=== PATIENT | female | born 1965 | race Caucasian/White ===

== ENCOUNTER → 2016-08-15 | Outpatient (CLI) | payer OTHER | END | disposition home or self-care (01) | LOC: RADMRIMAIN 17:46 | PROVIDERS: ATTEND Nurse Practitioner Acute Care | DX: Z53.9 Procedure and treatment not carried out, unspecified reason (principal) ==

== ENCOUNTER 2016-09-15 21:21 | Emergency (ER) | payer OTHER ==
[2016-09-15 21:45] VITALS: BP 145/79; PULSE 90; RESP 20; TEMP 98.2
--- NOTE | 2016-09-15 21:58 | ED ---
Lower Extremity Injury HPI - General Chief Complaint: Extremity Injury, Lower Stated Complaint: Knee Pain Time Seen by Provider: 09/15/16 21:48 Source: patient, RN notes reviewed Mode of arrival: wheelchair Limitations: no limitations - History of Present Illness Initial Comments: 51-year-old female presents emergency department with a chief complaint of bilateral lower external. Sensation is intact over by the dog. Patient states she's not having right chest pain radiating pain as well as minimal left. Patient states the discomfort. Patient states she did not hit her head with no other injury. Patient states she was concerned due to the symptoms that she thought that she should be evaluated. Patient denies any recent fever, chills, shortness of breath, chest pain, back pain, abdominal pain, nausea vomiting, numbness or tingling, dysuria or hematuria, constipation or diarrhea, headaches or visual changes, or any other current symptoms. - Related Data Home Medications Medication Instructions Recorded Confirmed Albuterol Inhaler [Ventolin 1 - 2 puff INHALATION RT-Q6H PRN 04/08/15 09/15/16 Inhaler] Aspirin 81 mg PO DAILY 04/08/15 09/15/16 Montelukast [Singulair] 10 mg PO HS 04/08/15 09/15/16 Ranitidine HCl [Zantac] 150 mg PO BID 04/08/15 09/15/16 Simvastatin [Zocor] 20 mg PO HS 04/08/15 09/15/16 metFORMIN HCL [Glucophage] 500 mg PO BID 04/08/15 09/15/16 Beclomethasone Dipropionate [Qvar 1 puff INHALATION RT-BID PRN 09/15/16 09/15/16 80 mcg] Glimepiride [Amaryl] 2 mg PO AC-BRKFST 09/15/16 09/15/16 Melatonin 3 mg PO HS PRN 09/15/16 09/15/16 Naproxen 500 mg PO DAILY PRN 09/15/16 09/15/16 Previous Rx's Medication Instructions Recorded Lisinopril [Zestril] 5 mg PO DAILY #7 tablet 01/25/16 Ibuprofen [Motrin] 600 mg PO Q6HR PRN #20 tab 09/15/16 Allergies Allergy/AdvReac Type Severity Reaction Status Date / Time oxycodone Allergy Hallucinati Verified 09/15/16 22:08 ons Review of Systems ROS Statement: Those systems with pertinent positive or pertinent negative responses have been documented in the HPI. ROS Other: All systems not noted in ROS Statement are negative. Past Medical History Past Medical History: COPD History of Any Multi-Drug Resistant Organisms: None Reported Past Surgical History: Appendectomy, Tubal Ligation Additional Past Surgical History / Comment(s): vascular bypass Past Psychological History: Depression Smoking Status: Current every day smoker Past Alcohol Use History: None Reported Past Drug Use History: None Reported General Exam - General Exam Comments Initial Comments: General: The patient is awake and alert, in no distress, and does not appear acutely ill. Neck: The neck is supple, there is no tenderness. Cardiovascular: There is a regular rate and rhythm. No murmur, rub or gallop is appreciated. Respiratory: Lungs are clear to auscultation, respirations are non-labored, breath sounds are equal. No wheezes, stridor, rales, or rhonchi. Musculoskeletal: Patient has 2+ pulses throughout the right lower extremity. Patient has full range of motion of the right knee. There does appear to be a contusion with tenderness to anterior palpation of the proximal becerra. Full range of motion of the right ankle with some pedal malleolus tenderness and minimal swelling noted. Patient has 2+ pulses throughout the left lower extremity. Sensation is intact throughout. Patient does have full range of motion. No abnormality noted. Neurological: CN II-XII intact, There are no obvious motor or sensory deficits. Coordination appears grossly intact. Speech is normal. Skin: Skin is warm and dry and no rashes or lesions are noted. Psychiatric: Normal mood and affect. Limitations: no limitations Course Vital Signs 09/15/16 21:43 Temperature 98.2 F Pulse Rate 90 Respiratory 20 Rate Blood Pressure 145/79 O2 Sat by Pulse 98 Oximetry Medical Decision Making - Medical Decision Making 51-year-old female presents to the emergency Department chief complaint of fall. This time x-rays reviewed with essentially acute fracture. Symphysis patient has a left becerra contusion. Motrin Tylenol for pain control. We discussed rest ice and elevation. We discussed return parameters and questions. Discharged home. - Radiology Data Radiology results: report reviewed, image reviewed Disposition Clinical Impression: Contusion of skin, Fall, Right ankle sprain Disposition: HOME SELF-CARE Condition: Stable Instructions: Contusion in Adults (ED), Ankle Sprain (ED) Additional Instructions: Please use medication as discussed. Please follow up with family doctor if symptoms have not improved over the next two days. Please return to the emergency room if your symptoms increase or worsen or for any other concerns. Prescriptions: Ibuprofen [Motrin] 600 mg PO Q6HR PRN #20 tab PRN Reason: Pain Referrals: Aryan Noble MD [Primary Care Provider] - 1-2 days Time of Disposition: 22:47
[2016-09-15] MEDS ORDERED: KETOROLAC 60 MG/2 ML VIAL IM STA (22:27)
--- NOTE | 2016-09-15 22:45 | XR ---
History: Reason: Pain Exam: XR RIGHT TIB/FIB 4 images Comparison: None available FINDINGS: No fracture. Soft tissue swelling medial ankle and anterior to the proximal tibia. IMPRESSION: No fracture. Soft tissue swelling medial ankle and anterior to the proximal tibia.
== END 2016-09-15 23:07 | disposition home or self-care (01) ==
LOC: EC 21:21
DX: S93.401A Sprain of unspecified ligament of right ankle, initial encounter (principal); F17.200 Nicotine dependence, unspecified, uncomplicated; Z88.5 Allergy status to narcotic agent; Z79.84 Long term (current) use of oral hypoglycemic drugs; Z79.82 Long term (current) use of aspirin; Z79.899 Other long term (current) drug therapy; W54.8XXA Other contact with dog, initial encounter
CPT/HCPCS: 99283; 96372; 73590; J1885

== ENCOUNTER → 2016-09-22 | Outpatient (CLI) | payer OTHER ==
--- NOTE | 2016-09-22 12:01 | MR ---
EXAMINATION TYPE: MR lumbar spine wo con DATE OF EXAM: 09/22/2016 10:35 AM COMPARISON: NONE HISTORY: Back pain TECHNIQUE: T1 and T2 axial and sagittal images of the lumbar spine are submitted. FINDINGS: There is no abnormal signal seen within the visualized spinal cord or paraspinal soft tissu es. Simple appearing renal cyst noted. There is mild multilevel degenerative disc disease. At L1-2 there is no disc herniation or canal stenosis. No foraminal encroachment. At L2-3 there is left paracentral and lateral disc protrusion with mild to moderate left foraminal en croachment. Hypertrophic change of the facets. At L3-4 there is degenerative disc disease with diffuse disc bulging greater paracentrally and latera lly to the left with moderate left-sided foraminal encroachment At L4-5 there is facet arthropathy. There is no focal herniation although, there is diffuse disc bulg ing and mild bilateral foraminal encroachment. No Canal stenosis. At L5-S1 there is facet arthropathy but no disc herniation or canal stenosis. No neural foraminal enc roachment. IMPRESSION: 1. Mild multilevel degenerative disc disease with disc bulging paracentrally and laterally to left L2 -3 and L3-4 with left-sided foraminal encroachment. Paracentral and lateral disc protrusion at L2-3. 2. Circumferential disc bulging L4-5 with mild bilateral foraminal encroachment.
--- NOTE | 2016-09-22 12:08 | MR ---
EXAMINATION TYPE: MR C-spine wo DATE OF EXAM: 09/22/2016 10:22 AM COMPARISON: NONE HISTORY: Headaches and neck pain TECHNIQUE: T1 sagittal and coronal, T2 sagittal, and gradient echo axial views of the cervical spine are submitted. FINDINGS: The cranial cervical junction is preserved. Exam limited by motion artifact. Patient was c laustrophobic. Assessment spinal cord is nondiagnostic. Severe motion artifact resulting in nearly nondiagnostic study. There is suspicion for a disc protrus ion centrally at C6-C7 which abuts the anterior margin the spinal cord. However given the amount of a rtifact consider CT scan or repeat MRI for further assessment. Multilevel mild degenerative disc disease suspected. IMPRESSION: 1. Severe motion artifact due to claustrophobia markedly limits the exam. Assessment spinal cord is nondiagnostic due to motion. There is a suggestion of a central area of abnormal signal which could b e artifact. Central prominent canal or syrinx in the differential. Could not exclude myelitis. 2. Extreme motion artifact resulting in nearly nondiagnostic study for disc pathology. Suspect a cent ral disc protrusion or small herniation C6-C7 which abuts the anterior margin of the spinal cord. EXAMINATION TYPE: MR brain wo DATE OF EXAM: 09/22/2016 10:22 AM COMPARISON: NONE HISTORY: Headaches and neck pain T1-weighted sagittal, T2, FLAIR, and diffusion axial, and T2 coronal coronal views of the brain are s ubmitted. There is no evidence of acute ischemia. The ventricles, basal cisterns, and sulci overlying the conv exities are consistent with the patient's age. There is no mass effect. Craniocervical junction maintained. Sella turcica has a normal appearance. No cerebellopontine angle mass. Changes of chronic sinusitis noted. No midline shift. White matter: There are approximately 20 areas of abnormal signal seen throughout the white matter in a nonspecific pattern. All measure less than 5 mm. No callosal lesions. No lesions perpendicular to the ventricular system. IMPRESSION: 1. No acute intracranial process 2. Mild nonspecific white matter changes. BE seen with hypertension, migraine headaches, remote micro vascular ischemia, demyelinating process not excluded. Correlate clinically.
== END | disposition home or self-care (01) ==
LOC: RADMRIMAIN 09:10
PROVIDERS: ATTEND Psychiatry & Neurology Neurology
DX: M51.26 Other intervertebral disc displacement, lumbar region (principal); M51.36 Other intervertebral disc degeneration, lumbar region; R90.82 White matter disease, unspecified; M54.2 Cervicalgia; R51 Headache
CPT/HCPCS: 70551; 72141; 72148

== ENCOUNTER 2017-07-05 18:22 | Inpatient (IN) | payer OTHER ==
[2017-07-05] MEDS ORDERED: MORPHINE SULFATE 4 MG/ML SYRINGE IV STA (18:44)
[2017-07-05] MEDS ORDERED: ASPIRIN 81 MG PO STA (18:44)
[2017-07-05] MEDS ORDERED: NITROGLYCERIN OINT 1 INCH/GM PACKET TOPICAL STA (18:44)
[2017-07-05] MEDS ORDERED: ONDANSETRON 4 MG/2 ML VIAL IVP STA (18:44)
[2017-07-05] MEDS ORDERED: HEPARIN SODIUM,PORCINE 5,000 UNIT/ML 1 ML VIAL IV PRN (18:54)
[2017-07-05] MEDS ORDERED: HEPARIN SODIUM,PORCINE 5,000 UNIT/ML 1 ML VIAL IV ONE (18:54)
--- NOTE | 2017-07-05 18:54 | ED ---
Chest Pain HPI - General Chief Complaint: Chest Pain Stated Complaint: Chest pain Time Seen by Provider: 07/05/17 18:39 Source: patient Mode of arrival: wheelchair Limitations: no limitations - History of Present Illness Initial Comments: 19 years O female has a chest pain ongoing since yesterday morning, its in the center and radiates to the left side also complaining about the pain in the left arm she is short-winded it hurts to take a deep breath she has a smoker and she does have a history of family history of coronary artery disease and had a headache [place] at young age review of system is otherwise unremarkable area denies any headaches no neck stiffness no abdominal pain no frequency urgency dysuria no symptoms of TIA or CVA - Related Data Home Medications Medication Instructions Recorded Confirmed Albuterol Inhaler [Ventolin 1 - 2 puff INHALATION RT-Q6H PRN 04/08/15 09/15/16 Inhaler] Aspirin 81 mg PO DAILY 04/08/15 09/15/16 Montelukast [Singulair] 10 mg PO HS 04/08/15 09/15/16 Ranitidine HCl [Zantac] 150 mg PO BID 04/08/15 09/15/16 Simvastatin [Zocor] 20 mg PO HS 04/08/15 09/15/16 metFORMIN HCL [Glucophage] 500 mg PO BID 04/08/15 09/15/16 Beclomethasone Dipropionate [Qvar 1 puff INHALATION RT-BID PRN 09/15/16 09/15/16 80 mcg] Glimepiride [Amaryl] 2 mg PO AC-BRKFST 09/15/16 09/15/16 Melatonin 3 mg PO HS PRN 09/15/16 09/15/16 Naproxen 500 mg PO DAILY PRN 09/15/16 09/15/16 Previous Rx's Medication Instructions Recorded Lisinopril [Zestril] 5 mg PO DAILY #7 tablet 01/25/16 Ibuprofen [Motrin] 600 mg PO Q6HR PRN #20 tab 09/15/16 Allergies Allergy/AdvReac Type Severity Reaction Status Date / Time oxycodone Allergy Hallucinati Verified 07/05/17 18:28 ons Review of Systems ROS Statement: Those systems with pertinent positive or pertinent negative responses have been documented in the HPI. ROS Other: All systems not noted in ROS Statement are negative. EKG Findings - EKG Comments: EKG Findings:: EKG is a normal sinus rhythm ventricular rate is 94 UT interval is 142 QRS duration is 82 QT/QTc is 350/4:30 7D of this EKG revealed ST depression in lead [address] elevation is ST elevation in lead 3 and aVF noticed significant ST depression in lead V2 V3 V4 V5 and V6 Past Medical History Past Medical History: COPD, Fibromyalgia, Osteoarthritis (OA) History of Any Multi-Drug Resistant Organisms: None Reported Past Surgical History: Appendectomy, Tubal Ligation Additional Past Surgical History / Comment(s): vascular bypass Past Psychological History: Depression Smoking Status: Current every day smoker Past Alcohol Use History: None Reported Past Drug Use History: None Reported General Exam - General Exam Comments Initial Comments: General: The patient is awake and alert, in severe distress pain is 8/ 10 she is swetting she is crying Skin: Skin is warm and dry and no rashes or lesions are noted. Eye: Pupils are equal, round and reactive to light, extra-ocular movements are intact; there is normal conjunctiva bilaterally. Ears, nose, mouth and throat: There are moist mucous membranes and no oral lesions. Neck: The neck is supple, there is no tenderness or JVD. Cardiovascular: There is a regular rate and rhythm. No murmur, rub or gallop is appreciated. Respiratory: To auscultation bilateral, some compatible with a moderate COPD Gastrointestinal: Soft, non-distended, non-tender abdomen without masses or organomegaly noted. There is no rebound or guarding present. Bowel sounds are unremarkable. Back: There is no tenderness to palpation in the midline. There is no obvious deformity. Musculoskeletal: Normal ROM, no tenderness, There is no pedal edema. There is no calf tenderness or swelling. No cords were appreciated. Neurological: CN II-XII intact, Cranial nerves III through XII are intact. There are no obvious motor or sensory deficits. Coordination appears grossly intact. Speech is normal. Psychiatric: Cooperative, appropriate mood & affect, normal judgment. Limitations: no limitations Course Vital Signs 07/05/17 18:25 Temperature 97.9 F Pulse Rate 98 Respiratory 20 Rate Blood Pressure 130/86 O2 Sat by Pulse 95 Oximetry Critical Care Time Total Critical Care Time: 30 Critical Care Time: She came in with a severe chest pain, she is 52 years old she has a history of diabetes hyperlipidemia hypertension and she also has a family history of coronary artery disease she had a severe pain in the midsternal area since yesterday pain and told by her radiating to the left arm is very very typical presentation of myocardial ischemic phenomenon EKG was reviewed noticed some ST segment elevation and now lead 3 and aVF, this was compared with the old EKG back done in August 2011, there significant ischemic changes in V2 V3 V4 V5 and V6 she has a STEMI she had aspirin she had at night now she had a heparin no current to IV's lying STEMI alert was activated her cardiology on-call has been has been called and no free she be heading to the [facility] soon she be admitted to Dr. Michaels's service and she will pass gas will go to ICU, spoke with the Dr. Edgar and we have activated the [facility]rome[facility] Disposition Clinical Impression: Chest pain, STEMI (ST elevation myocardial infarction) Disposition: ADMITTED IP TO THIS HOSP
[2017-07-05] MEDS: SODIUM CHLORIDE 0.9% 1,000 ML IV STA ×2 (18:55→21:45)
[2017-07-05 19:00] LABS: Basophils # (A) 0.1 k/uL (0-0.2); Basophils % (A) 1 %; Eosinophils # (A) 0.2 k/uL (0-0.7); Eosinophils % (A) 2 %; HCT 49.1 % (34.0-46.0); HGB 15.7 gm/dL (11.4-16.0); Lymphocytes # (A) 3.3 k/uL (1.0-4.8); Lymphocytes % (A) 32 %; MCHC 31.9 g/dL (31.0-37.0); MCV 97.3 fL (80.0-100.0); Mean Platelet Volume 7.8; Monocytes # (A) 0.6 k/uL (0-1.0); Monocytes % (A) 6 %; Neutrophils # (A) 6.2 k/uL (1.3-7.7); Neutrophils % (A) 59 %; Platelet Count 284 k/uL (150-450); RBC 5.04 m/uL (3.80-5.40); RDW 13.1 % (11.5-15.5); WBC 10.6 k/uL (3.8-10.6)
[2017-07-05] MEDS ORDERED: HEPARIN SOD,PORK IN 0.45% NACL 25,000 UNIT in 0.45% NACL 1 500ML.BAG IV SCH (19:00)
[2017-07-05] MEDS ORDERED: MORPHINE SULFATE 4 MG/ML SYRINGE IVP STA (19:07)
[2017-07-05 19:13] LABS: ALT 47 U/L (9-52); AST 43 U/L (14-36); Albumin 4.3 g/dL (3.5-5.0); Alkaline Phosphatase 89 U/L (38-126); Anion Gap 10 mmol/L; Blood Urea Nitrogen 11 mg/dL (7-17); Carbon Dioxide 29 mmol/L (22-30); Chloride 103 mmol/L (98-107); Glucose 120 mg/dL (74-99); Potassium 4.2 mmol/L (3.5-5.1); Sodium 142 mmol/L (137-145); Total Bilirubin 0.6 mg/dL (0.2-1.3); Total Protein 7.3 g/dL (6.3-8.2)
[2017-07-05 19:18] LABS: D-Dimer 0.49 mg/L FEU (<0.60)
[2017-07-05 19:22] LABS: Prothrombin Time 9.5 sec (9.0-12.0)
--- NOTE | 2017-07-05 19:22 | XR ---
EXAMINATION TYPE: XR chest 2V DATE OF EXAM: 07/05/2017 COMPARISON: 09/24/2015. HISTORY: Chest pain TECHNIQUE: Frontal and lateral views of the chest are obtained. FINDINGS: Diffuse interstitial prominence is favored to relate to mild pulmonary vascular congestion. Heart is mildly enlarged. There is no focal air space opacity, pleural effusion, or pneumothorax se en. The osseous structures are intact. IMPRESSION: Mild interstitial prominence is favored to relate to mild interstitial edema in the sett ing of cardiomegaly and may relate to cardiogenic fluid overload.
[2017-07-05 19:36] LABS: Creatine Kinase MB 5.6 ng/mL (0.0-2.4); Troponin I 1.13 ng/mL (0.000-0.034)
[2017-07-05] MEDS ORDERED: NALOXONE 0.4 MG/ML 1 ML VIAL IV PRN (19:37)
[2017-07-05] MEDS ORDERED: IPRATROPIUM-ALBUTEROL 3 ML NEB INHALATION PRN (19:37)
[2017-07-05] MEDS ORDERED: MORPHINE SULFATE 4 MG/ML SYRINGE IV PRN ×2 (19:37→20:54)
[2017-07-05] MEDS ORDERED: VERAPAMIL 2.5 MG/ML 2 ML AMP ONE (19:39)
[2017-07-05] MEDS ORDERED: diphenhydrAMINE 50 MG/ML 1 ML VIAL ONE (19:42)
[2017-07-05] MEDS ORDERED: MIDAZOLAM 2 MG/2 ML VIAL ONE (19:42)
[2017-07-05] MEDS ORDERED: LIDOCAINE 2% INJ 20 MG/ML SQ ONE (19:46)
[2017-07-05] MEDS ORDERED: SODIUM CHLORIDE 0.9% 1,000 ML IV ONE (19:48)
[2017-07-05] MEDS ORDERED: diphenhydrAMINE 50 MG/ML 1 ML VIAL IVP ONE (19:48)
[2017-07-05] MEDS: MIDAZOLAM 2 MG/2 ML VIAL IV ONE ×2 (19:48→19:50)
[2017-07-05] MEDS: VERAPAMIL SYRINGE (5 MG/10 ML) INTRAARTER ONE ×2 (19:55→20:42)
[2017-07-05] MEDS ORDERED: BIVALIRUDIN BOLUS 250 MG/50 ML IV ONE (20:08)
[2017-07-05] MEDS ORDERED: BIVALIRUDIN 250 MG in SODIUM CHLORIDE 0.9% 50 ML IV ONE (20:09)
[2017-07-05] MEDS ORDERED: METOPROLOL TARTRATE 5 MG/5 ML VIAL IVP ONE (20:21)
[2017-07-05] MEDS: METOPROLOL TARTRATE 5 MG/5 ML VIAL IVP ONE ×2 (20:23→20:26)
[2017-07-05] MEDS ORDERED: NITROGLYCERIN 1000MCG/10ML SYRINGE INTRACORON ONE (20:23)
[2017-07-05] MEDS ORDERED: PRASUGREL 10 MG TAB ONE (20:33)
[2017-07-05] MEDS ORDERED: HYDROmorphone 2 MG/ML 1 ML SYRINGE ONE (20:37)
[2017-07-05] MEDS ORDERED: HYDROmorphone 2 MG/ML 1 ML SYRINGE IV ONE (20:40)
[2017-07-05] MEDS ORDERED: IOHEXOL 350 MG/ML (PER ML) 100ML BTL INJ ONE (20:42)
[2017-07-05] MEDS ORDERED: PRASUGREL 10 MG TAB PO ONE (20:42)
[2017-07-05] MEDS ORDERED: ZOLPIDEM 5 MG TAB PO PRN (20:55)
[2017-07-05] MEDS ORDERED: ATROPINE SULFATE 0.1 MG/ML 10ML SYRINGE IV PRN (20:55)
[2017-07-05] MEDS ORDERED: MAG HYDROX/AL HYDROX/SIMETH 30 ML CUP PO PRN (20:55)
[2017-07-05] MEDS ORDERED: NITROGLYCERIN SL TABS 0.4 MG TAB SUBLINGUAL PRN (20:55)
[2017-07-05] MEDS ORDERED: RX INFO: IV CONTRAST WAS GIVEN 1 EACH MISC MISCELLANE PRN (20:55)
[2017-07-05] MEDS ORDERED: ATORVASTATIN 10 MG TAB PO SCH (21:00)
[2017-07-05] MEDS ORDERED: metFORMIN 500 MG TAB PO SCH (21:00)
[2017-07-05] MEDS ORDERED: SODIUM CHLORIDE 0.9% 1,000 ML IV SCH (21:00)
[2017-07-05 21:19] LABS: Glucose,Whole Blood 118 mg/dL (75-99)
--- NOTE | 2017-07-05 21:36 | CONS ---
CONSULTATION Mrs. Plunkett is a 52-year-old lady who smokes at least 1 to 1-1/2 packs daily. She has hypertension, type 2 diabetes, hyperlipidemia, peripheral arterial disease and underwent in 2016 vascular surgery with aortobifem. The details of the surgery are unavailable. She had an operation here in [facility] and she went to [facility] for a redo operation for infection. In spite of this, she continues to smoke regularly. For the last 36 hours, she has been experiencing chest pressure which she describes as a heaviness and tightness that comes on with activity, goes away after about 5-7 minutes or so. This happened on and off for the last 36 hours, but today at about 3:30 her chest pressure became very constant and she had a heavy feeling radiating to both upper extremities and she came to the emergency room. She was seen by the emergency room physician, Dr. Laboy and EKG suggested a precordial ST-T pressure without any clear-cut ST elevation on the EKG. Given her presentation of the chest discomfort and precordial ST depression, she was advised to have a coronary angiography and intervention and the cardiac hot plate plywood press laborer team was called in. I saw the patient in the hot plate plywood press laborer. She was still having mild discomfort, but most of the pain had relieved and EKG showed almost near complete resolution of the ST-segment depression, which was seen in the emergency room. She was, however, hemodynamically stable and did not have much chest discomfort in the hot plate plywood press laborer as compared to the ER. EKG also revealed resolution of the precordial ST depression. PAST MEDICAL HISTORY: 1. Obesity. 2. Smoking and COPD. 3. Hyperlipidemia. 4. Type 2 diabetes mellitus on oral agents. 5. History of peripheral artery disease status post vascular surgery for lower extremities, details of which are not available. She has scars on both sites and has grafts. MEDICATIONS: At home include metformin 500 mg b.i.d., Januvia 100 mg daily, glimepiride 2 mg daily, trazodone 300 mg daily, vitamin D 2000 international units daily, simvastatin 20 mg daily, Singulair 10 mg daily. She is on a tapering dose of prednisone for bronchitis. ALLERGIES: ALLERGIES ARE OXYCODONE. EXAMINATION: Blood pressure was 120/80, pulse rate is about 90 per minute, regular. HEENT: Unremarkable. Fundus was not examined by me. NECK: Supple. There is no JVD. I do not hear a carotid bruit. Heart exam reveals S1, S2 heard normally but distantly. Lungs reveal bilateral decent air entry. Abdomen is soft, nontender. Lower extremities reveal diminished pulses. There are scars in both the groins. Radial pulses are palpable. Central nervous system grossly no focal deficits. EKG revealed a sinus mechanism, sinus tachycardia with precordial ST depression. LABORATORY DATA: Revealed that her initial troponin was 1.13. Other labs were within normal limits. IMPRESSION: 1. Acute ischemic syndrome, probably non-ST elevation myocardial infarction. 2. Type 2 diabetes mellitus. 3. History of vascular surgery, bilateral lower extremities has scars. 4. Obesity. 5. Smoking and chronic obstructive pulmonary disease. 6. Hyperlipidemia. RECOMMENDATIONS: I recommend cardiac catheterization and intervention and proceeded to perform the procedure expeditiously. The risks, benefits, options were carefully explained to the patient. She understood all details and wished to proceed. MMODL / IJN: [id number] /
[2017-07-05] MEDS ORDERED: SODIUM CHLORIDE 0.9% 250 ML IV ONE (21:46)
--- NOTE | 2017-07-05 21:57 | CC ---
CARDIAC CATHETERIZATION REPORT DATE OF SERVICE: 07/05/2017. PROCEDURE: 1. Left heart catheterization, coronary angiography. 2. Percutaneous transluminal coronary angiography (PTCA) and stenting of proximal circumflex coronary artery with a drug-eluting stent. PERFORMED BY: Dr. Aletha Edgar. ANESTHESIA: Moderate conscious sedation, time 54 minutes. Patient was monitored closely with oxygen saturation and vital signs. CLINICAL INFORMATION: Julianna Orozco is a 52-year-old lady with peripheral artery disease, hypertension, hyperlipidemia, type 2 diabetes, and previous bilateral lower extremity vascular surgery, details of which are not available. I explained to the patient that I will perform procedure from the right radial approach. She was pain-free at the time of the procedure. The previously noted precordial ST-segment depression had resolved. She was relatively stable hemodynamically. PROCEDURE NOTE: Under local anesthesia and strict aseptic precautions, a 6-Niuean introducer was placed in the right radial artery. I used a micropuncture needle technique. I used a standard right Bijal catheter for selective coronary angiography of the right coronary artery. The aortic root was somewhat narrow. I had some difficulty to gain access with a standard left Bijal catheter. I switched over to Ikari 3.5, 6-Niuean guide catheter. With this I cannulated the left coronary artery and obtained pictures. I noted that the circumflex had a tight proximal lesion. LAD had noncritical irregularities. RCA had a 35% proximal lesion. She had a codominant system. LV pressures were obtained with a pigtail catheter after intervention procedure. Following the procedure, a TR band was applied as per protocol. Good hemostasis was secured. Saturation in the fingers of the right hand was 97%. CARDIAC CATHETERIZATION FINDINGS: The left ventricle end-diastolic pressure was 20 mmHg. There was no gradient across aortic valve. CORONARY ANGIOGRAPHIC FINDINGS: Right coronary artery: Technically a codominant vessel, has about a 35% proximal lesion distally, has minor irregularities. No significant disease. It gives off what seems to be mostly a PDA branch which has minor irregularities, no significant disease. It appears to be a codominant vessel. Left main coronary artery: The catheter during the injections kept abutting against the superior wall. There is, however, no significant left main stenosis. This is a short patent disease-free vessel that bifurcates into LAD and circumflex. Left main itself does not have any significant disease. The ostium has mild narrowing, but the catheter was against the superior aspect. Left anterior descending coronary artery: This is a good caliber vessel, extends along the anterior wall, has minor irregularities throughout and over the apex the vessel curves around and supplies the inferoapical portion of the left ventricle. There are areas about 30% to 35% narrowing in the LAD, but no critical stenosis. Thee are fair- sized diagonal and septal branches which are free of significant disease. Left posterior circumflex coronary artery: Codominant vessel, gives off a very tiny obtuse marginal proximally and then there is a hazy 95% stenosis with thrombus, after which it gives off a second obtuse marginal and distally gives off a posterolateral branch and a groove branch. The circumflex is a good caliber vessel has a 95% proximal stenosis. FINAL IMPRESSION: This patient has a 95% proximal circumflex stenosis, a codominant vessel. RCA has a 35% mid LAD has a 30% to 35% narrowing. Filling pressures are mildly elevated. LV gram was not performed. RECOMMENDATIONS: I recommend intervention of the circumflex that was performed expeditiously. MMODL / IJN: [id number] /
--- NOTE | 2017-07-05 22:06 | LTR ---
July 05, 2017 Dr. Aryan Noble RE: José Manuel Orozco Dear Dr. Noble: Thank you for opportunity to participate in the care of Mrs. Julianna Orozco. Please find enclosed my detailed cardiac cath report for your records. I am pleased to report to you that this lady had an excellent angiographic result. She presented with chest pain and ST-segment depression suggestive of non-ST elevation MT, underwent prompt cardiac cath and PCI with excellent result. Please find enclosed my report for your records. Thank you for the referral. Kindest Regards and Sincerely, KAYLYNN / LIZZETTEN: [id number] /
--- NOTE | 2017-07-05 22:06 | PTCA ---
PERCUTANEOUSTRANS CORORONARY ANGIOGRAPHY DATE OF SERVICE: 07/05/2017. PROCEDURE DETAILS: I used an Ikari 6-Maltese 3.5 curved catheter to cannulate the left coronary artery. The guide support was not optimal. However, with a Whisper wire, I crossed the lesion. Wire was kept distally. A 3.25 caliber 12 mm Trek balloon was used to pre-dilate the lesion. I then deployed a 15 mm long 3.25 caliber Xience stent at 12 atmospheres. Patient had chest pain and precordial ST depression. Excellent angiographic result without complication was achieved. Patient received Angiomax bolus and infusion and also 60 mg of Effient. Excellent angiographic result without complication was achieved. The sheath was taken out and a TR band applied as per protocol with good saturation in the fingers of the right hand. Results were then discussed with the patient and family members. She was sent to the room in stable condition. She was counseled regarding the need to quit smoking. MMODL / IJN: [id number] /
[2017-07-05] MEDS: ATORVASTATIN 80 MG TAB PO SCH (22:37)
[2017-07-05] MEDS: MONTELUKAST 10 MG TAB PO SCH (22:38)
[2017-07-05] MEDS: traZODone HCL 100 MG TAB PO SCH (22:38)
[2017-07-05] MEDS: SODIUM CHLORIDE 0.9% 1,000 ML IV SCH (22:46)
[2017-07-05] MEDS ORDERED: SODIUM CHLORIDE 0.9% 500 ML IV ONE (23:00)
[2017-07-05] MEDS: NOREPINEPHRIN 4 MG-0.9% NS PMX 4 MG/250 ML ML IV SCH (23:16)
[2017-07-06] MEDS ORDERED: SODIUM CHLORIDE 0.9% 1,000 ML IV SCH ×2 (04:00→09:45)
[2017-07-06] MEDS: NOREPINEPHRIN 4 MG-0.9% NS PMX 4 MG/250 ML ML IV SCH (04:09)
[2017-07-06 06:34] LABS: Anion Gap 7 mmol/L; Blood Urea Nitrogen 10 mg/dL (7-17); Calcium 8.6 mg/dL (8.4-10.2); Carbon Dioxide 25 mmol/L (22-30); Chloride 108 mmol/L (98-107); Glucose 145 mg/dL (74-99); Potassium 4.1 mmol/L (3.5-5.1); Sodium 140 mmol/L (137-145)
[2017-07-06 06:41] LABS: Basophils # (A) 0.1 k/uL (0-0.2); Basophils % (A) 0 %; Eosinophils # (A) 0.2 k/uL (0-0.7); Eosinophils % (A) 1 %; HGB 13.8 gm/dL (11.4-16.0); Lymphocytes # (A) 3.5 k/uL (1.0-4.8); Lymphocytes % (A) 28 %; MCH 31.3 pg (25.0-35.0); MCHC 32.7 g/dL (31.0-37.0); MCV 95.7 fL (80.0-100.0); Mean Platelet Volume 7.7; Monocytes # (A) 0.6 k/uL (0-1.0); Monocytes % (A) 5 %; Neutrophils # (A) 7.9 k/uL (1.3-7.7); Neutrophils % (A) 64 %; Platelet Count 244 k/uL (150-450); RBC 4.39 m/uL (3.80-5.40); RDW 13.3 % (11.5-15.5); WBC 12.4 k/uL (3.8-10.6)
[2017-07-06 08:55] LABS: Glucose,Whole Blood 131 mg/dL (75-99)
[2017-07-06] MEDS ORDERED: predniSONE 10 MG TAB PO SCH (09:00)
[2017-07-06] MEDS ORDERED: LISINOPRIL 10 MG TAB PO SCH ×2 (09:00→21:00)
[2017-07-06] MEDS: SODIUM CHLORIDE 0.9% 1,000 ML IV SCH ×2 (09:18→15:19)
[2017-07-06] MEDS: PRASUGREL 10 MG TAB PO SCH (09:19)
[2017-07-06] MEDS: CHOLECALCIFEROL 1,000 UNIT TAB PO SCH (09:19)
[2017-07-06] MEDS: B COMPLEX-VIT C-VIT E-ZINC 1 EACH TAB PO SCH (09:19)
[2017-07-06] MEDS: LINAGLIPTIN 5 MG TABLET PO SCH (09:19)
[2017-07-06] MEDS: GLIMEPIRIDE 2 MG TAB PO SCH (09:19)
[2017-07-06] MEDS: FAMOTIDINE 20 MG TAB PO SCH (09:19)
[2017-07-06] MEDS: ASPIRIN 81 MG PO SCH (09:19)
--- NOTE | 2017-07-06 09:22 | P.CNPUL ---
History of Present Illness Consult date: 07/06/17 Reason for consult: chest pain Chief complaint: Chest pain History of present illness: Consult dated 07/06/2017 This is a 52-year-old female presents to the emergency department with complaints of chest pain. He apparently started 1 day prior to admission to the emergency room. Apparently was in the center of his chest and radiated to the left side. It also radiated into the left arm. She was short of breath as well. She apparently does have a family history of coronary artery disease She apparently has a history of osteoarthritis fibromyalgia COPD hypertension diabetes hyperlipidemia the patient was admitted to the ICU. The patient ended up having a ST segment elevation myocardial infarction. One of the cardiologists placed a stent to the proximal circumflex coronary artery. The patient's on O2 at 2 L per nasal cannula. She's getting a saline IV at 75 mL now and norepinephrine at 10 mcg/m. Her blood pressure is excellent and I believe the vasopressor can be weaned down. Labs x-rays and medications are all reviewed. Review of Systems A 12 point review of system is positive for chest pain and shortness of breath. Her pain was pretty typical of cardiac disease. She's not having pain currently. Past Medical History Past Medical History: COPD, Fibromyalgia, Hypertension, Osteoarthritis (OA) History of Any Multi-Drug Resistant Organisms: None Reported Past Surgical History: Appendectomy, Tubal Ligation Additional Past Surgical History / Comment(s): vascular bypass bilateral, Past Anesthesia/Blood Transfusion Reactions: No Reported Reaction Past Psychological History: Depression Smoking Status: Current every day smoker Past Alcohol Use History: None Reported Past Drug Use History: None Reported - Past Family History Father Family Medical History: Cancer, Hypertension, Myocardial Infarction ([place]) Additional Family Medical History / Comment(s): Bone CA Medications and Allergies Home Medications Medication Instructions Recorded Confirmed Type Aspirin 81 mg PO DAILY 04/08/15 07/05/17 History Montelukast [Singulair] 10 mg PO HS 04/08/15 07/05/17 History Ranitidine HCl [Zantac] 150 mg PO DAILY 04/08/15 07/05/17 History Simvastatin [Zocor] 20 mg PO HS 04/08/15 07/05/17 History Glimepiride [Amaryl] 2 mg PO -BRKFST 09/15/16 07/05/17 History Cholecalciferol (Vitamin D3) 2,000 unit PO DAILY 07/05/17 07/05/17 History [Vitamin D3] HYDROcodone/APAP 7.5-325MG [[place] 1 tab PO BID PRN 07/05/17 07/05/17 History 7.5-325] Vitamin B Complex 1 cap PO DAILY 07/05/17 07/05/17 History metFORMIN HCL ER [Glucophage Xr] 500 mg PO BID 07/05/17 07/05/17 History predniSONE 10 mg PO DAILY 07/05/17 07/05/17 History sitaGLIPtin [Januvia] 100 mg PO DAILY 07/05/17 07/05/17 History traZODone HCL 300 mg PO HS 07/05/17 07/05/17 History Allergies Allergy/AdvReac Type Severity Reaction Status Date / Time oxycodone Allergy Hallucinati Verified 07/05/17 18:28 ons Physical Exam Osteopathic Statement: *. No significant issues noted on an osteopathic structural exam other than those noted in the History and Physical/Consult. Vitals: Vital Signs Temp Pulse Resp BP Pulse Ox 07/06/17 07:00 74 15 104/72 96 07/06/17 06:45 69 16 93/64 95 07/06/17 06:30 71 14 95/66 94 L 07/06/17 06:15 73 13 88/63 94 L 07/06/17 06:00 70 13 100/73 95 07/06/17 05:45 72 11 L 99/71 95 07/06/17 05:30 71 12 99/73 96 07/06/17 05:20 64 12 99/73 96 07/06/17 05:10 64 12 101/70 96 07/06/17 05:00 66 12 92/67 96 07/06/17 04:50 68 11 L 96 07/06/17 04:40 64 12 92/67 95 07/06/17 04:30 60 11 L 87/68 95 07/06/17 04:20 62 12 87/68 95 07/06/17 04:10 69 9 L 95/69 96 07/06/17 04:00 97.7 F 62 13 94/71 95 07/06/17 03:50 64 12 94/71 95 07/06/17 03:40 66 11 L 101/77 95 07/06/17 03:30 70 17 96/69 95 18 03:20 63 12 96/69 95 18 03:10 61 11 L 93/72 96 07/06/17 03:00 67 14 90/73 96 18 02:50 64 12 90/73 96 18 02:40 64 11 L 93/67 96 18 02:30 64 12 92/66 95 07/06/17 02:20 63 11 L 92/66 95 07/06/17 02:10 63 11 L 91/67 95 07/06/17 02:00 65 14 83/72 94 L 07/06/17 01:50 67 13 91 L 07/06/17 01:40 84 49 H 98/68 95 07/06/17 01:30 72 34 H 90/68 94 L 07/06/17 01:20 76 32 H 104/77 94 L 07/06/17 01:10 68 23 96/74 94 L 07/06/17 01:00 68 12 95/75 96 07/06/17 00:50 70 14 90/67 93 L 07/06/17 00:40 64 12 90/69 96 18 00:30 64 11 L 89/69 96 07/06/17 00:20 64 12 92/65 95 07/06/17 00:10 64 11 L 81/70 95 18 00:00 66 14 89/66 96 07/05/17 23:50 97.4 F L 67 14 96 18 23:40 69 14 91/72 95 18 23:30 74 26 H 97 18 23:20 66 12 64/49 97 0218 23:10 70 12 73/48 97 0218 23:04 72 11 L 73/48 97 18 23:00 73 12 77/48 96 0218 22:50 77 12 71/53 96 0218 22:40 82 18 73/55 95 07/05/18 22:30 81 18 70/51 97 0218 22:20 82 13 75/59 96 18 22:10 78 18 73/51 96 18 22:00 77 12 75/58 95 07/05/17 21:50 82 15 77/57 94 L 07/05/17 21:40 118 H 27 H 64/53 94 L 07/05/17 21:30 84 23 68/53 93 L 07/05/17 21:25 97.8 F 07/05/17 21:20 83 18 61/48 07/05/17 21:15 81 07/05/17 19:13 101 H 18 122/85 96 07/05/17 19:04 104 H 20 131/99 97 07/05/17 18:25 97.9 F 98 20 130/86 95 Intake and Output 07/05/17 07/06/17 07/06/17 22:59 06:59 14:59 Intake Total 782.5 1505.375 75 Output Total 450 Balance 782.5 1055.375 75 Intake: IV 682.5 1200 75 Sodium Chloride 0.9% 1, 700 000 ml @ 100 mls/hr IV . Q10H [facility] Rx#:[id number] Sodium Chloride 0.9% 1, 75 000 ml @ 75 mls/hr IV . [id number] [facility] Rx#:[id number] Sodium Chloride 0.9% 250 250 ml @ 999 mls/hr IV .Q16M [facility] Rx#:[id number] Sodium Chloride 0.9% 500 500 ml @ 500 mls/hr IV .Q1H [facility] Rx#:[id number] Amount of Fluid Infused ( 100 ml) Intake, IV Titration 305.375 Amount Norepinephrin 4 mg-0.9% 305.375 Ns Pmx 4 mg In 250 ml @ Titrate IV .Q0M [facility] Rx#: [id number] Output: Urine 450 Other: Voiding Method Bedside Commode # Voids 0 0 0 Weight 99.7 kg 101.5 kg No acute distress, oriented 3. Nasal O2 in place HEENT examination is grossly unremarkable. Mucous membranes are moist. No oral lesions. Neck supple. Full range of motion. No adenopathy thyromegaly or neck vein distention. Cardiovascular examination reveals regular rhythm rate. S1-S2 normal. No S3 or S4. No discernible murmur noted. Lungs reveal clear breath sounds. Her sounds are equal bilaterally. No adventitious lung sounds including wheezes rhonchi or crackles. Abdomen soft bowel sounds are heard. No masses or tenderness. Extremities are intact. No cyanosis clubbing or edema. Skin is without rash or lesion. Neurologic examination is brief but nonfocal. Results - Laboratory Findings CBC and BMP: 07/06/17 06:02 07/06/17 06:02 PT/INR, D-dimer PT 9.5 sec (9.0-12.0) 07/05/17 18:47 INR 1.0 (<1.2) 07/05/17 18:47 D-Dimer 0.49 mg/L FEU (<0.60) 07/05/17 18:47 Abnormal lab findings: Abnormal Labs 07/05/17 07/05/17 07/05/17 18:47 18:47 18:47 WBC Hct 49.1 H Neutrophils # APTT Chloride Glucose 120 H POC Glucose (mg/dL) AST 43 H CK-MB (CK-2) 5.6 H* Troponin I 1.130 H* 07/05/17 07/05/17 07/05/17 21:17 22:15 22:15 WBC Hct Neutrophils # APTT 50.0 H Chloride Glucose POC Glucose (mg/dL) 118 H AST CK-MB (CK-2) Troponin I 2.780 H* 07/06/17 07/06/17 07/06/17 06:02 06:02 06:02 WBC 12.4 H Hct Neutrophils # 7.9 H APTT Chloride 108 H Glucose 145 H POC Glucose (mg/dL) AST CK-MB (CK-2) Troponin I 6.820 H* 07/06/17 08:54 WBC Hct Neutrophils # APTT Chloride Glucose POC Glucose (mg/dL) 131 H AST CK-MB (CK-2) Troponin I - Diagnostic Findings Chest x-ray: image reviewed (Labs x-rays a medications are reviewed.) Assessment and Plan Assessment: Assessment ST segment elevation myocardial infarction Status post stent placement in the proximal circumflex coronary artery History of hypertension History of hyperlipidemia History of diabetes History of asthma/COPD History of fibromyalgia and degenerative joint disease Plan: Plan dated 07/06/2017 The patient looks pretty good. I believe the norepinephrine could be weaned down or off. Additional recommendations and suggestions are forthcoming. Labs x-rays a medications are all reviewed. Additional recommendations are made. We 'll continue to follow. Prognosis is guarded. Time with Patient: Greater than 30
--- NOTE | 2017-07-06 10:57 | ECHOF ---
Referral Reason:Eval LV, Post prox circ stent MEASUREMENTS -------- HEIGHT: 162.6 cm WEIGHT: 101.2 kg BP: 102/68 RVIDd: 2.8 cm (< 3.3) IVSd: 1.2 cm (0.6 - 1.1) LVIDd: 4.4 cm (3.9 - 5.3) LVPWd: 1.4 cm (0.6 - 1.1) IVSs: 1.6 cm LVIDs: 3.1 cm LVPWs: 1.3 cm LA Diam: 2.7 cm (2.7 - 3.8) Ao Diam: 3.2 cm (2.0 - 3.7) AV Cusp: 1.6 cm (1.5 - 2.6) LA Diam: 3.6 cm (2.7 - 3.8) MV EXCURSION: 12.495 mm (> 18.000) MV EF SLOPE: 81 mm/s (70 - 150) EPSS: 0.3 cm MV E Kelvin: 0.47 m/s MV DecT: 217 ms MV A Kelvin: 0.74 m/s MV E/A Ratio: 0.64 RAP: 5.00 mmHg RVSP: 32.66 mmHg FINDINGS -------- Sinus rhythm. This ws technically difficult [facility] with suboptimal views, Lumason utilized for enhancement of imge. The left ventricular size is normal. There is mild concentric left ventricular hypertrophy. Overa ll left ventricular systolic function is mildly impaired with, an EF between 45 - 50 %. Basal later al LV wall motion is hypokinetic. Basal posterior LV wall motion is hypokinetic. Mid lateral LV wall motion is hypokinetic. Mid posterior LV wall motion is hypokinetic. The right ventricle is normal in size. The left atrial size is normal. The right atrial size is normal. The aortic valve is trileaflet, and appears structurally normal. No aortic stenosis or regurgitation. The mitral valve is normal. Mild mitral regurgitation is present. Mild tricuspid regurgitation present. There is no evidence of pulmonary hypertension. The right v entricular systolic pressure, as measured by Doppler, is 32.66mmHg. Trace/mild (physiologic) pulmonic regurgitation. The aortic root size is normal. There is no pericardial effusion. CONCLUSIONS -------- 1. Sinus rhythm. 2. This ws technically difficult stuy with suboptimal views, Lumason utilized for enhancement of imge . 3. The left ventricular size is normal. 4. There is mild concentric left ventricular hypertrophy. 5. Overall left ventricular systolic function is mildly impaired with, an EF between 45 - 50 %. 6. Basal lateral LV wall motion is hypokinetic. 7. Basal posterior LV wall motion is hypokinetic. 8. Mid lateral LV wall motion is hypokinetic. 9. Mid posterior LV wall motion is hypokinetic. 10. The left atrial size is normal. 11. The aortic valve is trileaflet, and appears structurally normal. No aortic stenosis or regurgitat ion. 12. Mild mitral regurgitation is present. 13. Mild tricuspid regurgitation present. 14. There is no evidence of pulmonary hypertension. 15. Trace/mild (physiologic) pulmonic regurgitation. 16. The aortic root size is normal. 17. There is no pericardial effusion. [employer]: Vanesa Diallo RDCS
[2017-07-06 11:53] LABS: Glucose,Whole Blood 111 mg/dL (75-99)
[2017-07-06] MEDS ORDERED: MORPHINE ORAL SOLN 10 MG/5 ML CUP PO PRN (13:30)
--- NOTE | 2017-07-06 17:04 | P.HPIM ---
History of Present Illness H&P Date: 07/06/17 Chief Complaint: chest pain 52 years old female with past medical history of COPD, fibromyalgia, hypertension, osteoarthritis, and yesterday with complaints of chest pain. Chest pain was substernal, radiating to the left side associated with shortness of breath. Patient was evaluated post intervention. She had a cardiac catheterization last night with stenting of her proximal circumflex coronary artery with a drug-eluting stent. Patient denies any chest pain, shortness of breath, abdominal pain, nausea or vomiting. She is resting comfortably in bed on room air. Labs done in the ER is positive for leukocytosis of 12.4, glucose 145, initial troponin of 2.7 which increased to 6.8 and decreased to 4.85. Echo suggestive of ejection fraction 45-50% with basal lateral, basal posterior , mid lateral and mid posterior left ventricle wall motion hypokinetic. No significant pulmonary hypertension or regurgitation seen. EKG done in the ER is positive for significant ST depressions from V2 to V6, leads 1 and lead 2. Repeat EKG pending this morning. Review of Systems Constitutional: Denies chills, Denies fever, Denies lethargy, Denies malaise, Denies poor appetite, Denies weakness, Denies weight loss Eyes: denies decreased vision, denies diplopia, denies discharge, denies pain Ears: deny: decreased hearing Ears, nose, mouth and throat: Denies dental pain, Denies headache, Denies nasal discharge, Denies nose pain Cardiovascular: Denies chest pain, Denies decreased exercise tolerance, Denies edema, Denies high blood pressure, Denies irregular heart beat, Denies palpitations, Denies paroxysmal nocturnal dyspnea, Denies rapid heart beat, Denies shortness of breath Respiratory: Denies congestion, Denies cough, Denies cough with sputum, Denies dyspnea, Denies home oxygen, Denies wheezing Gastrointestinal: Denies abdominal pain, Denies change in bowel habits, Denies coffee ground emesis, Denies early satiety, Denies excessive gas, Denies heartburn, Denies hematemesis, Denies hematochezia, Denies loss of appetite, Denies nausea, Denies vomiting Genitourinary: Denies dysuria, Denies flank pain, Denies kidney stones, Denies menorrhagia, Denies urgency, Denies urinary frequency Musculoskeletal: Denies gait dysfunction, Denies limitation of motion, Denies morning stiffness, Denies muscle cramps Integumentary: Denies rash, Denies wounds, Denies brittle nails, Denies change in hair/nails, Denies darkening of skin Neurological: Denies balance difficulties, Denies change in speech, Denies double vision, Denies gait dysfunction, Denies loss of vision, Denies motor disturbance, Denies numbness, Denies paralysis, Denies paresthesias, Denies seizures Psychiatric: Denies anxiety, Denies depression Endocrine: Denies excessive sweating, Denies excessive thirst, Denies high blood sugars, Denies palpitations Hematologic/Lymphatic: Denies easy bruising, Denies lymphadenopathy Past Medical History Past Medical History: COPD, Fibromyalgia, Hypertension, Osteoarthritis ([place]) History of Any Multi-Drug Resistant Organisms: None Reported Past Surgical History: Appendectomy, Tubal Ligation Additional Past Surgical History / Comment(s): vascular bypass bilateral, Past Anesthesia/Blood Transfusion Reactions: No Reported Reaction Past Psychological History: Depression Smoking Status: Current every day smoker Past Alcohol Use History: None Reported Past Drug Use History: None Reported - Past Family History Father Family Medical History: Cancer, Hypertension, Myocardial Infarction ([place]) Additional Family Medical History / Comment(s): Bone CA Medications and Allergies Home Medications Medication Instructions Recorded Confirmed Type Aspirin 81 mg PO DAILY 04/08/15 07/05/17 History Montelukast [Singulair] 10 mg PO HS 04/08/15 07/05/17 History Ranitidine HCl [Zantac] 150 mg PO DAILY 04/08/15 07/05/17 History Simvastatin [Zocor] 20 mg PO HS 04/08/15 07/05/17 History Glimepiride [Amaryl] 2 mg PO AC-BRKFST 09/15/16 07/05/17 History Cholecalciferol (Vitamin D3) 2,000 unit PO DAILY 07/05/17 07/05/17 History [Vitamin D3] HYDROcodone/APAP 7.5-325MG [[place] 1 tab PO BID PRN 07/05/17 07/05/17 History 7.5-325] Vitamin B Complex 1 cap PO DAILY 07/05/17 07/05/17 History metFORMIN HCL ER [Glucophage Xr] 500 mg PO BID 07/05/17 07/05/17 History predniSONE 10 mg PO DAILY 07/05/17 07/05/17 History sitaGLIPtin [Januvia] 100 mg PO DAILY 07/05/17 07/05/17 History traZODone HCL 300 mg PO HS 07/05/17 07/05/17 History Allergies Allergy/AdvReac Type Severity Reaction Status Date / Time oxycodone Allergy Hallucinati Verified 07/05/17 18:28 ons Physical Exam Vitals: Vital Signs Temp Pulse Resp BP Pulse Ox 07/06/17 16:00 97.9 F 80 16 84/58 94 L 07/06/17 15:00 77 20 91/59 94 L 07/06/17 14:00 74 16 91/65 93 L 07/06/17 13:00 87 19 93/58 94 L 07/06/17 12:30 94 11 L 97/57 95 07/06/17 12:00 98.2 F 105 H 20 103/71 94 L 07/06/17 11:30 91 19 101/58 92 L 07/06/17 11:00 95 18 102/63 90 L 07/06/17 10:30 78 17 109/68 92 L 07/06/17 10:00 71 17 119/73 93 L 07/06/17 09:30 81 18 107/72 95 07/06/17 09:00 70 20 105/77 95 07/06/17 08:30 69 16 103/74 95 07/06/17 08:00 98.0 F 77 20 105/82 95 07/06/17 07:00 74 15 104/72 96 07/06/17 06:45 69 16 93/64 95 07/06/17 06:30 71 14 95/66 94 L 07/06/17 06:15 73 13 88/63 94 L 07/06/17 06:00 70 13 100/73 95 07/06/17 05:45 72 11 L 99/71 95 07/06/17 05:30 71 12 99/73 96 07/06/17 05:20 64 12 99/73 96 07/06/17 05:10 64 12 101/70 96 07/06/17 05:00 66 12 92/67 96 07/06/17 04:50 68 11 L 96 07/06/17 04:40 64 12 92/67 95 07/06/17 04:30 60 11 L 87/68 95 18 04:20 62 12 87/68 95 18 04:10 69 9 L 95/69 96 07/06/17 04:00 97.7 F 62 13 94/71 95 18 03:50 64 12 94/71 95 18 03:40 66 11 L 101/77 95 18 03:30 70 17 96/69 95 07/06/17 03:20 63 12 96/69 95 18 03:10 61 11 L 93/72 96 07/06/17 03:00 67 14 90/73 96 07/06/17 02:50 64 12 90/73 96 07/06/17 02:40 64 11 L 93/67 96 07/06/17 02:30 64 12 92/66 95 07/06/17 02:20 63 11 L 92/66 95 07/06/17 02:10 63 11 L 91/67 95 07/06/17 02:00 65 14 83/72 94 L 07/06/17 01:50 67 13 91 L 07/06/17 01:40 84 49 H 98/68 95 07/06/17 01:30 72 34 H 90/68 94 L 07/06/17 01:20 76 32 H 104/77 94 L 07/06/17 01:10 68 23 96/74 94 L 07/06/17 01:00 68 12 95/75 96 07/06/17 00:50 70 14 90/67 93 L 07/06/17 00:40 64 12 90/69 96 07/06/17 00:30 64 11 L 89/69 96 18 00:20 64 12 92/65 95 18 00:10 64 11 L 81/70 95 18 00:00 66 14 89/66 96 0218 23:50 97.4 F L 67 14 96 18 23:40 69 14 91/72 95 0218 23:30 74 26 H 97 18 23:20 66 12 64/49 97 [id number] 23:10 70 12 73/48 97 [id number] 23:04 72 11 L 73/48 97 0218 23:00 73 12 77/48 96 02/25/18 22:50 77 12 71/53 96 07/05/17 22:40 82 18 73/55 95 07/05/17 22:30 81 18 70/51 97 07/05/17 22:20 82 13 75/59 96 07/05/17 22:10 78 18 73/51 96 07/05/17 22:00 77 12 75/58 95 07/05/17 21:50 82 15 77/57 94 L 07/05/17 21:40 118 H 27 H 64/53 94 L 07/05/17 21:30 84 23 68/53 93 L 07/05/17 21:25 97.8 F 07/05/17 21:20 83 18 61/48 07/05/17 21:15 81 07/05/17 19:13 101 H 18 122/85 96 07/05/17 19:04 104 H 20 131/99 97 07/05/17 18:25 97.9 F 98 20 130/86 95 Intake and Output 07/06/17 07/06/17 07/06/17 06:59 14:59 22:59 Intake Total 3702.268 7366.500 200 Output Total 450 Balance 5073.522 0631.500 200 Intake: IV 1200 900 200 Sodium Chloride 0.9% 1, 700 000 ml @ 100 mls/hr IV . Q10H [facility] Rx#:[id number] Sodium Chloride 0.9% 1, 900 200 000 ml @ 75 mls/hr IV . [id number] [facility] Rx#:[id number] Sodium Chloride 0.9% 500 500 ml @ 500 mls/hr IV .Q1H [facility] Rx#:[id number] Intake, IV Titration 305.375 170.500 Amount Norepinephrin 4 mg-0.9% 305.375 170.500 Ns Pmx 4 mg In 250 ml @ Titrate IV .Q0M [facility] Rx#: [id number] Oral 480 Output: Urine 450 Other: Voiding Method Bedside Commode Bedside Commode Bedside Commode # Voids 0 450 500 Weight 101.5 kg 101.5 kg Patient Weight 07/07/17 06:59 Weight 101.5 kg - Constitutional General appearance: cooperative, no acute distress, obese - EENT Eyes: anicteric sclerae, PERRLA, normal appearance ENT: hearing grossly normal - Neck Neck: no lymphadenopathy, normal ROM, no other, no rigidity, no stridor, no thyromegaly - Respiratory Respiratory: bilateral: CTA, negative: diminished, dullness, rales, rhonchi - Cardiovascular Rhythm: regular Heart sounds: normal: S1, S2 Abnormal Heart Sounds: no systolic murmur, no diastolic murmur, no rub, no S3 Gallop, no S4 Gallop, no click, no other site of cardiac cath appears normal with no signs of hematoma - Gastrointestinal General gastrointestinal: normal bowel sounds, soft - Integumentary Integumentary: no rash - Neurologic Neurologic: CNII-XII intact - Musculoskeletal Musculoskeletal: gait normal, strength equal bilaterally - Psychiatric Psychiatric: A&O x's 3, appropriate affect Results CBC & Chem 7: 07/06/17 06:02 07/06/17 06:02 Labs: Abnormal Lab Results - Last 24 Hours (Table) 07/05/17 07/05/17 07/05/17 Range/Units 18:47 18:47 18:47 WBC (3.8-10.6) k/uL Hct 49.1 H (34.0-46.0) % Neutrophils # (1.3-7.7) k/uL APTT (22.0-30.0) sec Chloride (98-107) mmol/L Glucose 120 H (74-99) mg/dL POC Glucose (mg/dL) (75-99) mg/dL AST 43 H (14-36) U/L CK-MB (CK-2) 5.6 H* (0.0-2.4) ng/mL Troponin I 1.130 H* (0.000-0.034) ng/mL 07/05/17 07/05/17 07/05/17 Range/Units 21:17 22:15 22:15 WBC (3.8-10.6) k/uL Hct (34.0-46.0) % Neutrophils # (1.3-7.7) k/uL APTT 50.0 H (22.0-30.0) sec Chloride (98-107) mmol/L Glucose (74-99) mg/dL POC Glucose (mg/dL) 118 H (75-99) mg/dL AST (14-36) U/L CK-MB (CK-2) (0.0-2.4) ng/mL Troponin I 2.780 H* (0.000-0.034) ng/mL 07/06/17 07/06/17 07/06/17 Range/Units 06:02 06:02 06:02 WBC 12.4 H (3.8-10.6) k/uL Hct (34.0-46.0) % Neutrophils # 7.9 H (1.3-7.7) k/uL APTT (22.0-30.0) sec Chloride 108 H (98-107) mmol/L Glucose 145 H (74-99) mg/dL POC Glucose (mg/dL) (75-99) mg/dL AST (14-36) U/L CK-MB (CK-2) (0.0-2.4) ng/mL Troponin I 6.820 H* (0.000-0.034) ng/mL 07/06/17 07/06/17 07/06/17 Range/Units 08:54 11:51 13:29 WBC (3.8-10.6) k/uL Hct (34.0-46.0) % Neutrophils # (1.3-7.7) k/uL APTT (22.0-30.0) sec Chloride (98-107) mmol/L Glucose (74-99) mg/dL POC Glucose (mg/dL) 131 H 111 H (75-99) mg/dL AST (14-36) U/L CK-MB (CK-2) (0.0-2.4) ng/mL Troponin I 4.850 H* (0.000-0.034) ng/mL Thrombosis Risk Factor Assmnt - DVT/VTE Prophylaxis DVT/VTE Prophylaxis: Pharmacologic Prophylaxis ordered - Choose All That Apply Each Factor Represents 1 point: Acute [place], Age 41-60 years Thrombosis Risk Factor Assessment Total Risk Factor Score: 2 Thrombosis Risk Factor Assessment Level: Low Risk Assessment and Plan Plan: #1 non-ST segment elevated myocardial infarction status post cardiac stenting of left proximal circumflex coronary artery with drug eluting stent. Continue patient on aspirin, Lipitor 80 mg daily, lisinopril 5 mg daily, metoprolol 12.5 mg daily, before meals and 10 mg daily #2 diabetes continue glimepiride 2 mg daily, Tradjenta 5 mg daily #3 insomnia continue trazodone and Ambien prn #4 hypertension continue lisinopril and metoprolol #5 COPD continue DuoNeb and needed for shortness of breath #6 DVT prophylaxis with heparin 5000 every 12 CODE STATUS full code Disposition patient may need 1-2 inpatient nights for monitoring post cardiac catheterization
[2017-07-06 18:36] LABS: Glucose,Whole Blood 80 mg/dL (75-99)
[2017-07-06 18:47] LABS: Hemoglobin A1C 6.5 % (4.0-6.0)
[2017-07-06 20:24] LABS: Glucose,Whole Blood 83 mg/dL (75-99)
--- NOTE | 2017-07-06 20:28 | PN ---
PROGRESS NOTE This lady presented with an acute ischemic syndrome with [id number] TX, underwent stenting of circumflex. She is doing well today. The right radial cath site is quite tender, but the pulse is palpable. Vitals are stable. She was placed on a Levophed drip through the night, but the drip is being weaned aggressively. Pressure is 120/80. Pulse rate is 80 per minute. S1, S2 heard normally but distantly. Lungs are clear. Abdomen and lower extremity exam unchanged. Patient has history of aortobifemoral surgery in the past. I am recommending that we increase activity, wean off Levophed, move her to telemetry later this evening. I reviewed the medications and troponin levels. Echocardiogram is going to be performed today. I have counseled her again regarding the need to quit smoking altogether. We will transfer her to telemetry on the current medical regimen and see how she does. Peak troponin was modestly elevated. I am recommending that we continue current medical regimen. MMODL / IJN: [id number] /
[2017-07-06] MEDS: LISINOPRIL 5 MG TAB PO SCH (21:19)
[2017-07-06] MEDS: traZODone HCL 100 MG TAB PO SCH (21:19)
[2017-07-06] MEDS: MONTELUKAST 10 MG TAB PO SCH (21:19)
[2017-07-06] MEDS: ATORVASTATIN 80 MG TAB PO SCH (21:19)
[2017-07-06] MEDS: HEPARIN SODIUM,PORCINE 5,000 UNIT/ML 1 ML VIAL SQ SCH (21:47)
[2017-07-07 04:46] LABS: Basophils # (A) 0.1 k/uL (0-0.2); Basophils % (A) 1 %; Eosinophils # (A) 0.1 k/uL (0-0.7); Eosinophils % (A) 2 %; HCT 39.2 % (34.0-46.0); HGB 12.9 gm/dL (11.4-16.0); Lymphocytes # (A) 2.1 k/uL (1.0-4.8); Lymphocytes % (A) 27 %; MCH 31.5 pg (25.0-35.0); MCV 95.4 fL (80.0-100.0); Mean Platelet Volume 8.3; Monocytes # (A) 0.4 k/uL (0-1.0); Monocytes % (A) 5 %; Neutrophils # (A) 4.9 k/uL (1.3-7.7); Neutrophils % (A) 64 %; Platelet Count 133 k/uL (150-450); RDW 13.1 % (11.5-15.5); WBC 7.7 k/uL (3.8-10.6)
[2017-07-07] MEDS: SODIUM CHLORIDE 0.9% 1,000 ML IV SCH (05:05)
[2017-07-07] MEDS: HYDROcodone/APAP 7.5-325MG 1 EACH TAB PO PRN ×2 (05:48→15:05)
[2017-07-07 06:00] LABS: Anion Gap 7 mmol/L; Blood Urea Nitrogen 8 mg/dL (7-17); Calcium 8.6 mg/dL (8.4-10.2); Carbon Dioxide 24 mmol/L (22-30); Chloride 109 mmol/L (98-107); Glucose 89 mg/dL (74-99); Potassium 3.8 mmol/L (3.5-5.1); Sodium 140 mmol/L (137-145)
[2017-07-07 06:55] LABS: Glucose,Whole Blood 99 mg/dL (75-99)
[2017-07-07] MEDS: GLIMEPIRIDE 2 MG TAB PO SCH (07:56)
[2017-07-07] MEDS: PRASUGREL 10 MG TAB PO SCH (08:00)
[2017-07-07] MEDS: HEPARIN SODIUM,PORCINE 5,000 UNIT/ML 1 ML VIAL SQ SCH ×3 (08:00→21:58)
[2017-07-07] MEDS: CHOLECALCIFEROL 1,000 UNIT TAB PO SCH (08:01)
[2017-07-07] MEDS: ASPIRIN 81 MG PO SCH (08:01)
[2017-07-07] MEDS: B COMPLEX-VIT C-VIT E-ZINC 1 EACH TAB PO SCH (08:01)
[2017-07-07] MEDS: FAMOTIDINE 20 MG TAB PO SCH (08:01)
[2017-07-07] MEDS: LINAGLIPTIN 5 MG TABLET PO SCH (08:02)
[2017-07-07] MEDS: METOPROLOL TARTRATE 12.5 MG TAB PO SCH (08:02)
--- NOTE | 2017-07-07 09:03 | P.PN ---
Subjective Progress Note Date: 07/07/17 Principal diagnosis: Chest pain Progress note dated 07/07/2017 This is a 52-year-old female status post ST segment elevation myocardial infarction. Yesterday, she was on relatively higher doses of norepinephrine for blood pressure support. Currently gets been weaned off. She is on a saline IV at 75 mL an hour. She is on nasal O2 at 2 L. She seemed be doing reasonably well. She does have a history of osteoarthritis fibromyalgia COPD hypertension diabetes hyperlipidemia. The patient did go to the catheterization laboratory and had a stent placed to the proximal circumflex coronary artery. Labs x-rays a medications are reviewed. She is feeling a bit better today. Certainly not at baseline. Objective - Vital Signs Vital signs: Vital Signs Temp 97.9 F 07/07/17 07:58 Pulse 96 07/07/17 07:58 Resp 22 07/07/17 07:58 BP 106/65 07/07/17 07:58 Pulse Ox 94 L 07/07/17 07:58 Intake & Output 07/06/17 07/07/17 07/07/17 18:59 06:59 18:59 Intake Total 1750.500 750 Output Total 1400 Balance 1750.500 -650 Weight 101.5 kg 98.7 kg Intake: IV 1100 750 Sodium Chloride 0.9% 1, 1100 000 ml @ 75 mls/hr IV . [id number] [facility] Rx#:[id number] Sodium Chloride 0.9% 1, 750 000 ml @ 75 mls/hr IV . [id number] [facility] Rx#:[id number] Intake, IV Titration 170.500 Amount Norepinephrin 4 mg-0.9% 170.500 Ns Pmx 4 mg In 250 ml @ Titrate IV .Q0M [facility] Rx#: [id number] Oral 480 Output: Urine 1400 Other: Voiding Method Bedside Commode Bedside Commode # Voids 500 - Exam No acute distress, oriented 3. Nasal O2 in place. HEENT examination is grossly unremarkable. Mucous membranes are moist. No oral lesions. Neck supple. Full range of motion. No adenopathy thyromegaly or neck vein distention. Cardiovascular examination reveals regular rhythm rate. S1-S2 normal. No S3 or S4. No discernible murmur noted. Lungs reveal clear breath sounds. Her sounds are equal bilaterally. No adventitious lung sounds including wheezes rhonchi or crackles. Abdomen soft bowel sounds are heard. No masses or tenderness. Extremities are intact. No cyanosis clubbing or edema. Skin is without rash or lesion. Neurologic examination is brief but nonfocal. - Labs CBC & Chem 7: 07/07/17 03:57 07/07/17 05:27 Labs: Abnormal Lab Results - Last 24 Hours (Table) 07/06/17 07/06/17 07/06/17 Range/Units 06:02 11:51 13:29 Plt Count (150-450) k/uL Chloride (98-107) mmol/L POC Glucose (mg/dL) 111 H (75-99) mg/dL Hemoglobin A1c 6.5 H (4.0-6.0) % Troponin I 4.850 H* (0.000-0.034) ng/mL 07/07/17 07/07/17 Range/Units 03:57 05:27 Plt Count 133 L (150-450) k/uL Chloride 109 H (98-107) mmol/L POC Glucose (mg/dL) (75-99) mg/dL Hemoglobin A1c (4.0-6.0) % Troponin I (0.000-0.034) ng/mL Assessment and Plan Assessment: Assessment ST segment elevation myocardial infarction Hypotension, resolved, previously on norepinephrine. Status post stent placement in the proximal circumflex coronary artery History of hypertension History of hyperlipidemia History of diabetes History of asthma/COPD History of fibromyalgia and degenerative joint disease Plan: Plan dated 07/06/2017 The patient looks pretty good. I believe the norepinephrine could be weaned down or off. Additional recommendations and suggestions are forthcoming. Labs x-rays a medications are all reviewed. Additional recommendations are made. We 'll continue to follow. Prognosis is guarded. Plan dated 07/07/2017 Currently, the patient's norepinephrine was weaned off. Her blood pressures much more stable. From the respiratory standpoint she seemed be doing reasonably well. She remains on O2 at 2 L by nasal cannula. She denies any cough wheezing shortness of breath phlegm production or hemoptysis. She denies any chest pain or chest discomfort or palpitations for that matter. No nausea vomiting or diarrhea. She seemed be doing a lot better. She could possibly leave the unit today. We'll leave that up to cardiology. From my perspective, respiratory status is stable. Labs x-rays a medications are all reviewed. Critical care time 31 minutes Time with Patient: Greater than 30
--- NOTE | 2017-07-07 12:29 | PN ---
PROGRESS NOTE This lady suffered from a posterior MO with tight lesion in the circumflex, which was stented. Postprocedure, she is doing well. Her right radial site is clean and dry with some tenderness. Pulse is palpable. S1, S2 heard normally. Lungs are clear. Abdomen and lower extremity exam is unchanged. Plan is to increase activity, move her to telemetry with possible discharge tomorrow. She will continue current medical regimen, which has been reviewed. Echo revealed fair systolic function with ejection fraction in the 45% range with apical lateral hypokinesia. Discussed my thoughts in detail with the patient. MMODL / IJN: [id number] /
[2017-07-07] MEDS: DOCUSATE 100 MG CAP PO SCH (17:44)
[2017-07-07] MEDS: MONTELUKAST 10 MG TAB PO SCH (19:37)
[2017-07-07] MEDS: traZODone HCL 100 MG TAB PO SCH (19:37)
[2017-07-07] MEDS: LISINOPRIL 5 MG TAB PO SCH (19:38)
[2017-07-07] MEDS: ATORVASTATIN 80 MG TAB PO SCH (19:38)
[2017-07-08 04:42] LABS: Basophils % (A) 0 %; Eosinophils # (A) 0.2 k/uL (0-0.7); Eosinophils % (A) 2 %; HCT 37.8 % (34.0-46.0); HGB 12.4 gm/dL (11.4-16.0); Lymphocytes # (A) 2.5 k/uL (1.0-4.8); Lymphocytes % (A) 33 %; MCH 31.6 pg (25.0-35.0); MCHC 32.8 g/dL (31.0-37.0); MCV 96.3 fL (80.0-100.0); Mean Platelet Volume 8.3; Monocytes # (A) 0.4 k/uL (0-1.0); Monocytes % (A) 5 %; Neutrophils # (A) 4.5 k/uL (1.3-7.7); Neutrophils % (A) 58 %; Platelet Count 179 k/uL (150-450); RBC 3.93 m/uL (3.80-5.40); RDW 13.1 % (11.5-15.5); WBC 7.7 k/uL (3.8-10.6)
[2017-07-08 05:04] LABS: Anion Gap 6 mmol/L; Blood Urea Nitrogen 10 mg/dL (7-17); Calcium 8.6 mg/dL (8.4-10.2); Carbon Dioxide 28 mmol/L (22-30); Chloride 109 mmol/L (98-107); Glucose 99 mg/dL (74-99); Sodium 143 mmol/L (137-145)
[2017-07-08] MEDS: HYDROcodone/APAP 7.5-325MG 1 EACH TAB PO PRN (06:41)
[2017-07-08 06:55] LABS: Glucose,Whole Blood 96 mg/dL (75-99)
[2017-07-08] MEDS: CHOLECALCIFEROL 1,000 UNIT TAB PO SCH (08:25)
[2017-07-08] MEDS: FAMOTIDINE 20 MG TAB PO SCH (08:25)
[2017-07-08] MEDS: B COMPLEX-VIT C-VIT E-ZINC 1 EACH TAB PO SCH (08:25)
[2017-07-08] MEDS: ASPIRIN 81 MG PO SCH (08:25)
[2017-07-08] MEDS: DOCUSATE 100 MG CAP PO SCH (08:25)
[2017-07-08] MEDS: METOPROLOL TARTRATE 12.5 MG TAB PO SCH (08:26)
[2017-07-08] MEDS: PRASUGREL 10 MG TAB PO SCH (08:26)
[2017-07-08] MEDS: GLIMEPIRIDE 2 MG TAB PO SCH (08:26)
[2017-07-08] MEDS: HEPARIN SODIUM,PORCINE 5,000 UNIT/ML 1 ML VIAL SQ SCH (08:26)
[2017-07-08] MEDS: LINAGLIPTIN 5 MG TABLET PO SCH (08:26)
[2017-07-08 08:28] VITALS: RESP 20
--- NOTE | 2017-07-08 08:36 | P.PN ---
Subjective Progress Note Date: 07/08/17 Principal diagnosis: Chest pain Progress note dated 07/07/2017 This is a 52-year-old female status post ST segment elevation myocardial infarction. Yesterday, she was on relatively higher doses of norepinephrine for blood pressure support. Currently gets been weaned off. She is on a saline IV at 75 mL an hour. She is on nasal O2 at 2 L. She seemed be doing reasonably well. She does have a history of osteoarthritis fibromyalgia COPD hypertension diabetes hyperlipidemia. The patient did go to the catheterization laboratory and had a stent placed to the proximal circumflex coronary artery. Labs x-rays a medications are reviewed. She is feeling a bit better today. Certainly not at baseline. Progress note dated 07/08/2017 This is a 52-year-old female status post ST segment elevation myocardial infarction. The patient was on norepinephrine but that has been weaned off. She seems be relatively stable now. His been weaned down to room air. The patient's current basic IV of saline at 75 mL an hour. She has a history of DJD , fibromyalgia, mild COPD, hypertension, diabetes and hyperlipidemia. When she went to the catheterization laboratory, she had a stent placed in her proximal circumflex coronary artery. Labs medications and x-rays are all reviewed. She is feeling well. Not having any chest pain chest discomfort or palpitations. Objective - Vital Signs Vital signs: Vital Signs Temp 98.1 F 07/08/17 08:00 Pulse 63 07/08/17 08:28 Resp 20 07/08/17 08:00 BP 91/65 07/08/17 08:00 Pulse Ox 94 L 07/08/17 08:00 Intake & Output 07/07/17 07/08/17 07/08/17 18:59 06:59 18:59 Intake Total 0 Balance 0 Weight 98.7 kg 99 kg Intake: IV 0 Sodium Chloride 0.9% 1, 0 000 ml @ 75 mls/hr IV . [id number] [facility] Rx#:[id number] Other: Voiding Method Bedside Commode Toilet Bedside Commode # Voids 1 0 - Exam No acute distress, oriented 3. Nasal O2 in place. HEENT examination is grossly unremarkable. Mucous membranes are moist. No oral lesions. Neck supple. Full range of motion. No adenopathy thyromegaly or neck vein distention. Cardiovascular examination reveals regular rhythm rate. S1-S2 normal. No S3 or S4. No discernible murmur noted. Lungs reveal clear breath sounds. Her sounds are equal bilaterally. No adventitious lung sounds including wheezes rhonchi or crackles. Abdomen soft bowel sounds are heard. No masses or tenderness. Extremities are intact. No cyanosis clubbing or edema. Skin is without rash or lesion. Neurologic examination is brief but nonfocal. - Labs CBC & Chem 7: 07/08/17 04:14 07/08/17 04:14 Labs: Abnormal Lab Results - Last 24 Hours (Table) 07/08/17 Range/Units 04:14 Chloride 109 H (98-107) mmol/L Assessment and Plan Assessment: Assessment ST segment elevation myocardial infarction Hypotension, resolved, previously on norepinephrine. Status post stent placement in the proximal circumflex coronary artery History of hypertension History of hyperlipidemia History of diabetes History of asthma/COPD History of fibromyalgia and degenerative joint disease Plan: Plan dated 07/06/2017 The patient looks pretty good. I believe the norepinephrine could be weaned down or off. Additional recommendations and suggestions are forthcoming. Labs x-rays a medications are all reviewed. Additional recommendations are made. We 'll continue to follow. Prognosis is guarded. Plan dated 07/07/2017 Currently, the patient's norepinephrine was weaned off. Her blood pressures much more stable. From the respiratory standpoint she seemed be doing reasonably well. She remains on O2 at 2 L by nasal cannula. She denies any cough wheezing shortness of breath phlegm production or hemoptysis. She denies any chest pain or chest discomfort or palpitations for that matter. No nausea vomiting or diarrhea. She seemed be doing a lot better. She could possibly leave the unit today. We'll leave that up to cardiology. From my perspective, respiratory status is stable. Labs x-rays a medications are all reviewed. Critical care time 31 minutes Plan dated 07/08/2017 The patient has made nice progress. The patient has been weaned off of oxygen. She seems be relatively stable. Denies any coughing wheezing shortness of breath phlegm production or hemoptysis. No chest pain or chest discomfort. No nausea vomiting diarrhea. No palpitations. Can be transferred out of the ICU. I believe she is a selective overflow. Has made nice progress here in the ICU. Time with Patient: Less than 30
[2017-07-08 09:01] VITALS: PULSE 58
[2017-07-08] MEDS ORDERED: NICOTINE 14MG/24HR PATCH TRANSDERM SCH (09:30)
--- NOTE | 2017-07-08 09:57 | PN ---
PROGRESS NOTE This is a 52-year-old lady who underwent stenting of circumflex with a non-ST elevation MD. She is doing well today. Denies chest pain or shortness of breath. Vitals are stable. Blood pressure is somewhat low. I am discontinuing lisinopril. Will decrease the metoprolol tartrate 12.5 mg in the morning only. Vitals are stable. S1, S2 heard normally. Lungs are clear. Abdomen and lower extremity exam unchanged. Patient will be discharged today and will follow up with Dr. Henderson in one week. MMODL / IJN: [id number] /
--- NOTE | 2017-07-08 11:36 | P.PN ---
Subjective Progress Note Date: 07/07/17 52 years old female with past medical history of COPD, fibromyalgia, hypertension, osteoarthritis, and yesterday with complaints of chest pain. Chest pain was substernal, radiating to the left side associated with shortness of breath. Patient was evaluated post intervention. She had a cardiac catheterization last night with stenting of her proximal circumflex coronary artery with a drug-eluting stent. Patient denies any chest pain, shortness of breath, abdominal pain, nausea or vomiting. She is resting comfortably in bed on room air. Labs done in the ER is positive for leukocytosis of 12.4, glucose 145, initial troponin of 2.7 which increased to 6.8 and decreased to 4.85. Echo suggestive of ejection fraction 45-50% with basal lateral, basal posterior , mid lateral and mid posterior left ventricle wall motion hypokinetic. No significant pulmonary hypertension or regurgitation seen. EKG done in the ER is positive for significant ST depressions from V2 to V6, leads 1 and lead 2. Repeat EKG pending this morning. 07/07: Patient has been weaned off Levophed. Echocardiogram reveals EF 45-50%, mild concentric left ventricular hypertrophy, LV wall hypokinectic, mild MR, mild TR, no pulmonary hypertension. Patient to be transferred out of ICU. Patient denies having any chest pain or numbness to her left arm. She has not had a bowel movement. Pulse ox is 97% on room air. Objective - Vital Signs Vital signs: Vital Signs Temp 97.9 F 07/07/17 07:58 Pulse 96 07/07/17 07:58 Resp 22 07/07/17 08:00 BP 106/65 07/07/17 07:58 Pulse Ox 94 L 07/07/17 07:58 Intake & Output 07/06/17 07/07/17 07/07/17 18:59 06:59 18:59 Intake Total 1750.500 750 Output Total 1400 Balance 1750.500 -650 Weight 101.5 kg 98.7 kg 98.7 kg Intake: IV 1100 750 Sodium Chloride 0.9% 1, 1100 000 ml @ 75 mls/hr IV . [id number] [facility] Rx#:[id number] Sodium Chloride 0.9% 1, 750 000 ml @ 75 mls/hr IV . [id number] [facility] Rx#:[id number] Intake, IV Titration 170.500 Amount Norepinephrin 4 mg-0.9% 170.500 Ns Pmx 4 mg In 250 ml @ Titrate IV .Q0M [facility] Rx#: [id number] Oral 480 Output: Urine 1400 Other: Voiding Method Bedside Commode Bedside Commode Bedside Commode # Voids 500 - Exam General appearance: cooperative, no acute distress, obese - EENT Eyes: anicteric sclerae, PERRLA, normal appearance ENT: hearing grossly normal - Neck Neck: no lymphadenopathy, normal ROM, no other, no rigidity, no stridor, no thyromegaly - Respiratory Respiratory: bilateral: CTA, negative: diminished, dullness, rales, rhonchi - Cardiovascular Rhythm: regular Heart sounds: normal: S1, S2 Abnormal Heart Sounds: no systolic murmur, no diastolic murmur, no rub, no S3 Gallop, no S4 Gallop, no click, no other site of cardiac cath appears normal with no signs of hematoma - Gastrointestinal General gastrointestinal: normal bowel sounds, soft - Integumentary Integumentary: no rash - Neurologic Neurologic: CNII-XII intact - Musculoskeletal Musculoskeletal: gait normal, strength equal bilaterally - Psychiatric Psychiatric: A&O x's 3, appropriate affect - Labs CBC & Chem 7: 07/08/17 04:14 07/08/17 04:14 Labs: Abnormal Lab Results - Last 24 Hours (Table) 07/06/17 07/06/17 07/06/17 Range/Units 06:02 11:51 13:29 Plt Count (150-450) k/uL Chloride (98-107) mmol/L POC Glucose (mg/dL) 111 H (75-99) mg/dL Hemoglobin A1c 6.5 H (4.0-6.0) % Troponin I 4.850 H* (0.000-0.034) ng/mL 07/07/17 07/07/17 Range/Units 03:57 05:27 Plt Count 133 L (150-450) k/uL Chloride 109 H (98-107) mmol/L POC Glucose (mg/dL) (75-99) mg/dL Hemoglobin A1c (4.0-6.0) % Troponin I (0.000-0.034) ng/mL Assessment and Plan Plan: 1 non-ST segment elevated myocardial infarction status post cardiac stenting of left proximal circumflex coronary artery with drug eluting stent. Continue patient on aspirin, Lipitor 80 mg daily, lisinopril 5 mg daily, metoprolol 12.5 mg daily, before meals and 10 mg daily #2 diabetes continue glimepiride 2 mg daily, Tradjenta 5 mg daily #3 insomnia continue trazodone and Ambien prn #4 hypertension continue lisinopril and metoprolol #5 COPD continue DuoNeb and needed for shortness of breath #6 DVT prophylaxis with heparin 5000 every 12 CODE STATUS full code Discharge plan: most likely return home Impression and plan of care have been directed as dictated by the signing physician. Alayna Acosta nurse practitioner acting as scribe for signing physician.
[2017-07-08 11:57] VITALS: BMI 37.4
[2017-07-08 12:34] LABS: Glucose,Whole Blood 87 mg/dL (75-99)
[2017-07-08 14:20] VITALS: BP 110/72; TEMP 98.2
--- NOTE | 2017-07-08 14:23 | P.DS ---
Providers Date of admission: 07/05/17 19:01 Expected date of discharge: 07/08/17 Attending physician: Marry Claudio Consults: 07/05/17 19:37 Consult Physician Stat Consulting Provider: Clary Ledesma Consult Reason/Comments: post cath Do you want consulting provider notified?: Yes Consult Physician Stat Consulting Provider: Garrett Edgar Consult Reason/Comments: stemi Do you want consulting provider notified?: Yes 07/05/17 20:55 Consult Physician Routine Consulting Provider: [facility] Consult Reason/Comments: Post Interventional patient Do you want consulting provider notified?: Already Contacted Primary care physician: Aryan Grimm [facility] Course: 52 years old female with past medical history of COPD, fibromyalgia, hypertension, osteoarthritis, and yesterday with complaints of chest pain. Chest pain was substernal, radiating to the left side associated with shortness of breath. Patient was evaluated post intervention. She had a cardiac catheterization last night with stenting of her proximal circumflex coronary artery with a drug-eluting stent. Patient denies any chest pain, shortness of breath, abdominal pain, nausea or vomiting. She is resting comfortably in bed on room air. Labs done in the ER is positive for leukocytosis of 12.4, glucose 145, initial troponin of 2.7 which increased to 6.8 and decreased to 4.85. Echo suggestive of ejection fraction 45-50% with basal lateral, basal posterior , mid lateral and mid posterior left ventricle wall motion hypokinetic. No significant pulmonary hypertension or regurgitation seen. EKG done in the ER is positive for significant ST depressions from V2 to V6, leads 1 and lead 2. Repeat EKG pending this morning. 07/07: Patient has been weaned off Levophed. Echocardiogram reveals EF 45-50%, mild concentric left ventricular hypertrophy, LV wall hypokinectic, mild MR, mild TR, no pulmonary hypertension. Patient to be transferred out of ICU. Patient denies having any chest pain or numbness to her left arm. She has not had a bowel movement. Pulse ox is 97% on room air. 07/08: Patient remains in intensive care unit awaiting a bed on selective care. Subsequently, patient has been cleared for discharge by cardiology with planned follow-up with Dr. Henderson in one week. Patient will be resumed on home meds and cardiology has sent through new meds. She will be discharged home today in stable condition. Discharge diagnoses: 1 non-ST segment elevated myocardial infarction status post cardiac stenting of left proximal circumflex coronary artery with drug eluting stent. 2 diabetes mellitus type II 3 insomnia 4 hypertension 5 COPD without exacerbation Discharge plan: home Impression and plan of care have been directed as dictated by the signing physician. Alayna Acosta nurse practitioner acting as scribe for signing physician Patient Condition at Discharge: Good Plan - Discharge Summary Discharge Rx Participant: Yes New Discharge Prescriptions: New Atorvastatin [Lipitor] 80 mg PO HS #30 tab Metoprolol Tartrate [Lopressor] 12.5 mg PO DAILY #30 tab Nicotine 14Mg/24Hr Patch [Habitrol] 1 patch TRANSDERM DAILY #30 patch Nitroglycerin Sl Tabs [Nitrostat] 0.4 mg SUBLINGUAL Q5M PRN #25 tab PRN Reason: Chest Pain Prasugrel [Effient] 10 mg PO DAILY #30 tab Continue Ranitidine HCl [Zantac] 150 mg PO DAILY Montelukast [Singulair] 10 mg PO HS Aspirin 81 mg PO DAILY Glimepiride [Amaryl] 2 mg PO AC-BRKFST Cholecalciferol (Vitamin D3) [Vitamin D3] 2,000 unit PO DAILY HYDROcodone/APAP 7.5-325MG [[place] 7.5-325] 1 tab PO BID PRN PRN Reason: Pain traZODone HCL 300 mg PO HS sitaGLIPtin [Januvia] 100 mg PO DAILY metFORMIN HCL ER [Glucophage Xr] 500 mg PO BID Vitamin B Complex 1 cap PO DAILY Discontinued Simvastatin [Zocor] 20 mg PO HS predniSONE 10 mg PO DAILY Discharge Medication List Aspirin 81 mg PO DAILY 04/08/15 [History] Montelukast [Singulair] 10 mg PO HS 04/08/15 [History] Ranitidine HCl [Zantac] 150 mg PO DAILY 04/08/15 [History] Glimepiride [Amaryl] 2 mg PO AC-BRKFST 09/15/16 [History] Cholecalciferol (Vitamin D3) [Vitamin D3] 2,000 unit PO DAILY 07/05/17 [History] HYDROcodone/APAP 7.5-325MG [[place] 7.5-325] 1 tab PO BID PRN 07/05/17 [History] Vitamin B Complex 1 cap PO DAILY 07/05/17 [History] metFORMIN HCL ER [Glucophage Xr] 500 mg PO BID 07/05/17 [History] sitaGLIPtin [Januvia] 100 mg PO DAILY 07/05/17 [History] traZODone HCL 300 mg PO HS 07/05/17 [History] Atorvastatin [Lipitor] 80 mg PO HS #30 tab 07/08/17 [Rx] Metoprolol Tartrate [Lopressor] 12.5 mg PO DAILY #30 tab 07/08/17 [Rx] Nicotine 14Mg/24Hr Patch [Habitrol] 1 patch TRANSDERM DAILY #30 patch 07/08/17 [ Rx] Nitroglycerin Sl Tabs [Nitrostat] 0.4 mg SUBLINGUAL Q5M PRN #25 tab 07/08/17 [Rx ] Prasugrel [Effient] 10 mg PO DAILY #30 tab 07/08/17 [Rx] Follow up Appointment(s)/Referral(s): Aryan Noble MD [Primary Care Provider] - 1 Week Marcelo Henderson MD [STAFF PHYSICIAN] - 1 Week [facility] Visiting Nurse, [NON-STAFF] - Discharge Disposition: HOME WITH HOME HEALTH SERVICES
== END 2017-07-08 17:04 | disposition home health service (06) | DRG 247 ==
LOC: EC 18:22 → 6ICU 19:01
PROVIDERS: ADMIT Family Medicine; ATTEND Family Medicine
PROC: B2111ZZ Fluoroscopy of Multiple Coronary Arteries using Low Osmolar Contrast (ICD-10-PCS; 2017-07-05)
PROC: 3E03317 Introduction of Other Thrombolytic into Peripheral Vein, Percutaneous Approach (ICD-10-PCS; 2017-07-05)
PROC: 027034Z Dilation of Coronary Artery, One Artery with Drug-eluting Intraluminal Device, Percutaneous Approach (ICD-10-PCS; principal; 2017-07-05 19:22)
PROC: 4A023N7 Measurement of Cardiac Sampling and Pressure, Left Heart, Percutaneous Approach (ICD-10-PCS; 2017-07-05 19:22)
DX: I21.4 Non-ST elevation (NSTEMI) myocardial infarction (principal); E11.51 Type 2 diabetes mellitus with diabetic peripheral angiopathy without gangrene; I11.9 Hypertensive heart disease without heart failure; I95.9 Hypotension, unspecified; D72.829 Elevated white blood cell count, unspecified; I25.10 Atherosclerotic heart disease of native coronary artery without angina pectoris; E66.9 Obesity, unspecified; E78.5 Hyperlipidemia, unspecified; F17.210 Nicotine dependence, cigarettes, uncomplicated; G47.00 Insomnia, unspecified; J44.9 Chronic obstructive pulmonary disease, unspecified; M79.7 Fibromyalgia; M19.91 Primary osteoarthritis, unspecified site; F32.9 Major depressive disorder, single episode, unspecified; Z68.37 Body mass index [BMI] 37.0-37.9, adult; Z79.82 Long term (current) use of aspirin; Z79.84 Long term (current) use of oral hypoglycemic drugs; Z79.899 Other long term (current) drug therapy; Z88.5 Allergy status to narcotic agent; Z82.49 Family history of ischemic heart disease and other diseases of the circulatory system
CPT/HCPCS: 36415; 71046; 80048; 80053; 82550; 82553; 83036; 83735; 84484; 85025; 85379; 85610; 85730; 93005; 93306; 93458; 96365; 96375; 96376; 99291

== ENCOUNTER → 2018-08-16 | Outpatient (CLI) | payer OTHER ==
--- NOTE | 2018-08-16 16:00 | BD ---
EXAMINATION TYPE: Axial Bone Density DATE OF EXAM: 08/16/2018 COMPARISON: NONE CLINICAL HISTORY: Menopausal, N95.1 Height: 5'3 Weight: 206 FRAX RISK QUESTIONS: History of Fracture in Adulthood: y Secondary Osteoporosis: 3. Menopause before 45: y Rheumatoid Arthritis: y Current Tobacco Use: y RISK FACTORS HISTORY OF: Postmenopausal woman: y MEDICATIONS: Additional Medications: blood pressure, heart, type 2 diabetes, cholesterol, pain nd sleep Additional History: EXAM MEASUREMENTS: Bone mineral densitometry was performed using the N42 System. Bone mineral density as measured about the Lumbar spine is: ----- L1-L4(G/cm2): 1.163 T Score Values are as follows: ----- L2: -1.3 ----- L3: 0.0 ----- L4: 0.5 ----- L1-L4:-0.1 Bone mineral density about the R hip (g/cm2): 1.177 Bone mineral density about the L hip (g/cm2): 1.125 T Score values are as follows: -----R Neck: 1.0 -----L Neck:0.6 -----R Total: 1.8 -----L Total: 1.4 IMPRESSION: Osteopenia (T Score between -2.5 and -1). There is slightly increased risk of fracture and the patient may be considered for treatment. Re-Screen 2-5 years. NOTE: T-SCORE=SD OF THE YOUNG ADULT MEAN.
--- NOTE | 2018-08-17 09:23 | MM ---
Reason for exam: screening (asymptomatic). Last mammogram was performed 2 years and 10 months ago. History: Family history of breast cancer in paternal aunt at age 55. Excisional biopsy of the right breast, October 18, 2015. Took hormonal contraceptives for 20 years. Physical Findings: A clinical breast exam by your physician is recommended on an annual basis and results should be correlated with mammographic findings. MG Screening Mammo w CAD Bilateral CC and MLO view(s) were taken. Prior study comparison: October 05, 2015, mammogram. October 01, 2015, mammogram. July 10, 2014, mammogram. The breast tissue is heterogeneously dense. This may lower the sensitivity of mammography. Finding: There are typically benign calcifications in both breasts. Calcified traumatic oil cyst right breast. No significant changes in finding since October 05, 2015, October 01, 2015, and July 10, 2014. ASSESSMENT: Benign, BI-RAD 2 RECOMMENDATION: Routine screening mammogram of both breasts in 1 year.
== END | disposition home or self-care (01) ==
LOC: RADMAMWWP 14:23
PROVIDERS: ATTEND Family Medicine
DX: Z12.31 Encounter for screening mammogram for malignant neoplasm of breast (principal); M85.88 Other specified disorders of bone density and structure, other site
CPT/HCPCS: 77067; 77080

== ENCOUNTER 2018-09-14 16:40 | Emergency (ER) | payer OTHER ==
[2018-09-14] MEDS ORDERED: DEXAMETHASONE 4 MG TAB PO STA (17:44)
[2018-09-14] MEDS ORDERED: Acetaminophen-Codeine 300-30mg TAB PO STA (17:44)
[2018-09-14] MEDS ORDERED: KETOROLAC 60 MG/2 ML VIAL IM STA (17:44)
[2018-09-14] MEDS ORDERED: ACET/COD 300 MG/30 MG STARTER PACK 6 TAB BTL PO STA (19:16)
--- NOTE | 2018-09-14 19:17 | CT ---
EXAMINATION TYPE: CT abdomen pelvis wo con DATE OF EXAM: 09/14/2018 COMPARISON: None HISTORY: Back, left leg and hip pain x [address] DLP: 775.3 mGycm Automated exposure control for dose reduction was used. TECHNIQUE: Helical acquisition of images was performed from the lung bases through the pelvis. FINDINGS: Within the limitations of noncontrast CT the following observations are made: LUNG BASES: No acute findings. Coronary calcifications noted. LIVER/GB: No significant abnormality is appreciated. PANCREAS: No significant abnormality is seen. SPLEEN: No significant abnormality is seen. ADRENALS: No significant abnormality is seen. KIDNEYS: No hydronephrosis or hydroureter. Bilateral nonobstructing renal calcifications are noted. B ilateral rounded low-attenuation smoothly marginated findings are also noted, measuring up to 1.5 cm diameter, likely renal cysts which can be proved with follow-up renal ultrasound. FREE AIR: No free air is visualized RETROPERITONEAL ADENOPATHY: None visualized REPRODUCTIVE ORGANS: No significant abnormality is seen URINARY BLADDER: No significant abnormality is seen. PELVIC ADENOPATHY: None visualized. OSSEOUS STRUCTURES: No significant abnormality is seen. BOWEL: No significant abnormality is seen. OTHER: Nonaneurysmal atherosclerotic intimal calcifications are seen throughout the visualized arteri al anatomy, including the coronary arteries. IMPRESSION: NO ACUTE PROCESS; NO CT CORRELATE FOR THE PATIENT'S SYMPTOMS.
--- NOTE | 2018-09-14 19:19 | ED ---
Back Pain HPI - General Chief Complaint: Extremity Problem,Nontraumatic Stated Complaint: Back and hip pain Time Seen by Provider: 09/14/18 16:57 Source: patient, RN notes reviewed, old records reviewed Limitations: no limitations - History of Present Illness Initial Comments: This is a 53-year-old female the ER for evaluation. Patient resents today for evaluation of back pain. No injury noted, back pain is mainly located in her lower back left hip area left hip in the left leg. No neurological complaint, able to ambulate without difficulty no loss of bowel or bladder denies trauma or fever. No prior history of similar complaints or pain. MD Complaint: back pain -: days(s) Similar Symptoms Previously: No Place: home Radiation: buttocks, left leg Severity: moderate Severity scale (1-10): 4 Quality: dull, aching Consistency: intermittent Improves With: immobilization Worsens With: movement Context: unknown Associated Symptoms: denies other symptoms - Related Data Home Medications Medication Instructions Recorded Confirmed Aspirin 81 mg PO DAILY 04/08/15 09/14/18 Montelukast [Singulair] 10 mg PO HS 04/08/15 09/14/18 Ranitidine HCl [Zantac] 150 mg PO DAILY 04/08/15 09/14/18 Glimepiride [Amaryl] 2 mg PO AC-BRKFST 09/15/16 09/14/18 Cholecalciferol (Vitamin D3) 2,000 unit PO DAILY 07/05/17 09/14/18 [Vitamin D3] HYDROcodone/APAP 7.5-325MG [[place] 1 tab PO BID PRN 07/05/17 09/14/18 7.5-325] Vitamin B Complex 1 cap PO DAILY 07/05/17 09/14/18 metFORMIN HCL ER [Glucophage Xr] 500 mg PO BID 07/05/17 09/14/18 Clopidogrel Bisulfate [Plavix] 75 mg PO DAILY 09/14/18 09/14/18 sitaGLIPtin [Januvia] 50 mg PO DAILY 09/14/18 09/14/18 Previous Rx's Medication Instructions Recorded Atorvastatin [Lipitor] 80 mg PO HS #30 tab 07/08/17 Metoprolol Tartrate [Lopressor] 12.5 mg PO DAILY #30 tab 07/08/17 Nitroglycerin Sl Tabs [Nitrostat] 0.4 mg SUBLINGUAL Q5M PRN #25 tab 07/08/17 Naproxen [Naprosyn] 500 mg PO Q12HR PRN #30 tab 09/14/18 Allergies Allergy/AdvReac Type Severity Reaction Status Date / Time oxycodone Allergy Hallucinati Verified 09/14/18 16:48 ons tomato Allergy Rash/Hives Verified 09/14/18 17:01 Review of Systems ROS Statement: Those systems with pertinent positive or pertinent negative responses have been documented in the HPI. ROS Other: All systems not noted in ROS Statement are negative. Past Medical History Past Medical History: COPD, Fibromyalgia, Hypertension, Osteoarthritis (OA) History of Any Multi-Drug Resistant Organisms: None Reported Past Surgical History: Appendectomy, Tubal Ligation Additional Past Surgical History / Comment(s): vascular bypass bilateral, Past Anesthesia/Blood Transfusion Reactions: No Reported Reaction Past Psychological History: Depression Smoking Status: Current every day smoker Past Alcohol Use History: None Reported Past Drug Use History: None Reported - Past Family History Father Family Medical History: Cancer, Hypertension, Myocardial Infarction ([place]) Additional Family Medical History / Comment(s): Bone CA General Exam Limitations: no limitations Course Vital Signs 09/14/18 16:46 Temperature 97.7 F Pulse Rate 75 Respiratory 20 Rate Blood Pressure 144/84 O2 Sat by Pulse 97 Oximetry - Reevaluation(s) Reevaluation #1: 09/14/18 19:18 Medical record reviewed Reevaluation #2: 09/14/18 19:18 This is able to ambulate without significant difficulty, no neurological findings on repeat exam Medical Decision Making - Medical Decision Making 53 female the ER with nonspecific lumbosacral back pain left buttocks pain and pain in the left thigh. CT lumbosacral spine negative for acute disease, patient will be discharged home at this time with pain control to follow-up with primary care if symptoms persist - Radiology Data Radiology results: report reviewed (CT abdomen pelvis is negative for acute disease), image reviewed Disposition Clinical Impression: Lumbar back pain, Sciatic nerve palsy, left Disposition: HOME SELF-CARE Condition: Good Instructions (If sedation given, give patient instructions): Sciatica (ED), Lumbar Radiculopathy (ED) Prescriptions: Naproxen [Naprosyn] 500 mg PO Q12HR PRN #30 tab PRN Reason: Pain Is patient prescribed a controlled substance at d/c from ED?: No Referrals: Aryan Noble MD [Primary Care Provider] - 1-2 days
[2018-09-14 19:23] VITALS: BP 123/68; PULSE 77; RESP 17; TEMP 97.6
== END 2018-09-14 19:30 | disposition home or self-care (01) ==
LOC: EC 16:40
DX: G58.9 Mononeuropathy, unspecified (principal); M54.42 Lumbago with sciatica, left side; J44.9 Chronic obstructive pulmonary disease, unspecified; I10 Essential (primary) hypertension; M19.90 Unspecified osteoarthritis, unspecified site; F17.200 Nicotine dependence, unspecified, uncomplicated; Z88.5 Allergy status to narcotic agent; Z91.018 Allergy to other foods; Z79.02 Long term (current) use of antithrombotics/antiplatelets; Z79.82 Long term (current) use of aspirin; Z79.84 Long term (current) use of oral hypoglycemic drugs; Z79.899 Other long term (current) drug therapy; Z80.8 Family history of malignant neoplasm of other organs or systems
CPT/HCPCS: 99284; 96372; 74176; J8540; J1885

== ENCOUNTER 2018-10-15 15:08 | Emergency (ER) | payer OTHER ==
[2018-10-15 15:43] VITALS: RESP 18
--- NOTE | 2018-10-15 16:44 | XR ---
EXAMINATION TYPE: XR ankle complete RT DATE OF EXAM: 10/15/2018 COMPARISON: NONE HISTORY: Pain TECHNIQUE: 3 views FINDINGS: There is soft tissue swelling around the ankle joint. I see no fracture nor dislocation. Ana Luisa int spaces are fairly normal. There is calcaneal spurring. IMPRESSION: Soft tissue swelling. No fracture.
--- NOTE | 2018-10-15 16:55 | XR ---
EXAMINATION TYPE: XR tibia fibula RT DATE OF EXAM: 10/15/2018 COMPARISON: 09/15/2016 HISTORY: Pain TECHNIQUE: 3 views FINDINGS: There is mild subcutaneous edema around the lower leg. Tibia and fibula appear intact. I se e no fracture. IMPRESSION: Soft tissue swelling increased compared to old exam. No fracture seen.
--- NOTE | 2018-10-15 16:57 | XR ---
EXAMINATION TYPE: XR knee complete RT DATE OF EXAM: 10/15/2018 COMPARISON: NONE HISTORY: Pain TECHNIQUE: 3 views FINDINGS: There is soft tissue swelling anterior to the patella. I see no fracture nor dislocation. J oint spaces are normal. There is no sign of joint effusion. IMPRESSION: Significant anterior soft tissue swelling. No fracture.
[2018-10-15] MEDS ORDERED: HYDROcodone/APAP 10-325MG 1 EACH TAB PO ONE (17:00)
--- NOTE | 2018-10-15 17:41 | ED ---
Fall HPI - General Chief Complaint: Fall Stated Complaint: Fall Time Seen by Provider: 10/15/18 16:41 Source: patient Mode of arrival: wheelchair - History of Present Illness Initial Comments: Is a 53-year-old female who presents emergency department for right knee and ankle pain. The patient states that she was walking and she tripped and she fell and hit her right knee and ankle. She states that she was unable to get up after the fall however was able to scoot her self along the ground come to the emergency department. She denies any loss of consciousness. No head injury. She states that she did land on her right hand however has no pain there. She does have a history of chronic back pain which is unchanged. She denies any other acute complaints. - Related Data Home Medications Medication Instructions Recorded Confirmed Aspirin 81 mg PO DAILY 04/08/15 10/15/18 Montelukast [Singulair] 10 mg PO HS 04/08/15 10/15/18 Ranitidine HCl [Zantac] 150 mg PO DAILY 04/08/15 10/15/18 Cholecalciferol (Vitamin D3) 2,000 unit PO DAILY 07/05/17 10/15/18 [Vitamin D3] HYDROcodone/APAP 7.5-325MG [[place] 1 tab PO BID PRN 07/05/17 10/15/18 7.5-325] Vitamin B Complex 1 cap PO DAILY 07/05/17 10/15/18 metFORMIN HCL ER [Glucophage Xr] 500 mg PO BID 07/05/17 10/15/18 Clopidogrel Bisulfate [Plavix] 75 mg PO DAILY 09/14/18 10/15/18 Previous Rx's Medication Instructions Recorded Atorvastatin [Lipitor] 80 mg PO HS #30 tab 07/08/17 Metoprolol Tartrate [Lopressor] 12.5 mg PO DAILY #30 tab 07/08/17 Nitroglycerin Sl Tabs [Nitrostat] 0.4 mg SUBLINGUAL Q5M PRN #25 tab 07/08/17 HYDROcodone/APAP 5-325MG [[place] 1 tab PO Q6HR PRN 3 Days #10 tab 10/15/18 5-325] Allergies Allergy/AdvReac Type Severity Reaction Status Date / Time oxycodone Allergy Hallucinati Verified 10/15/18 17:05 ons tomato Allergy Rash/Hives Verified 10/15/18 17:05 Review of Systems ROS Statement: Those systems with pertinent positive or pertinent negative responses have been documented in the HPI. ROS Other: All systems not noted in ROS Statement are negative. Past Medical History Past Medical History: COPD, Fibromyalgia, Hypertension, Osteoarthritis (OA) History of Any Multi-Drug Resistant Organisms: None Reported Past Surgical History: Appendectomy, Tubal Ligation Additional Past Surgical History / Comment(s): vascular bypass bilateral, Past Anesthesia/Blood Transfusion Reactions: No Reported Reaction Past Psychological History: Depression Smoking Status: Current every day smoker Past Alcohol Use History: None Reported Past Drug Use History: Marijuana - Past Family History Father Family Medical History: Cancer, Hypertension, Myocardial Infarction ([place]) Additional Family Medical History / Comment(s): Bone CA General Exam - General Exam Comments Initial Comments: Constitutional: Awake alert Appears comfortable Head: Normocephalic atraumatic Eyes: no conjunctival injection No scleral icterus EOMI Neck: No JVD Supple Heart: Regular rate rhythm normal S1-S2 no murmurs Lungs: Clear to auscultation bilaterally No wheezing No rales Abdomen: Soft nondistended nontender Extremities: Non edematous DP pulses intact Radial pulses intact, there is extensive swelling and ecchymosis to the right knee and also to the right lateral lower leg. She is tender to palpation over these areas. She has decreased range of motion due to pain in the knee and ankle. The patient is able to wiggle her toes and has good DP and PT pulses bilaterally. Right hand is without any abrasions or contusions. No tenderness to palpation. Neuro: A&Ox3 No focal neurologic deficits Psych: Appropriate mood and affect Limitations: no limitations Course Vital Signs 10/15/18 15:39 Temperature 98.7 F Pulse Rate 84 Respiratory 18 Rate Blood Pressure 124/92 O2 Sat by Pulse 95 Oximetry Medical Decision Making - Medical Decision Making Is a 53-year-old female who presents emergency department for right knee pain and swelling. The patient had x-rays performed that did not show evidence for fracture. However due to significant amount of pain the patient had a computed tomography scan performed that also did not show any fracture however did show a large hematoma. The patient was given [place] with improvement in her pain. She will be sent home. She requested crutches because of difficulty with ambulation. She is to follow-up closely with her primary doctor to ice and elevate the area. She'll return to the emergency Department if she has any worsening or changing symptoms. All questions were answered. Disposition Clinical Impression: Contusion of knee Disposition: HOME SELF-CARE Condition: Stable Instructions (If sedation given, give patient instructions): Knee Pain (ED) Prescriptions: HYDROcodone/APAP 5-325MG [[place] 5-325] 1 tab PO Q6HR PRN 3 Days #10 tab PRN Reason: Pain Is patient prescribed a controlled substance at d/c from ED?: Yes When asked, does pt state using other controlled substances?: No If prescribed controlled substance>3 days was MAPS reviewed?: Prescribed <3 Days If opioid is for acute pain is fill amount 7 days or less?: Yes If Rx opioid, was Start Talking consent form obtained?: Yes Referrals: Aryan Noble MD [Primary Care Provider] - 1-2 days
--- NOTE | 2018-10-15 18:17 | CT ---
EXAMINATION TYPE: CT lower leg RT wo con DATE OF EXAM: 10/15/2018 COMPARISON: None HISTORY: Fall today. Bruising to right knee, calf and outside of ankle. CT DLP: 231.4 mGycm Automated exposure control for dose reduction was used. FINDINGS: Multiple axial sections were obtained from the distal femur to the bottom of the foot with no contras t. There is subcutaneous edema around the ankle joint on the lateral aspect more than the medial aspect. There is subcutaneous edema around the lateral aspect of the calf. There is extensive density in the subcutaneous tissues anterior to the patella consistent with subcutaneous hematoma. This measures 6 x 6 x 3.5 cm. There is surrounding subcutaneous fat stranding consistent with bruising. The patella appears intact. The distal femur is intact. The tibia and fibula show no sign of a fractu re. The ankle mortise is anatomic. Knee and ankle joint spaces are fairly normal. I see no focal bone destruction. Subtalar joint appears normal. IMPRESSION: SUBCUTANEOUS HEMATOMA ANTERIOR TO THE PATELLA. SUBCUTANEOUS EDEMA AND BRUISING AROUND THE ENTIRE LOWE R LEG EXTENDING FROM THE KNEE JOINT TO THE ANKLE JOINT.
[2018-10-15 19:02] VITALS: BP 122/76; PULSE 80; TEMP 97.6
== END 2018-10-15 19:02 | disposition home or self-care (01) ==
LOC: EC 15:08
DX: S80.01XA Contusion of right knee, initial encounter (principal); M25.571 Pain in right ankle and joints of right foot; J44.9 Chronic obstructive pulmonary disease, unspecified; F17.200 Nicotine dependence, unspecified, uncomplicated; Z87.39 Personal history of other diseases of the musculoskeletal system and connective tissue; Z79.82 Long term (current) use of aspirin; Z79.84 Long term (current) use of oral hypoglycemic drugs; Z79.02 Long term (current) use of antithrombotics/antiplatelets; Z79.899 Other long term (current) drug therapy; Z88.5 Allergy status to narcotic agent; Z91.018 Allergy to other foods; W01.0XXA Fall on same level from slipping, tripping and stumbling without subsequent striking against object, initial encounter; Y93.01 Activity, walking, marching and hiking; Y92.009 Unspecified place in unspecified non-institutional (private) residence as the place of occurrence of the external cause
CPT/HCPCS: 73590; 73562; 73610; 73700; 99284; L1830

== ENCOUNTER → 2019-04-26 | Outpatient (CLI) | payer OTHER ==
[2019-04-26 19:05] LABS: African American GFR (CKD) 96.2 (60.0-200.0); Albumin 4.3 g/dL (3.80-4.90); Albumin/Globulin Ratio 2.69 (1.60-3.17); Anion Gap 6.4 mmol/L (4.00-12.00); Calcium 9.8 mg/dL (8.7-10.3); Carbon Dioxide 30.6 mmol/L (21.6-31.8); Globulin 1.6 g/dL (1.6-3.3); Potassium 3.9 mmol/L (3.5-5.5); Total Bilirubin 0.6 mg/dL (0.3-1.2); Total Protein 5.9 g/dL (6.2-8.2)
[2019-04-26 22:26] LABS: Hemoglobin A1C 6.5 % (4.0-6.0)
== END | disposition home or self-care (01) ==
LOC: LABWHC1 12:01
PROVIDERS: ATTEND Nurse Practitioner Family
DX: I70.238 Atherosclerosis of native arteries of right leg with ulceration of other part of lower leg (principal); E11.622 Type 2 diabetes mellitus with other skin ulcer; L97.912 Non-pressure chronic ulcer of unspecified part of right lower leg with fat layer exposed
CPT/HCPCS: 36415; 80053; 83036; 84134

== ENCOUNTER → 2019-04-27 | Outpatient (CLI) | payer OTHER ==
--- NOTE | 2019-04-27 10:28 | US ---
LOWER EXTREMITY VENOUS INSUFFICIENCY CLINICAL HISTORY: L97.462 NON PRESSURE CHR ULCER RT LOWER LEG. Right lower leg nonhealing wound. SIDE PERFORMED: Bilateral Comparison: Left lower extremity venous ultrasound August 21, 2011. 1) Color flow is present and patency is documented in the following vessels. No DVT or SVT is noted . EIV Common Femoral Vein Deep Femoral Vein Femoral Vein Popliteal Vein Proximal Calf Veins Greater Saph Vein Upper Small Saph Vein 2) There is venous reflux noted at the following venous levels: None 3) Incompetent perforators are noted at these levels: None IMPRESSION: No ultrasound evidence for acute DVT in either lower extremity. No significant venous ref lux identified bilaterally during real-time scanning per technologist.
== END | disposition home or self-care (01) ==
LOC: RADUSWWP 08:50
PROVIDERS: ATTEND Thoracic Surgery (Cardiothoracic Vascular Surgery)
DX: L97.912 Non-pressure chronic ulcer of unspecified part of right lower leg with fat layer exposed (principal); E11.622 Type 2 diabetes mellitus with other skin ulcer; I70.238 Atherosclerosis of native arteries of right leg with ulceration of other part of lower leg
CPT/HCPCS: 93923; 93970

== ENCOUNTER → 2019-07-20 | Outpatient (CLI) | payer OTHER | END | disposition home or self-care (01) | LOC: LABWHC1 14:16 | PROVIDERS: ATTEND Nurse Practitioner Acute Care | DX: I49.9 Cardiac arrhythmia, unspecified (principal) | CPT/HCPCS: 36415; 93005 ==

== ENCOUNTER → 2019-09-22 | Outpatient (CLI) | payer OTHER ==
[2019-09-22 11:52] LABS: Basophils % (A) 0 %; Eosinophils # (A) 0.3 k/uL (0-0.7); Eosinophils % (A) 3 %; HCT 44.8 % (34.0-46.0); HGB 14.3 gm/dL (11.4-16.0); Lymphocytes # (A) 1.9 k/uL (1.0-4.8); Lymphocytes % (A) 21 %; MCH 31.7 pg (25.0-35.0); MCHC 31.9 g/dL (31.0-37.0); MCV 99.2 fL (80.0-100.0); Mean Platelet Volume 8.7; Monocytes # (A) 0.4 k/uL (0-1.0); Monocytes % (A) 5 %; Neutrophils # (A) 6.3 k/uL (1.3-7.7); Neutrophils % (A) 70 %; Platelet Count 226 k/uL (150-450); RBC 4.52 m/uL (3.80-5.40); RDW 13.2 % (11.5-15.5); WBC 9.1 k/uL (3.8-10.6)
[2019-09-22 20:00] LABS: African American GFR (CKD) 96.2 (60.0-200.0); Albumin/Globulin Ratio 2.22 (1.60-3.17); Anion Gap 9.7 mmol/L (4.00-12.00); BUN/Creat Ratio 8.75 Ratio (12.00-20.00); Calcium 9.1 mg/dL (8.7-10.3); Carbon Dioxide 25.3 mmol/L (21.6-31.8); Globulin 1.8 g/dL (1.6-3.3); Potassium 3.7 mmol/L (3.5-5.5); Total Bilirubin 0.5 mg/dL (0.2-1.2); Total Protein 5.8 g/dL (6.2-8.2)
[2019-09-22 22:33] LABS: Hemoglobin A1C 7.2 % (4.0-6.0)
== END | disposition home or self-care (01) ==
LOC: LABWHC1 11:17
PROVIDERS: ATTEND Family Medicine
DX: E11.9 Type 2 diabetes mellitus without complications (principal); R60.9 Edema, unspecified
CPT/HCPCS: 36415; 80053; 83036; 84443; 85025

== ENCOUNTER 2020-04-25 15:17 | Emergency (ER) | payer OTHER ==
[2020-04-25 15:36] VITALS: BP 132/86; PULSE 77; RESP 18; TEMP 98
[2020-04-25] MEDS ORDERED: LIDOCAINE 1%-EPI 1:100,000 20 ML VIAL SQ STA (16:16)
--- NOTE | 2020-04-25 16:35 | ED ---
Skin/Abscess/FB HPI - General Chief complaint: Skin/Abscess/Foreign Body Stated complaint: abscess under rt arm Time Seen by Provider: 04/25/20 16:16 Source: patient, family Mode of arrival: ambulatory - History of Present Illness Initial comments: 55-year-old female presenting to the emergency department with chief complaint of an abscess. Patient reports history of abscesses but never in the axilla. Patient states no history of MRSA. No IV drug use. States his been there for the past few days and has gradually increased since. He appears to be reports some yellow discharge while she was taking a shower earlier today. Denies any night sweats fevers or chills. Does report some erythema and tenderness to the touch. - Related Data Home Medications Medication Instructions Recorded Confirmed Aspirin 81 mg PO DAILY 04/08/15 10/15/18 Montelukast [Singulair] 10 mg PO HS 04/08/15 10/15/18 Ranitidine HCl [Zantac] 150 mg PO DAILY 04/08/15 10/15/18 Cholecalciferol (Vitamin D3) 2,000 unit PO DAILY 07/05/17 10/15/18 [Vitamin D3] HYDROcodone/APAP 7.5-325MG [[place] 1 tab PO BID PRN 07/05/17 10/15/18 7.5-325] Vitamin B Complex 1 cap PO DAILY 07/05/17 10/15/18 metFORMIN HCL ER [Glucophage Xr] 500 mg PO BID 07/05/17 10/15/18 Clopidogrel Bisulfate [Plavix] 75 mg PO DAILY 09/14/18 10/15/18 Previous Rx's Medication Instructions Recorded Atorvastatin [Lipitor] 80 mg PO HS #30 tab 07/08/17 Metoprolol Tartrate [Lopressor] 12.5 mg PO DAILY #30 tab 07/08/17 Nitroglycerin Sl Tabs [Nitrostat] 0.4 mg SUBLINGUAL Q5M PRN #25 tab 07/08/17 HYDROcodone/APAP 5-325MG [[place] 1 tab PO Q6HR PRN 3 Days #10 tab 10/15/18 5-325] Allergies Allergy/AdvReac Type Severity Reaction Status Date / Time oxycodone Allergy Hallucinati Verified 04/25/20 15:38 ons tomato Allergy Rash/Hives Verified 04/25/20 15:38 Review of Systems ROS Statement: Those systems with pertinent positive or pertinent negative responses have been documented in the HPI. ROS Other: All systems not noted in ROS Statement are negative. Past Medical History Past Medical History: COPD, Fibromyalgia, Hypertension, Osteoarthritis (OA) History of Any Multi-Drug Resistant Organisms: None Reported Past Surgical History: Appendectomy, Tubal Ligation Additional Past Surgical History / Comment(s): vascular bypass bilateral, Past Anesthesia/Blood Transfusion Reactions: No Reported Reaction Past Psychological History: Depression Past Alcohol Use History: None Reported Past Drug Use History: Marijuana - Past Family History Father Family Medical History: Cancer, Hypertension, Myocardial Infarction ([place]) Additional Family Medical History / Comment(s): Bone CA General Exam Limitations: no limitations General appearance: alert, in no apparent distress, obese Head exam: Present: atraumatic, normocephalic, normal inspection Eye exam: Present: normal appearance, PERRL, EOMI Pupils: Present: normal accommodation ENT exam: Present: normal exam, normal oropharynx, mucous membranes moist, TM's normal bilaterally, normal external ear exam Neck exam: Present: normal inspection, full ROM. Absent: tenderness Respiratory exam: Present: normal lung sounds bilaterally. Absent: respiratory distress, wheezes, rales, rhonchi, stridor Cardiovascular Exam: Present: regular rate, normal rhythm, normal heart sounds. Absent: systolic murmur, diastolic murmur Extremities exam: Present: full ROM, tenderness (Tenderness at the abscess site), normal capillary refill. Absent: normal inspection (Fluctuant abscess on the right axilla) Back exam: Present: normal inspection, full ROM. Absent: tenderness, CVA tenderness (R), CVA tenderness (L) Neurological exam: Present: alert, oriented X3 Psychiatric exam: Present: normal affect, normal mood Skin exam: Present: warm, dry, intact, normal color Course Vital Signs 04/25/20 15:33 Temperature 98.0 F Pulse Rate 77 Respiratory 18 Rate Blood Pressure 132/86 O2 Sat by Pulse 98 Oximetry Procedures - Incision & Drainage Consent Obtained: verbal consent Indication: Abscess Site: upper extremity (Right axilla) Size (cm): 3 Anesthetic Used: lidocaine 1%, with epi Amount (mLs): 5 I&D Cleaning Method: Alcohol Wipe Sterile Field Used?: No Scalpel Used: #11 Needle Aspiration Performed?: No Irrigation Performed?: No I&D Drainage Obtained: Pus, Blood Culture Obtained?: No Complications: pain, bleeding Patient Tolerated Procedure: well, no complications Medical Decision Making - Medical Decision Making 55-year-old female presenting to the emergency department with chief complaint of an abscess. Incision and drainage was performed in the right axilla. Patient will be started on Bactrim. She will be discharged with Bactrim for 10 days. Advised to apply warm compresses. Return parameters discussed. Case discussed with physician. Disposition Clinical Impression: Abscess of axilla, right Disposition: HOME SELF-CARE Condition: Stable Instructions (If sedation given, give patient instructions): Abscess (ED), Abscess Incision and Drainage (ED) Additional Instructions: Apply warm compress. Take nausea medication as directed. Return to emergency department if he develops any fever or chills or increase of the size of the lesion. Is patient prescribed a controlled substance at d/c from ED?: No Referrals: Aryan Noble MD [Primary Care Provider] - 1-2 days Time of Disposition: 16:40
[2020-04-25] MEDS ORDERED: SULFAMETH-TMP DS STARTER PACK 2 TAB BTL PO STA (16:36)
== END 2020-04-25 16:55 | disposition home or self-care (01) ==
LOC: EC 15:17
DX: L02.411 Cutaneous abscess of right axilla (principal); M19.90 Unspecified osteoarthritis, unspecified site; J44.9 Chronic obstructive pulmonary disease, unspecified; Z79.82 Long term (current) use of aspirin; Z79.02 Long term (current) use of antithrombotics/antiplatelets; Z79.84 Long term (current) use of oral hypoglycemic drugs; Z79.899 Other long term (current) drug therapy; Z88.5 Allergy status to narcotic agent; Z91.018 Allergy to other foods
CPT/HCPCS: 10060; 99283

== ENCOUNTER 2020-09-22 20:25 | Emergency (ER) | payer OTHER ==
[2020-09-22 20:31] VITALS: TEMP 98
[2020-09-22] MEDS ORDERED: ONDANSETRON 4 MG/2 ML VIAL IVP STA (20:50)
[2020-09-22] MEDS ORDERED: HYDROmorphone 1 MG/ML 1 ML SYRINGE IVP STA ×2 (20:50→21:50)
[2020-09-22 21:18] LABS: ALT 30 U/L (4-34); AST 29 U/L (14-36); African American GFR (CKD) >90 (>60 ml/min/1.73 sqM); Albumin 4.1 g/dL (3.5-5.0); Alkaline Phosphatase 114 U/L (38-126); Anion Gap 6 mmol/L; Blood Urea Nitrogen 10 mg/dL (7-17); Calcium 9.3 mg/dL (8.4-10.2); Carbon Dioxide 28 mmol/L (22-30); Chloride 107 mmol/L (98-107); Glucose 96 mg/dL (74-99); Non-African American GFR(CKD) 87 (>60 ml/min/1.73 sqM); Potassium 4.3 mmol/L (3.5-5.1); Sodium 141 mmol/L (137-145); Total Bilirubin 0.7 mg/dL (0.2-1.3); Total Protein 6.7 g/dL (6.3-8.2)
[2020-09-22 21:36] LABS: Basophils % (A) 0 %; Eosinophils # (A) 0.3 k/uL (0-0.7); Eosinophils % (A) 4 %; HCT 40.5 % (34.0-46.0); HGB 13.8 gm/dL (11.4-16.0); Lymphocytes # (A) 2.2 k/uL (1.0-4.8); Lymphocytes % (A) 29 %; MCH 32.8 pg (25.0-35.0); MCHC 34.1 g/dL (31.0-37.0); MCV 96.1 fL (80.0-100.0); Mean Platelet Volume 8.9; Monocytes # (A) 0.4 k/uL (0-1.0); Monocytes % (A) 5 %; Neutrophils # (A) 4.5 k/uL (1.3-7.7); Neutrophils % (A) 59 %; Platelet Count 246 k/uL (150-450); RBC 4.21 m/uL (3.80-5.40); RDW 14.4 % (11.5-15.5); WBC 7.7 k/uL (3.8-10.6)
[2020-09-22 21:56] VITALS: BP 140/84; PULSE 80; RESP 18
--- NOTE | 2020-09-22 22:16 | ED ---
General Adult HPI - General Chief complaint: Wound/Laceration Stated complaint: Left leg pain Time Seen by Provider: 09/22/20 20:38 Source: patient Mode of arrival: wheelchair Limitations: physical limitation - History of Present Illness Initial comments: 55 year-old female patient presents to the emergency department for evaluation of left leg and foot pain. Patient has chronic ulcers to the left leg and history of neuropathy. States that pain in her leg has been worsening over the last week. States she has been having some drainage from the wounds. Does see the wound care center and her daughter changes the dressings for her. Denies any fever or chills. Denies vomiting. Denies any injury to the leg. States that she has been taking home norco and motrin without relief. Does have a bone scan scheduled next week. Patient denies any recent rash, cough, shortness of breath, chest pain, abdominal pain, nausea, vomiting, diarrhea, constipation, b ack pain, numbness, tingling, dizziness, weakness, hematuria, dysuria, urinary urgency, urinary frequency, headache, visual changes, or any other complaints. - Related Data Home Medications Medication Instructions Recorded Confirmed Aspirin 81 mg PO DAILY 04/08/15 10/15/18 Montelukast [Singulair] 10 mg PO HS 04/08/15 10/15/18 Ranitidine HCl [Zantac] 150 mg PO DAILY 04/08/15 10/15/18 Cholecalciferol (Vitamin D3) 2,000 unit PO DAILY 07/05/17 10/15/18 [Vitamin D3] HYDROcodone/APAP 7.5-325MG [[place] 1 tab PO BID PRN 07/05/17 10/15/18 7.5-325] Vitamin B Complex 1 cap PO DAILY 07/05/17 10/15/18 metFORMIN HCL ER [Glucophage Xr] 500 mg PO BID 07/05/17 10/15/18 Clopidogrel Bisulfate [Plavix] 75 mg PO DAILY 09/14/18 10/15/18 Previous Rx's Medication Instructions Recorded Atorvastatin [Lipitor] 80 mg PO HS #30 tab 07/08/17 Metoprolol Tartrate [Lopressor] 12.5 mg PO DAILY #30 tab 07/08/17 Nitroglycerin Sl Tabs [Nitrostat] 0.4 mg SUBLINGUAL Q5M PRN #25 tab 07/08/17 HYDROcodone/APAP 5-325MG [[place] 1 tab PO Q6HR PRN 3 Days #10 tab 10/15/18 5-325] Sulfamethox-Tmp 800-160Mg [Bactrim 1 each PO Q12HR #20 tab 04/25/20 Ds] Allergies Allergy/AdvReac Type Severity Reaction Status Date / Time oxycodone Allergy Hallucinati Verified 09/22/20 20:31 ons tomato Allergy Rash/Hives Verified 09/22/20 20:31 Review of Systems ROS Statement: Those systems with pertinent positive or pertinent negative responses have been documented in the HPI. ROS Other: All systems not noted in ROS Statement are negative. Past Medical History Past Medical History: COPD, Fibromyalgia, Hypertension, Osteoarthritis (OA) Additional Past Medical History / Comment(s): chronic leg wounds History of Any Multi-Drug Resistant Organisms: None Reported Past Surgical History: Appendectomy, Tubal Ligation Additional Past Surgical History / Comment(s): vascular bypass bilateral, Past Anesthesia/Blood Transfusion Reactions: No Reported Reaction Past Psychological History: Depression Smoking Status: Current every day smoker Past Alcohol Use History: None Reported Past Drug Use History: Marijuana - Past Family History Father Family Medical History: Cancer, Hypertension, Myocardial Infarction ([place]) Additional Family Medical History / Comment(s): Bone [place] General Exam Limitations: physical limitation General appearance: alert, in no apparent distress, other (this is a well- developed, well-nourished adult female patient in no acute distress.) Eye exam: Present: normal appearance, PERRL, EOMI. Absent: scleral icterus, conjunctival injection, periorbital swelling ENT exam: Present: normal exam, normal oropharynx, mucous membranes moist Respiratory exam: Present: normal lung sounds bilaterally. Absent: respiratory distress, wheezes, rales, rhonchi, stridor Cardiovascular Exam: Present: regular rate, normal rhythm, normal heart sounds. Absent: systolic murmur, diastolic murmur, rubs, gallop, clicks GI/Abdominal exam: Present: soft, normal bowel sounds. Absent: distended, tenderness, guarding, rebound, rigid Extremities exam: Present: full ROM, normal capillary refill, other (Ulcers with purulent drainage noted to the left becerra. Very mild surrounding erythema. There is 1+ pitting edema to the left foot. Pedal pulse 2+. ). Absent: tenderness, pedal edema, joint swelling, calf tenderness Neurological exam: Present: alert, oriented X3, CN II-XII intact Psychiatric exam: Present: normal affect, normal mood Skin exam: Present: warm, dry, intact, normal color. Absent: rash Course Vital Signs 09/22/20 09/22/20 20:28 21:55 Temperature 98.0 F Pulse Rate 81 80 Respiratory 20 18 Rate Blood Pressure 180/86 140/84 O2 Sat by Pulse 94 L 100 Oximetry Medical Decision Making - Medical Decision Making 55 year-old female patient presents with complaints of left foot and leg pain. Does have chronic wounds to the left becerra. No fever. Labs unremarkable, WBC count normal. She is given pain medication. She does have appointment coming up with the wound care center and for bone scan. She will be discharged to follow up with PCP on Thursday. Return parameters are discussed in detail. she verbalizes understanding and agrees this plan. Case discussed with my attending Dr. Andino. - Lab Data Result diagrams: 09/22/20 21:00 09/22/20 21:00 Lab Results 09/22/20 09/22/20 09/22/20 Range/Units 21:00 21:00 21:00 WBC 7.7 (3.8-10.6) k/uL RBC 4.21 (3.80-5.40) m/uL Hgb 13.8 (11.4-16.0) gm/dL Hct 40.5 (34.0-46.0) % MCV 96.1 (80.0-100.0) fL MCH 32.8 (25.0-35.0) pg MCHC 34.1 (31.0-37.0) g/dL RDW 14.4 (11.5-15.5) % Plt Count 246 (150-450) k/uL MPV 8.9 Neutrophils % 59 % Lymphocytes % 29 % Monocytes % 5 % Eosinophils % 4 % Basophils % 0 % Neutrophils # 4.5 (1.3-7.7) k/uL Lymphocytes # 2.2 (1.0-4.8) k/uL Monocytes # 0.4 (0-1.0) k/uL Eosinophils # 0.3 (0-0.7) k/uL Basophils # 0.0 (0-0.2) k/uL Sodium 141 (137-145) mmol/L Potassium 4.3 (3.5-5.1) mmol/L Chloride 107 (98-107) mmol/L Carbon Dioxide 28 (22-30) mmol/L Anion Gap 6 mmol/L BUN 10 (7-17) mg/dL Creatinine 0.77 (0.52-1.04) mg/dL Est GFR (CKD-EPI)AfAm >90 (>60 ml/min/1.73 sqM) Est GFR (CKD-EPI)NonAf 87 (>60 ml/min/1.73 sqM) Glucose 96 (74-99) mg/dL Plasma Lactic Acid [place] 1.2 (0.7-2.0) mmol/L Calcium 9.3 (8.4-10.2) mg/dL Total Bilirubin 0.7 (0.2-1.3) mg/dL AST 29 (14-36) U/L ALT 30 (4-34) U/L Alkaline Phosphatase 114 (38-126) U/L Total Protein 6.7 (6.3-8.2) g/dL Albumin 4.1 (3.5-5.0) g/dL Disposition Clinical Impression: Left leg pain, Chronic wound of extremity Disposition: HOME SELF-CARE Condition: Good Instructions (If sedation given, give patient instructions): Leg Pain (ED), Chronic Wounds (ED) Additional Instructions: Follow-up through primary care physician on Thursday for further evaluation and treatment. Use the gel 2 g, 4 times daily as needed. Return to the emergency department for any new, worsening, or concerning symptoms. Is patient prescribed a controlled substance at d/c from ED?: No Referrals: Aryan Noble MD [Primary Care Provider] - 1-2 days Time of Disposition: 22:16
[2020-09-22] MEDS ORDERED: DICLOFENAC SODIUM GEL 100 GM TUBE TOPICAL ONE (22:30)
== END 2020-09-22 22:56 | disposition home or self-care (01) ==
LOC: EC 20:25
DX: M79.605 Pain in left leg (principal); L97.909 Non-pressure chronic ulcer of unspecified part of unspecified lower leg with unspecified severity; F17.200 Nicotine dependence, unspecified, uncomplicated; F12.90 Cannabis use, unspecified, uncomplicated; I10 Essential (primary) hypertension; J44.9 Chronic obstructive pulmonary disease, unspecified; M19.90 Unspecified osteoarthritis, unspecified site; M79.7 Fibromyalgia; F32.9 Major depressive disorder, single episode, unspecified; Z79.82 Long term (current) use of aspirin; Z90.49 Acquired absence of other specified parts of digestive tract; Z98.51 Tubal ligation status
CPT/HCPCS: 36415; 80053; 83605; 85025; 99283; 96374; 96376; 96375; J2405; J1170

== ENCOUNTER 2020-10-01 17:47 | Inpatient (IN) | payer OTHER ==
--- NOTE | 2020-10-01 18:30 | ED ---
General Adult HPI - General Chief complaint: Wound/Laceration Stated complaint: diabetic wound Time Seen by Provider: 10/01/20 17:50 Source: patient, RN notes reviewed, old records reviewed Mode of arrival: wheelchair Limitations: physical limitation - History of Present Illness Initial comments: This is a 55-year-old female who presents emergency Department with a chronic leg wound on the lateral aspect of her left leg. Patient states she's been goi ng to wound clinic and the wound is getting worse it's more painful and now it is very malodorous. Patient states it also is becoming a lot more discharge. Patient states she can't stand it at this point needs to be seen. Patient denies any new injury. Patient denies any fever but she does state occasionally she seems to get the chills. Patient denies any new injury. Patient denies any other complaint. - Related Data Home Medications Medication Instructions Recorded Confirmed Aspirin 81 mg PO DAILY 04/08/15 10/15/18 Montelukast [Singulair] 10 mg PO HS 04/08/15 10/15/18 Ranitidine HCl [Zantac] 150 mg PO DAILY 04/08/15 10/15/18 Cholecalciferol (Vitamin D3) 2,000 unit PO DAILY 07/05/17 10/15/18 [Vitamin D3] HYDROcodone/APAP 7.5-325MG [[place] 1 tab PO BID PRN 07/05/17 10/15/18 7.5-325] Vitamin B Complex 1 cap PO DAILY 07/05/17 10/15/18 metFORMIN HCL ER [Glucophage Xr] 500 mg PO BID 07/05/17 10/15/18 Clopidogrel Bisulfate [Plavix] 75 mg PO DAILY 09/14/18 10/15/18 Previous Rx's Medication Instructions Recorded Atorvastatin [Lipitor] 80 mg PO HS #30 tab 07/08/17 Metoprolol Tartrate [Lopressor] 12.5 mg PO DAILY #30 tab 07/08/17 Nitroglycerin Sl Tabs [Nitrostat] 0.4 mg SUBLINGUAL Q5M PRN #25 tab 07/08/17 HYDROcodone/APAP 5-325MG [[place] 1 tab PO Q6HR PRN 3 Days #10 tab 10/15/18 5-325] Sulfamethox-Tmp 800-160Mg [Bactrim 1 each PO Q12HR #20 tab 04/25/20 Ds] Allergies Allergy/AdvReac Type Severity Reaction Status Date / Time oxycodone Allergy Hallucinati Verified 10/01/20 17:57 ons tomato Allergy Rash/Hives Verified 10/01/20 17:57 Review of Systems ROS Statement: Those systems with pertinent positive or pertinent negative responses have been documented in the HPI. ROS Other: All systems not noted in ROS Statement are negative. Past Medical History Past Medical History: COPD, Diabetes Mellitus, Myocardial Infarction ([place]) Additional Past Medical History / Comment(s): Chronic left leg wound History of Any Multi-Drug Resistant Organisms: None Reported Past Surgical History: Appendectomy, Tubal Ligation Additional Past Surgical History / Comment(s): vascular bypass bilateral, Past Anesthesia/Blood Transfusion Reactions: No Reported Reaction Past Psychological History: Depression Smoking Status: Current every day smoker Past Alcohol Use History: None Reported Past Drug Use History: None Reported - Past Family History Father Family Medical History: Cancer, Hypertension, Myocardial Infarction ([place]) Additional Family Medical History / Comment(s): Bone CA General Exam - General Exam Comments Initial Comments: GENERAL: Patient is well-developed and well-nourished. Patient is nontoxic and well- hydrated and is in mild distress. ENT: Neck is soft and supple. No significant lymphadenopathy is noted. Oropharynx is clear. Moist mucous membranes. Neck has full range of motion without eliciting any pain. EYES: The sclera were anicteric and conjunctiva were pink and moist. Extraocular movements were intact and pupils were equal round and reactive to light. Eyelids were unremarkable. PULMONARY: Unlabored respirations. Good breath sounds bilaterally. No audible rales rhonchi or wheezing was noted. CARDIOVASCULAR: There is a regular rate and rhythm without any murmurs gallops or rubs. ABDOMEN: Soft and nontender with normal bowel sounds. SKIN: Skin is clear with no lesions or rashes and otherwise unremarkable. NEUROLOGIC: Patient is alert and oriented x3. Cranial nerves II through XII are grossly intact. Motor and sensory are also intact. Normal speech, volume and content. Symmetrical smile. MUSCULOSKELETAL: Normal extremities with adequate strength and full range of motion. Left lower extremity has 3 ulcerations that are draining some pus and extremely tender to touch LYMPHATICS: No significant lymphadenopathy is noted PSYCHIATRIC: Normal psychiatric evaluation. Limitations: physical limitation Course Vital Signs 10/01/20 17:52 Temperature 97.8 F Pulse Rate 75 Respiratory 18 Rate Blood Pressure 163/79 O2 Sat by Pulse 96 Oximetry Medical Decision Making - Medical Decision Making I spoke with Dr. Nolasco he agreed to admit the patient admitted the patient started the patient [email or web address] I admitted the patient wrote admitting orders and consulted wound care - Lab Data Result diagrams: 10/01/20 18:38 10/01/20 18:38 Lab Results 10/01/20 10/01/20 Range/Units 18:38 18:38 WBC 6.3 (3.8-10.6) k/uL RBC 4.32 (3.80-5.40) m/uL Hgb 13.5 (11.4-16.0) gm/dL Hct 41.1 (34.0-46.0) % MCV 95.2 (80.0-100.0) fL MCH 31.2 (25.0-35.0) pg MCHC 32.8 (31.0-37.0) g/dL RDW 14.8 (11.5-15.5) % Plt Count 261 (150-450) k/uL MPV 8.6 Neutrophils % 60 % Lymphocytes % 27 % Monocytes % 6 % Eosinophils % 4 % Basophils % 1 % Neutrophils # 3.8 (1.3-7.7) k/uL Lymphocytes # 1.7 (1.0-4.8) k/uL Monocytes # 0.4 (0-1.0) k/uL Eosinophils # 0.3 (0-0.7) k/uL Basophils # 0.0 (0-0.2) k/uL Sodium 143 (137-145) mmol/L Potassium 3.7 (3.5-5.1) mmol/L Chloride 110 H (98-107) mmol/L Carbon Dioxide 26 (22-30) mmol/L Anion Gap 7 mmol/L BUN 7 (7-17) mg/dL Creatinine 0.59 (0.52-1.04) mg/dL Est GFR (CKD-EPI)AfAm >90 (>60 ml/min/1.73 sqM) Est GFR (CKD-EPI)NonAf >90 (>60 ml/min/1.73 sqM) Glucose 63 L (74-99) mg/dL Calcium 9.3 (8.4-10.2) mg/dL Total Bilirubin 0.6 (0.2-1.3) mg/dL AST 30 (14-36) U/L ALT 31 (4-34) U/L Alkaline Phosphatase 103 (38-126) U/L Total Protein 6.6 (6.3-8.2) g/dL Albumin 4.0 (3.5-5.0) g/dL Disposition Clinical Impression: Infected wound Disposition: ADMITTED IP TO THIS HOSP Referrals: Aryan Noble MD [Primary Care Provider] - 1-2 days Time of Disposition: 20:21
[2020-10-01] MEDS ORDERED: HYDROmorphone 1 MG/ML 1 ML SYRINGE IVP STA (18:32)
[2020-10-01 18:46] LABS: Basophils % (A) 1 %; Eosinophils # (A) 0.3 k/uL (0-0.7); Eosinophils % (A) 4 %; HCT 41.1 % (34.0-46.0); HGB 13.5 gm/dL (11.4-16.0); Lymphocytes # (A) 1.7 k/uL (1.0-4.8); Lymphocytes % (A) 27 %; MCH 31.2 pg (25.0-35.0); MCHC 32.8 g/dL (31.0-37.0); MCV 95.2 fL (80.0-100.0); Mean Platelet Volume 8.6; Monocytes # (A) 0.4 k/uL (0-1.0); Monocytes % (A) 6 %; Neutrophils # (A) 3.8 k/uL (1.3-7.7); Neutrophils % (A) 60 %; Platelet Count 261 k/uL (150-450); RBC 4.32 m/uL (3.80-5.40); RDW 14.8 % (11.5-15.5); WBC 6.3 k/uL (3.8-10.6)
[2020-10-01 18:54] LABS: ALT 31 U/L (4-34); AST 30 U/L (14-36); African American GFR (CKD) >90 (>60 ml/min/1.73 sqM); Alkaline Phosphatase 103 U/L (38-126); Anion Gap 7 mmol/L; Blood Urea Nitrogen 7 mg/dL (7-17); Calcium 9.3 mg/dL (8.4-10.2); Carbon Dioxide 26 mmol/L (22-30); Chloride 110 mmol/L (98-107); Glucose 63 mg/dL (74-99); Non-African American GFR(CKD) >90 (>60 ml/min/1.73 sqM); Potassium 3.7 mmol/L (3.5-5.1); Sodium 143 mmol/L (137-145); Total Bilirubin 0.6 mg/dL (0.2-1.3); Total Protein 6.6 g/dL (6.3-8.2)
--- NOTE | 2020-10-01 19:29 | XR ---
EXAMINATION TYPE: XR tibia fibula LT DATE OF EXAM: 10/01/2020 COMPARISON: NONE HISTORY: Pain TECHNIQUE: 4 views FINDINGS: There is soft tissue defect over the lateral lower fibula consistent with large wound that measures 8 cm in length. I see no focal bone destruction. The knee joint and ankle joint appear intac t. There is plantar calcaneal spurring. IMPRESSION: Large wound on the lateral aspect of the lower fibula. No sign of osteomyelitis. No fract ure.
[2020-10-01] MEDS ORDERED: HYDROmorphone 0.5 MG/0.5 ML SYRINGE IVP STA (19:50)
[2020-10-01] MEDS ORDERED: VANCOMYCIN IV PER PHARMACY 1 EACH MISC MISCELLANE PRN (20:15)
[2020-10-01] MEDS ORDERED: SODIUM CHLORIDE 0.9% 1,000 ML IV ONE (20:21)
[2020-10-01] MEDS: PIPERACILLIN-TAZOBACTAM 3.375 GM in SODIUM CHLORIDE 0.9% 100 ML IVPB SCH (20:36)
[2020-10-01] MEDS: VANCOMYCIN 1,750 MG in SODIUM CHLORIDE 0.9% 250 ML IVPB SCH (21:20)
[2020-10-01] MEDS: HYDROmorphone 0.5 MG/0.5 ML SYRINGE IVP PRN (21:20)
[2020-10-02] MEDS ORDERED: ATORVASTATIN 80 MG TAB PO STA (00:40)
[2020-10-02] MEDS ORDERED: MONTELUKAST 10 MG TAB PO STA (00:40)
[2020-10-02] MEDS: HYDROmorphone 0.5 MG/0.5 ML SYRINGE IVP PRN ×2 (00:45→05:04)
[2020-10-02] MEDS: PIPERACILLIN-TAZOBACTAM 3.375 GM in SODIUM CHLORIDE 0.9% 100 ML IVPB SCH (05:12)
[2020-10-02 07:14] LABS: Glucose,Whole Blood 101 mg/dL (75-99)
[2020-10-02] MEDS ORDERED: FUROSEMIDE 20 MG TAB PO PRN (08:43)
[2020-10-02] MEDS ORDERED: NON FORMULARY DRUG (Vitamin B Complex [Vitamin B Complex] 1 EACH Capsule) PO SCH (09:00)
[2020-10-02] MEDS: HYDROmorphone 1 MG/ML 1 ML SYRINGE IVP PRN ×3 (09:02→18:02)
[2020-10-02] MEDS: VANCOMYCIN 1,750 MG in SODIUM CHLORIDE 0.9% 250 ML IVPB SCH (09:51)
[2020-10-02] MEDS: PANTOPRAZOLE 40 MG TABLET PO SCH (09:52)
[2020-10-02] MEDS: CHOLECALCIFEROL 25 MCG (1000 IU) TABLET PO SCH (09:52)
[2020-10-02] MEDS: ASPIRIN 81 MG PO SCH (09:52)
[2020-10-02] MEDS: SPIRONOLACTONE 25 MG TAB PO SCH (09:52)
[2020-10-02] MEDS: METOPROLOL TARTRATE 12.5 MG TAB PO SCH (09:54)
[2020-10-02] MEDS: tiZANidine 4 MG TAB PO PRN (09:54)
[2020-10-02] MEDS: GLIMEPIRIDE 2 MG TAB PO SCH (09:55)
[2020-10-02] MEDS: PREGABALIN PO SCH (10:29)
[2020-10-02] MEDS: HYDROcodone/APAP 10-325MG 1 EACH TAB PO SCH ×3 (10:40→21:17)
[2020-10-02] MEDS: metFORMIN 500 MG TAB PO SCH ×2 (10:41→21:19)
[2020-10-02] MEDS ORDERED: COLLAGENASE 250 UNIT/GM OINTMENT 30 GM TUBE TOPICAL SCH (10:45)
[2020-10-02 11:32] LABS: Glucose,Whole Blood 149 mg/dL (75-99)
--- NOTE | 2020-10-02 11:52 | P.CONS ---
History of Present Illness - Reason for Consult Consult date: 10/02/20 wound care - History of Present Illness This is a 55-year-old female known to the wound care center being seen in the ER for a nonhealing ulceration to the left lateral lower extremity. Patient has had the ulceration for approximately 12 weeks. Approximately 2 weeks ago a deep tissue culture was obtained which had Staphylococcus aureus or rare present and was not treated at that time. This is a venous stasis ulcer. Patient has attempted compression in the past but due to significant amount of pain she removed the compression garment within a few days of wearing it. We have utilize Santyl and collagen to the site. Patient does not tolerate any type of dressing to her ankle. Patient also does not tolerate debridement in the wound care center. Last week patient had significant amount of edema to the site whi ch has resolved. Patient continues to complain of significant amount of pain to the site. Patient has a nonhealing ulceration to the left lateral leg with fatty layer exposure. Cluster of 5 ulcerations. Significant amount of slough seen within the wound bed and no granulation seen. Patient has serous drainage to the site. Original cause of wound was Gradually Appeared. The wound is currently classified as a Grade 2 wound with etiologies of Diabetic Wound/Ulcer of the Lower Extremity and Venous Leg Ulcer and is located on the Left,Anterior Lower Leg. The wound measures 8.6cm length x 5.8cm width x 0.4cm depth; 39.176cm^2 area and 15.67cm^3 volume. There is Fat Layer (Subcutaneous Tissue) Exposed exposed. There is no tunneling or undermining noted. There is a medium amount of serosanguineous drainage noted. The wound margin is indistinct and nonvisible. There is no granulation within the wound bed. There is a large (67- 100%) amount of necrotic tissue within the wound bed including Adherent Slough. The periwound skin appearance exhibited: Scarring, Hemosiderin Staining, Erythema. The periwound skin appearance did not exhibit: Callus, Crepitus, Excoriation, Induration, Rash, Dry/Scaly, Maceration, Atrophie [place], Cyanosis, Ecchymosis, Mottled, Pallor, Rubor. The surrounding wound skin color is noted with erythema which is circumferential. Periwound temperature was noted as No Abnormality. The periwound has tenderness on palpation. Review Of Systems: Constitutional: No fever, no chills, no night sweats. No weight change. No weakness, fatigue or lethargy. No daytime sleepiness. Integumentary:reports wounds, no lesions. No rash or pruritus. No unusual bruising. No change in hair or nails. Physical exam: General Appearance: Alert, cooperative, no distress, appears stated age. Skin: See HPI all other Skin color, texture, tugor normal, no rashes or lesions. Neurologic: Alert oriented x3 Assessment: 1. 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 Type 2 diabetes with other skin ulcer 3. Chronic venous hypertension with ulcer and inflammation of left lower extremity Plan: 1. Apply Santyl, saline moistened gauze, dry gauze, rolled gauze and secure with paper tape. Change daily. Patient is scheduled for a bone scan on to rule out osteomyelitis. Due to the inability to tolerate debridement at the clinic a surgical debridement would be appreciated. Patient will continue with advance wound care in the wound care center next Thursday at 1:00. At that time we will discuss possible hyperbaric chamber therapy Thank you for the consultation any questions please contact the wound care center DNP note has been reviewed and discussed with Dr. Lala and the impression and plan of care has been directed as dictated. Past Medical History Past Medical History: COPD, Diabetes Mellitus, Fibromyalgia, GERD/Reflux, Hyperlipidemia, Myocardial Infarction ([place]), Osteoarthritis (OA), Skin Disorder Additional Past Medical History / Comment(s): Chronic left leg wound/WCC, NIDDM type II, neuropathy L leg/foot, bilateral sciatica, bronchitis, Last Myocardial Infarction Date:: 07/05/17 History of Any Multi-Drug Resistant Organisms: None Reported Past Surgical History: Appendectomy, Heart Catheterization With Stent, Tubal Ligation Additional Past Surgical History / Comment(s): vascular bypass bilateral legs, bilateral eyelid surgery for calcium deposits, bilateral laser eye surgery/pt cannot recall reason for surgery. Past Anesthesia/Blood Transfusion Reactions: No Reported Reaction Date of Last Stent Placement:: 07/05/17 Smoking Status: Current every day smoker - Past Family History Father Family Medical History: Cancer, Hypertension, Myocardial Infarction ([place]) Additional Family Medical History / Comment(s): Bone CA Mother Family Medical History: Dementia Additional Family Medical History / Comment(s): Mother at the age of 84 y rs. Medications and Allergies Home Medications Medication Instructions Recorded Confirmed Type Aspirin 81 mg PO DAILY 04/08/15 10/01/20 History Montelukast [Singulair] 10 mg PO HS 04/08/15 10/01/20 History Cholecalciferol (Vitamin D3) 2,000 unit PO DAILY 07/05/17 10/01/20 History [Vitamin D3] Vitamin B Complex 1 cap PO DAILY 07/05/17 10/01/20 History Atorvastatin [Lipitor] 80 mg PO HS #30 tab 07/08/17 10/01/20 Rx Collagenase [Santyl] 1 applic TOPICAL DAILY 10/01/20 10/01/20 History Furosemide [Lasix] 20 mg PO DAILY PRN 10/01/20 10/01/20 History Glimepiride [Amaryl] 2 mg PO DAILY 10/01/20 10/01/20 History HYDROcodone/APAP 10-325MG [[place] 1 tab PO TID 10/01/20 10/01/20 History 10-325] Ibuprofen [Motrin] 800 mg PO Q8H PRN 10/01/20 10/01/20 History Metoprolol Tartrate [Lopressor] 12.5 mg PO DAILY 10/01/20 10/01/20 History Omeprazole 20 mg PO DAILY 10/01/20 10/01/20 History Pregabalin [Lyrica CR] 165 mg PO BID 10/01/20 10/01/20 History Spironolactone 25 mg PO DAILY 10/01/20 10/01/20 History metFORMIN HCL [Glucophage] 500 mg PO BID 10/01/20 10/01/20 History tiZANidine [Zanaflex] 4 mg PO BID PRN 10/01/20 10/01/20 History Allergies Allergy/AdvReac Type Severity Reaction Status Date / Time oxycodone Allergy Hallucinati Verified 10/01/20 21:39 ons tomato Allergy Rash/Hives Verified 10/01/20 21:39 Physical Exam Vitals: Vital Signs Temp Pulse Pulse Resp BP BP Pulse Ox 10/02/20 07:00 98.2 F 76 19 130/70 90 L 10/02/20 05:12 81 18 154/81 98 10/01/20 20:49 81 18 156/89 95 10/01/20 17:52 97.8 F 75 18 163/79 96 Intake and Output 10/01/20 10/02/20 10/02/20 22:59 06:59 14:59 Other: Voiding Method Toilet Weight 113.398 kg 113.398 kg Results CBC & Chem 7: 10/01/20 18:38 10/01/20 18:38 Labs: Abnormal Lab Results - Last 24 Hours (Table) 10/01/20 10/02/20 Range/Units 18:38 07:13 Chloride 110 H (98-107) mmol/L Glucose 63 L (74-99) mg/dL POC Glucose (mg/dL) 101 H (75-99) mg/dL Microbiology - Last 24 Hours (Table) 10/01/20 18:38 Gram Stain - Preliminary Leg - Left Wound Culture - Preliminary Assessment and Plan (1) Non-pressure chronic ulcer of left calf with fat layer exposed Current Visit: Yes Status: Acute Code(s): L97.222 - NON-PRESSURE CHRONIC ULCER OF LEFT CALF W FAT LAYER EXPOSED SNOMED Code(s): 55246544993582681 (2) Type 2 diabetes mellitus with other skin ulcer Current Visit: Yes Status: Acute Code(s): E11.622 - TYPE 2 DIABETES MELLITUS WITH OTHER SKIN ULCER; L98.499 - NON-PRESSURE CHRONIC ULCER OF SKIN OF SITES W UNSP SEVERITY SNOMED Code(s): 642789926 (3) Chronic venous hypertension (idiopathic) with ulcer and inflammation of left lower extremity Current Visit: Yes Status: Acute Code(s): I87.332 - CHRONIC VENOUS HTN W ULCER AND INFLAMMATION OF L LOW EXTREM; L97.929 - NON-PRS CHRONIC ULC UNSP PRT OF L LOW LEG W UNSP SEVERITY SNOMED Code(s): 375549392331453
[2020-10-02] MEDS: INSULIN ASPART (NovoLOG) 100 UNIT/ML VIAL SQ SCH ×3 (12:19→21:19)
[2020-10-02] MEDS: COLLAGENASE 250 UNIT/GM OINTMENT 30 GM TUBE TOPICAL SCH (13:49)
--- NOTE | 2020-10-02 14:00 | P.HPIM ---
History of Present Illness H&P Date: 10/02/20 Chief Complaint: Wound HISTORY OF PRESENT ILLNESS This is a 55 year old female patient of Dr. Noble with past medical history of COPD, fibromyalgia, hypertension, hyperlipidemia, diabetes mellitus type 2, gastroesophageal reflux disease, generalized osteoarthritis, peripheral vascular disease. Patient had bypass surgery of the left lower extremity done approximately 10-12 years ago with basilar surgery at [facility]. Due to complications to the surgery, patient was transferred to [facility] where she underwent a second surgery and nearly needed amputation of the left lower extremity. Patient has a chronic wound to the pretibial area has been following in the wound healing center with Melani Chahal DNP on a week ly basis. She is normally seen there on Thursday. She has completed a recent course of antibiotics according to the patient. Patient was concerned that she had increased pain and odor from the wound. She had contacted the wound center was unable to get appointment yesterday and was instructed to come in the hospital for further evaluation. Recent wound culture was positive for MSSA. Patient denies having any fever or chills. Patient presented to [facility] emergency center and found to be afebrile, heart rate 75, blood pressure 163/79, pulse ox 96% on room air. CBC was unremarkable. Electrolytes unremarkable. Creatinine 0.59. Blood sugar 63. Liver function tests were normal. Tib-fib x-ray revealed large wound on the lateral expect of the lower fibula. No sign of osteomyelitis. No fracture. Patient admitted to the [facility] floor but seen today in the ER waiting for a bed. Consult in place for Wound Center, infectious disease and vascular surgery. REVIEW OF SYSTEMS Constitutional: No fever, no chills, no night sweats. No weight change. No weakness, fatigue or lethargy. No daytime sleepiness. Chronic pain. EENT: No headache. No blurred vision or double vision, no loss of vision. No loss of Hearing, no ringing in the ears, no dizziness. No nasal drainage or congestion. No epistaxis. No sore throat. Lungs: No shortness of breath, cough, no sputum production. No wheezing. Cardiovascular: No chest pain, no lower extremity edema. No palpitations. No paroxysmal nocturnal dyspnea. No orthopnea. No lightheadedness or dizziness. No syncopal episodes. Abdominal: No abdominal pain. No nausea, vomiting. No diarrhea. No constipation. No bloody or tarry stools.. No loss of appetite. Genitourinary: No dysuria, increased frequency, urgency. No urinary retention. Musculoskeletal: No myalgias. No muscle weakness, no gait dysfunction, no frequent falls. No back pain. No neck pain. Integumentary: Large ulcers to the left lower extremity. No rash or pruritus. No unusual bruising. No change in hair or nails. Neurologic: No aphasia. No facial droop. No change in mentation. No head injury. No headache. No paralysis. No paresthesia. Psychiatric: No depression. No anxiety. No mood swings. Endocrine: No abnormal blood sugars. No weight change. SOCIAL HISTORY Patient is a smoker of half a pack per day for 40+ years. She denies any alcohol use. She has tried marijuana for pain but did not seem to help. She denies illicit drug use. She lives at home with her daughter and is single. She does not have oxygen or CPAP, nebulizer at home. FAMILY HISTORY Mother at age 84 from dementia. Father in his late 70s from myocardial infarction with history of bone cancer most likely prostate cancer with metastasis. Patient has total of 4 siblings one sister has diabetes. Patient has one daughter and she has lupus. PHYSICAL EXAMINATION Gen: This is a 55-year-old morbidly obese female. She is resting on the ER stretcher and appears to be uncomfortable secondary to pain. HEENT: Head is atraumatic, normocephalic. Pupils equal, round. Sclerae is anicteric. NECK: Supple. No JVD. No lymphadenopathy. No thyromegaly. LUNGS: Clear to auscultation. No wheezes or rhonchi. No intercostal retractions. HEART: Regular rate and rhythm. No murmur. ABDOMEN: Soft. Bowel sounds are present. No masses. No tenderness. EXTREMITIES: No pedal edema. No calf tenderness. Multiple ulcers to the left pretibial area with serosanguineous drainage and foul order. Surrounding erythema. NEUROLOGICAL: Patient is awake, alert and oriented x3. Cranial nerves 2 through 12 are grossly intact. ASSESSMENT AND PLAN 1. Venous stasis ulcer, failed outpatient treatment. Patient admitted to the [facility] floor, consults with Wound Center, infectious disease, vascular surgery. Antibiotics were changed to Kefzol 2 g IV piggyback every 8 hours and Flagyl 500 mg 3 times daily by infectious disease. Recent wound cultures MSSA. 2. COPD, stable without exacerbation. Continue Singulair. 3. Hypertension. Continue Lopressor 12.5 mg daily, Aldactone 25 mg daily. 4. Peripheral vascular disease. Continue aspirin 81 mg daily, Lipitor 80 mg daily. 5. Diabetes mellitus type 2. Continue metformin 500 mg twice daily, NovoLog scale before meals and at bedtime, A1c. 6. GI prophylaxis. Continue Protonix. 7. Hyperlipidemia. Continue Lipitor 80 mg at bedtime. 8. Chronic pain. Continue Zanaflex 4 mg twice daily as needed, [place] 10 3 times daily. 9. DVT prophylaxis. 10. COVID-19 testing negative. Patient has been hospitalized during a pandemic. Patient will be admitted to the hospital for a minimum of 2 night stay. DISCHARGE PLAN TBD. Impression and plan of care have been directed as dictated by the signing physician. Alayna Acosta nurse practitioner acting as scribe for signing physician. Past Medical History Past Medical History: COPD, Diabetes Mellitus, Myocardial Infarction ([place]) Additional Past Medical History / Comment(s): Chronic left leg wound History of Any Multi-Drug Resistant Organisms: None Reported Past Surgical History: Appendectomy, Tubal Ligation Additional Past Surgical History / Comment(s): vascular bypass bilateral, Past Anesthesia/Blood Transfusion Reactions: No Reported Reaction Past Psychological History: Depression Smoking Status: Current every day smoker Past Alcohol Use History: None Reported Past Drug Use History: None Reported - Past Family History Father Family Medical History: Cancer, Hypertension, Myocardial Infarction ([place]) Additional Family Medical History / Comment(s): Bone CA Mother Family Medical History: Dementia Additional Family Medical History / Comment(s): Mother at the age of 84 yrs. Medications and Allergies Home Medications Medication Instructions Recorded Confirmed Type Aspirin 81 mg PO DAILY 04/08/15 10/01/20 History Montelukast [Singulair] 10 mg PO HS 04/08/15 10/01/20 History Cholecalciferol (Vitamin D3) 2,000 unit PO DAILY 07/05/17 10/01/20 History [Vitamin D3] Vitamin B Complex 1 cap PO DAILY 07/05/17 10/01/20 History Atorvastatin [Lipitor] 80 mg PO HS #30 tab 07/08/17 10/01/20 Rx Collagenase [Santyl] 1 applic TOPICAL DAILY 10/01/20 10/01/20 History Furosemide [Lasix] 20 mg PO DAILY PRN 10/01/20 10/01/20 History Glimepiride [Amaryl] 2 mg PO DAILY 10/01/20 10/01/20 History HYDROcodone/APAP 10-325MG [[place] 1 tab PO TID 10/01/20 10/01/20 History 10-325] Ibuprofen [Motrin] 800 mg PO Q8H PRN 10/01/20 10/01/20 History Metoprolol Tartrate [Lopressor] 12.5 mg PO DAILY 10/01/20 10/01/20 History Omeprazole 20 mg PO DAILY 10/01/20 10/01/20 History Pregabalin [Lyrica CR] 165 mg PO BID 10/01/20 10/01/20 History Spironolactone 25 mg PO DAILY 10/01/20 10/01/20 History metFORMIN HCL [Glucophage] 500 mg PO BID 10/01/20 10/01/20 History tiZANidine [Zanaflex] 4 mg PO BID PRN 10/01/20 10/01/20 History Allergies Allergy/AdvReac Type Severity Reaction Status Date / Time oxycodone Allergy Hallucinati Verified 10/01/20 21:39 ons tomato Allergy Rash/Hives Verified 10/01/20 21:39 Physical Exam Vitals: Vital Signs Temp Pulse Pulse Resp BP BP Pulse Ox 10/02/20 07:00 98.2 F 76 19 130/70 90 L 10/02/20 05:12 81 18 154/81 98 10/01/20 20:49 81 18 156/89 95 10/01/20 17:52 97.8 F 75 18 163/79 96 Intake and Output 10/01/20 10/02/20 10/02/20 22:59 06:59 14:59 Other: Weight 113.398 kg Results CBC & Chem 7: 10/01/20 18:38 10/01/20 18:38 Labs: Abnormal Lab Results - Last 24 Hours (Table) 10/01/20 10/02/20 Range/Units 18:38 07:13 Chloride 110 H (98-107) mmol/L Glucose 63 L (74-99) mg/dL POC Glucose (mg/dL) 101 H (75-99) mg/dL Microbiology - Last 24 Hours (Table) 10/01/20 18:38 Gram Stain - Preliminary Leg - Left Wound Culture - Preliminary
--- NOTE | 2020-10-02 15:42 | P.GSCN ---
History of Present Illness Consult date: 10/02/20 Reason for Consult: left lower extremity ulcers History of present illness: This is a 55-year-old female with history of COPD, chronic venous insufficiency who has been seen in the wound care center for left lower extremity ulcerations for approximately 12 weeks. 2 weeks ago she had a deep tissue culture demonstrating staph aureus which was not treated with antibiotics at that time. She states she has also had attempts at compression therapy but is unable to wear the stockings due to pain at her ankle. She also refuses any debridements in the wound care center due to pain therefore they have to utilize Santyl and collagen to the site. She states she does get lower extremity edema on and off and has a history of the same issue going on with her right lower extremity which ultimately healed. She states she has had workup for arterial disease as well and states she has been told that her blood flow to her foot is good. She has never had reflux study. She denies any fevers, chills, chest pain or shortness of breath. Review of Systems All systems: negative (What is mentioned in the HPI or past medical history) Past Medical History Past Medical History: COPD, Diabetes Mellitus, Myocardial Infarction ([place]) Additional Past Medical History / Comment(s): Chronic left leg wound Last Myocardial Infarction Date:: 07/05/17 History of Any Multi-Drug Resistant Organisms: None Reported Past Surgical History: Appendectomy, Tubal Ligation Additional Past Surgical History / Comment(s): vascular bypass bilateral, Past Anesthesia/Blood Transfusion Reactions: No Reported Reaction Date of Last Stent Placement:: 07/05/17 Past Psychological History: Depression Smoking Status: Current every day smoker Past Alcohol Use History: None Reported Past Drug Use History: None Reported - Past Family History Father Family Medical History: Cancer, Hypertension, Myocardial Infarction ([place]) Additional Family Medical History / Comment(s): Bone CA Mother Family Medical History: Dementia Additional Family Medical History / Comment(s): Mother at the age of 84 yrs. Medications and Allergies Home Medications Medication Instructions Recorded Confirmed Type Aspirin 81 mg PO DAILY 04/08/15 10/01/20 History Montelukast [Singulair] 10 mg PO HS 04/08/15 10/01/20 History Cholecalciferol (Vitamin D3) 2,000 unit PO DAILY 07/05/17 10/01/20 History [Vitamin D3] Vitamin B Complex 1 cap PO DAILY 07/05/17 10/01/20 History Atorvastatin [Lipitor] 80 mg PO HS #30 tab 07/08/17 10/01/20 Rx Collagenase [Santyl] 1 applic TOPICAL DAILY 10/01/20 10/01/20 History Furosemide [Lasix] 20 mg PO DAILY PRN 10/01/20 10/01/20 History Glimepiride [Amaryl] 2 mg PO DAILY 10/01/20 10/01/20 History HYDROcodone/APAP 10-325MG [[place] 1 tab PO TID 10/01/20 10/01/20 History 10-325] Ibuprofen [Motrin] 800 mg PO Q8H PRN 10/01/20 10/01/20 History Metoprolol Tartrate [Lopressor] 12.5 mg PO DAILY 10/01/20 10/01/20 History Omeprazole 20 mg PO DAILY 10/01/20 10/01/20 History Pregabalin [Lyrica CR] 165 mg PO BID 10/01/20 10/01/20 History Spironolactone 25 mg PO DAILY 10/01/20 10/01/20 History metFORMIN HCL [Glucophage] 500 mg PO BID 10/01/20 10/01/20 History tiZANidine [Zanaflex] 4 mg PO BID PRN 10/01/20 10/01/20 History Allergies Allergy/AdvReac Type Severity Reaction Status Date / Time oxycodone Allergy Hallucinati Verified 10/01/20 21:39 ons tomato Allergy Rash/Hives Verified 10/01/20 21:39 Surgical - Exam Vital Signs Temp Pulse Resp BP Pulse Ox 97.8 F 75 18 163/79 96 10/01/20 17:52 10/01/20 17:52 10/01/20 17:52 10/01/20 17:52 10/01/20 17:52 nonhealing ulceration to the left lateral leg with fatty layer exposure. Cluster of 5 ulcerations. Significant amount of slough seen within the wound bed and no granulation seen. Patient has serous drainage to the site. The wound measures 8.6cm length x 5.8cm width x 0.4cm depth. There is Fat Layer (Subcutaneous Tissue) Exposed exposed. There is no tunneling or undermining noted. There is a medium amount of serosanguineous drainage noted. - General well developed, well nourished, moderate pain, obese - Eyes PERRL, normal ocular movement - ENT normal pinna - Neck no masses - Cardiovascular Rhythm: regular - Abdomen Abdomen: soft, non tender, no masses, no distended - Neurologic normal coordination, normal sensation - Psychiatric oriented to time, oriented to person, oriented to place, speech is normal Results - Labs 10/01/20 18:38 10/01/20 18:38 Abnormal Lab Results - Last 24 Hours (Table) 10/01/20 10/02/20 10/02/20 Range/Units 18:38 07:13 11:31 Chloride 110 H (98-107) mmol/L Glucose 63 L (74-99) mg/dL POC Glucose (mg/dL) 101 H 149 H (75-99) mg/dL Microbiology - Last 24 Hours (Table) 10/01/20 18:38 Gram Stain - Preliminary Leg - Left Wound Culture - Preliminary Diabetes panel 10/01/20 Range/Units 18:38 Sodium 143 (137-145) mmol/L Potassium 3.7 (3.5-5.1) mmol/L Chloride 110 H (98-107) mmol/L Carbon Dioxide 26 (22-30) mmol/L BUN 7 (7-17) mg/dL Creatinine 0.59 (0.52-1.04) mg/dL Glucose 63 L (74-99) mg/dL Calcium 9.3 (8.4-10.2) mg/dL AST 30 (14-36) U/L ALT 31 (4-34) U/L Alkaline Phosphatase 103 (38-126) U/L Total Protein 6.6 (6.3-8.2) g/dL Albumin 4.0 (3.5-5.0) g/dL Calcium panel 10/01/20 Range/Units 18:38 Calcium 9.3 (8.4-10.2) mg/dL Albumin 4.0 (3.5-5.0) g/dL Pituitary panel 10/01/20 Range/Units 18:38 Sodium 143 (137-145) mmol/L Potassium 3.7 (3.5-5.1) mmol/L Chloride 110 H (98-107) mmol/L Carbon Dioxide 26 (22-30) mmol/L BUN 7 (7-17) mg/dL Creatinine 0.59 (0.52-1.04) mg/dL Glucose 63 L (74-99) mg/dL Calcium 9.3 (8.4-10.2) mg/dL Adrenal panel 10/01/20 Range/Units 18:38 Sodium 143 (137-145) mmol/L Potassium 3.7 (3.5-5.1) mmol/L Chloride 110 H (98-107) mmol/L Carbon Dioxide 26 (22-30) mmol/L BUN 7 (7-17) mg/dL Creatinine 0.59 (0.52-1.04) mg/dL Glucose 63 L (74-99) mg/dL Calcium 9.3 (8.4-10.2) mg/dL Total Bilirubin 0.6 (0.2-1.3) mg/dL AST 30 (14-36) U/L ALT 31 (4-34) U/L Alkaline Phosphatase 103 (38-126) U/L Total Protein 6.6 (6.3-8.2) g/dL Albumin 4.0 (3.5-5.0) g/dL Assessment and Plan Assessment: 1. Chronic venous insufficiency with left lower extremity ulceration 2. Nonpressure chronic ulcer of left calf with fat layer exposure 3. Type 2 diabetes with other skin ulcer 4. Morbid Obesity Plan: We will schedule patient for formal debridement tomorrow afternoon with Dr. Khalil for her left lower extremity. Continue antibiotics and local wound care. Patient will need to elevate her lower extremities as well as compression therapy would be beneficial if she is able to tolerate.
[2020-10-02] MEDS: metroNIDAZOLE 500 MG TAB PO SCH ×2 (16:09→21:17)
--- NOTE | 2020-10-02 16:25 | CONS ---
CONSULTATION DATE OF SERVICE: 10/02/2020. REASON FOR CONSULTATION: Left lower extremity wound and cellulitis. HISTORY OF PRESENT ILLNESS: The patient is a 55-year-old female with a past medical history significant for chronic nonhealing wound to the left lower extremity for which the patient has had for about 3 months. The patient does follow with Melani at the [facility] and apparently has been treated with multiple modalities initially with Aquacel Silver dressing recently has been mostly with Santyl. The patient apparently recently did have a culture done on 09/07, which did grow anaerobes and MSSA, which apparently has been treated with oral antibiotic. The patient did not remember what antibiotic she took for it. The patient is now presenting to [facility] ER for evaluation of worsening pain, swelling, redness and nonhealing of her left leg wound. The patient mentioned nonhealing for almost 3 months now. The patient complaining of pain to the left leg wound to be throbbing, intensity almost 10/10 with no radiation. Denies having any foul-smelling drainage from it though. With these symptoms, the patient has been evaluated by the ER physician. On arrival to the ER, the patient was afebrile and no fever has been recorded. Subsequently the patient did have x-rays of the leg which did show some deep ulcer to the left leg. No evidence of any bony changes. Kidney function was normal. White count was normal. Local culture has been obtained. She was started on vancomycin and Zosyn. Infectious Disease consulted for further management of antibiotic therapy. REVIEW OF SYSTEMS: Positive points have been mentioned in HPI. Rest of systems are negative. PAST MEDICAL HISTORY: COPD, diabetes mellitus, WI, and left leg venous stasis ulcer with secondary cellulitis. PAST SURGICAL HISTORY: Appendectomy, tubal ligation, and debridement of the left leg wound. SOCIAL HISTORY: Current everyday smoker. Denies drinking or drug use. FAMILY HISTORY: Father with history of WI and bone cancer. ALLERGIES: OXYCODONE. MEDICATIONS: Medications include the patient is currently on [place], aspirin, Lipitor, vitamin D3, Santyl, Lasix, glimepiride, Dilaudid, NovoLog, Glucophage, Lopressor, Singulair, Zosyn and vancomycin. PHYSICAL EXAMINATION: Her blood pressure is 130/70 with a pulse of 76, temperature 98.2. She is 90% on room air. General description is a middle-aged female lying in bed in no distress. No tachypnea or accessory muscles of respiration use. HEENT: Examination shows no pallor or scleral icterus. Oral mucous membrane is dry. NECK: Trachea central. No thyromegaly. LUNGS: Unlabored breathing, clear to auscultation anterior. No wheeze or crackles. HEART: S1, S2. Regular rate and rhythm. ABDOMEN: Soft, no tenderness. Left leg did have an ulceration with significant slough tissue. No significant redness or foul-smelling noticed. NEUROLOGICAL: Patient is awake, alert, oriented x3. Mood and affect normal. LABS: Hemoglobin 13.5, white count 6.3, BUN of 7, creatinine 0.59. DIAGNOSTIC IMPRESSION: Patient with chronic nonhealing wound to the left leg for which the patient had for almost 3 months now and be tried at the [facility] now with significant component of slough tissue and some surrounding cellulitis likely from a gram-positive skin timmy with recent culture positive for MSSA, anaerobes could be the likely pathogen. PLAN: 1. Patient will benefit from a surgical debridement of this wound and deep cultures. 2. We will discontinue the vancomycin and Zosyn facility and start the patient Cefazolin and oral Flagyl combination. 3. Local wound care with Santyl. 4. We will follow on clinical condition and culture to further adjust medication if needed. Thank you for this consultation. Will follow this patient along with you. MMODL / IJN: [id number] /
[2020-10-02 16:55] LABS: Glucose,Whole Blood 101 mg/dL (75-99)
[2020-10-02 20:13] LABS: Glucose,Whole Blood 115 mg/dL (75-99)
[2020-10-02] MEDS: MONTELUKAST 10 MG TAB PO SCH (21:17)
[2020-10-02] MEDS: ATORVASTATIN 80 MG TAB PO SCH (21:17)
[2020-10-02 23:38] LABS: Hemoglobin A1C 7.9 % (4.0-6.0)
[2020-10-03] MEDS: HYDROmorphone 1 MG/ML 1 ML SYRINGE IVP PRN ×4 (01:32→15:52)
[2020-10-03] MEDS: LACTATED RINGERS 1,000 ML IV SCH ×3 (01:37→17:13)
[2020-10-03] MEDS: tiZANidine 4 MG TAB PO PRN (01:37)
[2020-10-03] MEDS: PREGABALIN PO SCH ×3 (02:32→23:59)
[2020-10-03 06:57] LABS: Glucose,Whole Blood 91 mg/dL (75-99)
[2020-10-03] MEDS ORDERED: ONDANSETRON 4 MG/2 ML VIAL IVP PRN (07:00)
[2020-10-03] MEDS: INSULIN ASPART (NovoLOG) 100 UNIT/ML VIAL SQ SCH ×4 (07:01→21:55)
[2020-10-03] MEDS: ASPIRIN 81 MG PO SCH ×2 (07:42→07:49)
[2020-10-03] MEDS: GLIMEPIRIDE 2 MG TAB PO SCH (07:43)
[2020-10-03] MEDS: metFORMIN 500 MG TAB PO SCH (07:43)
[2020-10-03] MEDS: PANTOPRAZOLE 40 MG TABLET PO SCH (07:43)
[2020-10-03] MEDS: CHOLECALCIFEROL 25 MCG (1000 IU) TABLET PO SCH (07:43)
[2020-10-03] MEDS: SPIRONOLACTONE 25 MG TAB PO SCH (07:43)
[2020-10-03] MEDS: metroNIDAZOLE 500 MG TAB PO SCH ×3 (07:43→21:53)
[2020-10-03] MEDS: HYDROcodone/APAP 10-325MG 1 EACH TAB PO SCH ×3 (07:44→21:54)
[2020-10-03] MEDS: COLLAGENASE 250 UNIT/GM OINTMENT 30 GM TUBE TOPICAL SCH (07:46)
[2020-10-03] MEDS: METOPROLOL TARTRATE 12.5 MG TAB PO SCH (07:49)
--- NOTE | 2020-10-03 08:54 | XR ---
EXAMINATION TYPE: XR chest 1V DATE OF EXAM: 10/03/2020 COMPARISON: 07/05/2017 HISTORY: 55-year-old female preoperative evaluation TECHNIQUE: Single frontal view of the chest is obtained. FINDINGS: Heart mildly enlarged. Mild interstitial prominence. No consolidation or pleural effusion. IMPRESSION: Mild cardiomegaly. Mild interstitial prominence. Correlate to exclude mild pulmonary vascular congest ion. No airspace disease.
[2020-10-03] MEDS: NICOTINE 14MG/24HR PATCH TRANSDERM SCH (10:07)
[2020-10-03 11:09] LABS: Glucose,Whole Blood 81 mg/dL (75-99)
--- NOTE | 2020-10-03 11:10 | P.PN ---
Subjective Progress Note Date: 10/03/20 HISTORY OF PRESENT ILLNESS This is a 55 year old female patient of Dr. Noble with past medical history of COPD, fibromyalgia, hypertension, hyperlipidemia, diabetes mellitus type 2, g astroesophageal reflux disease, generalized osteoarthritis, peripheral vascular disease. Patient had bypass surgery of the left lower extremity done approximately 10-12 years ago with basilar surgery at [facility]. Due to complications to the surgery, patient was transferred to [facility] where she underwent a second surgery and nearly needed amputation of the left lower extremity. Patient has a chronic wound to the pretibial area has been following in the wound healing center with Melani Chahal DNP on a weekly basis. She is normally seen there on Thursday. She has completed a recent course of antibiotics according to the patient. Patient was concerned that she had increased pain and odor from the wound. She had contacted the wound center was unable to get appointment yesterday and was instructed to come in the hospital for further evaluation. Recent wound culture was positive for MSSA. Patient denies having any fever or chills. Patient presented to [facility] emergency center and found to be afebrile, heart rate 75, blood pressure 163/79, pulse ox 96% on room air. CBC was unremarkable. Electrolytes unremarkable. Creatinine 0.59. Blood sugar 63. Liver function tests were normal. Tib-fib x-ray revealed large wound on the lateral expect of the lower fibula. No sign of osteomyelitis. No fracture. Patient admitted to the [facility] floor but seen today in the ER waiting for a bed. Consult in place for Wound Center, infectious disease and vascular surgery. 10/03: Patient has been seen by vascular surgery and is scheduled for I&D today. Wound culture is in progress. Patient is complaining of soreness to the left lo wer leg. She has on the phone with Dr. Tirado's office regarding pain medication issue. Discussed nicotine patch and patient is agreeable to try using a patch here and will continue after discharge. Patient has been afebrile, heart rate 66, blood pressure 131/81, pulse ox 92% on room air. Creat inine is 2.38 which is significantly higher today from yesterday of 0.59. This may be secondary to vancomycin which is been discontinued. Metformin will be discontinued. A1C 7.9. Wheelchair will be ordered by mental health case manager because patient requires a wheelchair to complete ADLs which is unable to be done with a cane or walker because of venous stasis ulcer to the left lower leg and peripheral vascular disease. REVIEW OF SYSTEMS Constitutional: No fever, no chills, no night sweats. No weight change. No weakness, fatigue or lethargy. No daytime sleepiness. Chronic pain. EENT: No headache. No blurred vision or double vision, no loss of vision. No loss of Hearing, no ringing in the ears, no dizziness. No nasal drainage or congestion. No epistaxis. No sore throat. Lungs: No shortness of breath, cough, no sputum production. No wheezing. Cardiovascular: No chest pain, no lower extremity edema. No palpitations. No paroxysmal nocturnal dyspnea. No orthopnea. No lightheadedness or dizziness. No syncopal episodes. Abdominal: No abdominal pain. No nausea, vomiting. No diarrhea. No constipation. No bloody or tarry stools.. No loss of appetite. Genitourinary: No dysuria, increased frequency, urgency. No urinary retention. Musculoskeletal: No myalgias. No muscle weakness, no gait dysfunction, no frequent falls. No back pain. No neck pain. Integumentary: Large ulcers to the left lower extremity. No rash or pruritus. No unusual bruising. No change in hair or nails. Neurologic: No aphasia. No facial droop. No change in mentation. No head injury. No headache. No paralysis. No paresthesia. Psychiatric: No depression. No anxiety. No mood swings. Endocrine: No abnormal blood sugars. No weight change. PHYSICAL EXAMINATION Gen: This is a 55-year-old morbidly obese female. She is resting on the ER stretcher and appears to be uncomfortable secondary to pain. HEENT: Head is atraumatic, normocephalic. Pupils equal, round. Sclerae is anicteric. NECK: Supple. No JVD. No lymphadenopathy. No thyromegaly. LUNGS: Clear to auscultation. No wheezes or rhonchi. No intercostal retractions. HEART: Regular rate and rhythm. No murmur. ABDOMEN: Soft. Bowel sounds are present. No masses. No tenderness. EXTREMITIES: No pedal edema. No calf tenderness. Multiple ulcers to the left pretibial area with serosanguineous drainage and foul order. Surrounding erythema. NEUROLOGICAL: Patient is awake, alert and oriented x3. Cranial nerves 2 through 12 are grossly intact. ASSESSMENT AND PLAN 1. Venous stasis ulcer, failed outpatient treatment. Patient admitted to the [facility] floor, consults with Wound Center, infectious disease, vascular surgery. Continue Kefzol 2 g IV piggyback every 8 hours and Flagyl 500 mg 3 times daily by infectious disease. Recent wound cultures MSSA. 2. Acute kidney injury most likely secondary to vancomycin which has been discontinued. Metformin will be discontinued. Avoid nephrotoxic agents. Repeat BMP in the morning. 3. COPD, stable without exacerbation. Continue Singulair. 4. Hypertension. Continue Lopressor 12.5 mg daily, Aldactone 25 mg daily. 5. Peripheral vascular disease. Continue aspirin 81 mg daily, Lipitor 80 mg daily. 6. Diabetes mellitus type 2. Metformin discontinued, continue NovoLog scale before meals and at bedtime, A1c 7.9. 7. GI prophylaxis. Continue Protonix. 8. Hyperlipidemia. Continue Lipitor 80 mg at bedtime. 9. Chronic pain. Continue Zanaflex 4 mg twice daily as needed, [place] 10 3 t imes daily. 10. DVT prophylaxis. Heparin subcu. 10. COVID-19 testing negative. Patient has been hospitalized during a pandemic. DISCHARGE PLAN TBD. Wheelchair ordered. Impression and plan of care have been directed as dictated by the signing physician. Alayna Acosta nurse practitioner acting as scribe for signing physician. Objective - Vital Signs Vital signs: Vital Signs Temp 98.1 F 10/03/20 08:14 Pulse 66 10/03/20 08:14 Resp 19 10/03/20 08:14 BP 131/81 10/03/20 08:14 Pulse Ox 92 L 10/03/20 08:14 Intake & Output 10/02/20 10/03/20 10/03/20 18:59 06:59 18:59 Intake Total 600 1180 Balance 600 1180 Weight 113.398 kg Intake: IV 600 Sodium Chloride 0.9% 1, 600 000 ml @ 75 mls/hr IV . [id number] ONE Rx#:[id number] Intake, IV Titration 1180 Amount Lactated Ringers 1,000 ml 380 @ 20 mls/hr IV .Q24H [facility] Rx#:[id number] Piperacillin-Tazobactam 3 100 .375 gm In Sodium Chloride 0.9% 100 ml @ 25 mls/hr IVPB Q8H [facility] Rx#: [id number] Sodium Chloride 0.9% 1, 450 000 ml @ 75 mls/hr IV . [id number] ONE Rx#:[id number] Vancomycin 1,750 mg In 250 Sodium Chloride 0.9% 250 ml @ 166.67 mls/hr IVPB Q12H [facility] Rx#:[id number] Other: Voiding Method Toilet Toilet # Voids 1 - Labs CBC & Chem 7: 10/01/20 18:38 10/03/20 07:13 Labs: Abnormal Lab Results - Last 24 Hours (Table) 10/01/20 10/02/20 10/02/20 Range/Units 18:38 11:31 16:53 Creatinine (0.52-1.04) mg/dL POC Glucose (mg/dL) 149 H 101 H (75-99) mg/dL Hemoglobin A1c 7.9 H (4.0-6.0) % 10/02/20 10/03/20 Range/Units 20:11 07:13 Creatinine 2.38 H (0.52-1.04) mg/dL POC Glucose (mg/dL) 115 H (75-99) mg/dL Hemoglobin A1c (4.0-6.0) % Microbiology - Last 24 Hours (Table) 10/01/20 18:38 Blood Culture - Preliminary Blood No Growth after 24 hours 10/01/20 18:38 Gram Stain - Preliminary Leg - Left Wound Culture - Preliminary Presumptive Staph aureus 10/01/20 18:38 Blood Culture - Preliminary Blood No Growth after 24 hours
[2020-10-03 14:24] VITALS: BMI 42.9
[2020-10-03] MEDS: HEPARIN SODIUM,PORCINE/PF 5,000 UNIT/0.5 ML SYRINGE SQ SCH ×2 (15:51→23:52)
[2020-10-03] MEDS ORDERED: KETAMINE 10 MG/ML 20 ML VIAL ONE (17:10)
[2020-10-03] MEDS ORDERED: ONDANSETRON 4 MG/2 ML VIAL ONE (17:10)
[2020-10-03] MEDS ORDERED: diphenhydrAMINE 50 MG/ML 1 ML VIAL ONE (17:10)
[2020-10-03] MEDS ORDERED: PROPOFOL 10 MG/ML 20 ML VIAL IV ONE (17:10)
[2020-10-03] MEDS ORDERED: MIDAZOLAM 2 MG/2 ML VIAL ONE (17:10)
[2020-10-03] MEDS ORDERED: fentaNYL (PF) 50 MCG/ML 2 ML AMP ONE (17:10)
[2020-10-03 17:12] LABS: Glucose,Whole Blood 82 mg/dL (75-99)
--- NOTE | 2020-10-03 17:28 | PN ---
PROGRESS NOTE DATE OF SERVICE: 10/03/2020 REASON FOR FOLLOWUP: Left lower extremity wound and cellulitis. INTERVAL HISTORY: Patient is currently afebrile. The patient is breathing comfortably. Still complaining of pain to the left leg wound, but no worsening. No chest pain or shortness of breath or cough. No abdominal pain or diarrhea. PHYSICAL EXAMINATION: Blood pressure 131/81, pulse of 66, temperature 98.1. She is 92% on room air. General description: The patient is a middle-aged female lying in bed in no distress. Respiratory system: Unlabored breathing. Clear to auscultation anteriorly. Heart S1, S2. Regular rate and rhythm. Abdomen soft, no tenderness. Left leg is currently dressed up. No obvious drainage on the dressing. Wound culture showing a presumptive Staph aureus. Blood culture so far negative. DIAGNOSTIC IMPRESSION AND PLAN: Patient with chronic nonhealing wound to the left lower extremity. Awaiting surgical debridement and deep cultures. In view of the will also order a bone scan. Patient is covered with cefazolin, dose cut back by pharmacy along with Flagyl. Local care with Santyl and continue supportive care. MMODL / IJN: [id number] /
--- NOTE | 2020-10-03 17:51 | P.OP ---
Date of Procedure: 10/03/20 Description of Procedure: Preoperative diagnosis: [Left lower extremity nonhealing wound, venous insufficiency, edema] Postoperative diagnosis: Same Procedure: [ Sharp excisional debridement of left lower extremity 1. Distal leg measuring 1.1 x 1.2 x 0.1 to subcutaneous tissue 2. Anterior leg 11.5 x 9 x 0.3 to muscle Punch biopsy of wound Surgeon: Genet Khalil D.O. EBL: [Less than 10 mL] IV fluids: [See records] Urine output: [None] Drains: [None] Complications: [None immediately apparent] Condition: [Stable to recovery] Operative indication and findings: [The patient is a 55-year-old female currently being seen in the wound care facility for nonhealing left lower extremity wound. She came in due to increasing tenderness to the wound itself and operative formal treatment was requested. Risks and benefits were discussed. She seemingly understood and was willing to proceed as such] Procedure in detail: [Patient was taken to the operative suite and placed in supine position. The left lower extremity was prepped and draped in usual sterile fashion. A preprocedure timeout was performed, all parties were in agreement. Using a curet the areas of the wounds were debrided of their slough and fibrinous tissues. Given that appearance of the wound and his chronic nature there are 2 spots that were decidedly biopsied with a punch biopsy tool. Measurements were as above. Hemostasis was controlled with pressure. Dressings were placed. The patient was transferred to recovery in stable condition]
[2020-10-03 18:03] LABS: Glucose,Whole Blood 85 mg/dL (75-99)
[2020-10-03] MEDS ORDERED: HYDROmorphone 1 MG/ML 1 ML SYRINGE IVP ONE ×3 (18:05→18:21)
[2020-10-03] MEDS ORDERED: ALBUTEROL NEBULIZED 2.5 MG/3 ML INHALATION ONE (18:08)
[2020-10-03] MEDS ORDERED: VANCOMYCIN TROUGH DUE 1 EACH MISC MISCELLANE ONE (19:30)
[2020-10-03 20:22] LABS: Glucose,Whole Blood 95 mg/dL (75-99)
[2020-10-03] MEDS: MONTELUKAST 10 MG TAB PO SCH (21:53)
[2020-10-03] MEDS: ATORVASTATIN 80 MG TAB PO SCH (21:53)
[2020-10-04 07:29] LABS: Glucose,Whole Blood 59 mg/dL (75-99)
[2020-10-04] MEDS: METOPROLOL TARTRATE 12.5 MG TAB PO SCH (07:38)
[2020-10-04] MEDS: CHOLECALCIFEROL 25 MCG (1000 IU) TABLET PO SCH (07:38)
[2020-10-04] MEDS: HYDROcodone/APAP 10-325MG 1 EACH TAB PO SCH ×2 (07:38→15:11)
[2020-10-04] MEDS: NICOTINE 14MG/24HR PATCH TRANSDERM SCH (07:38)
[2020-10-04] MEDS: PANTOPRAZOLE 40 MG TABLET PO SCH (07:38)
[2020-10-04] MEDS: SPIRONOLACTONE 25 MG TAB PO SCH (07:38)
[2020-10-04] MEDS: metroNIDAZOLE 500 MG TAB PO SCH ×3 (07:39→22:11)
[2020-10-04] MEDS: INSULIN ASPART (NovoLOG) 100 UNIT/ML VIAL SQ SCH ×4 (07:39→22:10)
[2020-10-04] MEDS: ASPIRIN 81 MG PO SCH (07:39)
[2020-10-04] MEDS: HEPARIN SODIUM,PORCINE/PF 5,000 UNIT/0.5 ML SYRINGE SQ SCH ×2 (07:39→15:12)
[2020-10-04] MEDS: PREGABALIN PO SCH ×2 (07:40→22:10)
[2020-10-04] MEDS: GLIMEPIRIDE 2 MG TAB PO SCH (07:40)
[2020-10-04] MEDS: COLLAGENASE 250 UNIT/GM OINTMENT 30 GM TUBE TOPICAL SCH (07:40)
[2020-10-04] MEDS: HYDROmorphone 1 MG/ML 1 ML SYRINGE IVP PRN ×3 (07:41→15:12)
[2020-10-04 07:43] LABS: Glucose,Whole Blood 60 mg/dL (75-99)
[2020-10-04 07:45] LABS: Glucose,Whole Blood 82 mg/dL (75-99)
[2020-10-04] MEDS ORDERED: IPRATROPIUM-ALBUTEROL 3 ML NEB INHALATION PRN (08:33)
[2020-10-04] MEDS: IPRATROPIUM-ALBUTEROL 3 ML NEB INHALATION SCH ×2 (11:00→19:16)
[2020-10-04 11:58] LABS: Glucose,Whole Blood 119 mg/dL (75-99)
--- NOTE | 2020-10-04 12:04 | P.PN ---
Subjective Progress Note Date: 10/04/20 HISTORY OF PRESENT ILLNESS This is a 55 year old female patient of Dr. Noble with past medical history of COPD, fibromyalgia, hypertension, hyperlipidemia, diabetes mellitus type 2, g astroesophageal reflux disease, generalized osteoarthritis, peripheral vascular disease. Patient had bypass surgery of the left lower extremity done approximately 10-12 years ago with basilar surgery at [facility]. Due to complications to the surgery, patient was transferred to [facility] where she underwent a second surgery and nearly needed amputation of the left lower extremity. Patient has a chronic wound to the pretibial area has been following in the wound healing center with Melani Chahal DNP on a weekly basis. She is normally seen there on Thursday. She has completed a recent course of antibiotics according to the patient. Patient was concerned that she had increased pain and odor from the wound. She had contacted the wound center was unable to get appointment yesterday and was instructed to come in the hospital for further evaluation. Recent wound culture was positive for MSSA. Patient denies having any fever or chills. Patient presented to [facility] emergency center and found to be afebrile, heart rate 75, blood pressure 163/79, pulse ox 96% on room air. CBC was unremarkable. Electrolytes unremarkable. Creatinine 0.59. Blood sugar 63. Liver function tests were normal. Tib-fib x-ray revealed large wound on the lateral expect of the lower fibula. No sign of osteomyelitis. No fracture. Patient admitted to the [facility] floor but seen today in the ER waiting for a bed. Consult in place for Wound Center, infectious disease and vascular surgery. 10/03: Patient has been seen by vascular surgery and is scheduled for I&D today. Wound culture is in progress. Patient is complaining of soreness to the left lo wer leg. She has on the phone with Dr. Tirado's office regarding pain medication issue. Discussed nicotine patch and patient is agreeable to try using a patch here and will continue after discharge. Patient has been afebrile, heart rate 66, blood pressure 131/81, pulse ox 92% on room air. Creat inine is 2.38 which is significantly higher today from yesterday of 0.59. This may be secondary to vancomycin which is been discontinued. Metformin will be discontinued. A1C 7.9. Wheelchair will be ordered by director of casework services because patient requires a wheelchair to complete ADLs which is unable to be done with a cane or walker because of venous stasis ulcer to the left lower leg and peripheral vascular disease. 10/04: The patient is status post a [place] of the wound to the left lower extremity done by Dr. Khalil yesterday. Patient stated a very painful but she has received Dilaudid and [place]. She does seem to have some increased shortness of breath and wheezing for which nebulizer treatments will be started. Patient has been seen by Dr. Dunn and a bone scan has been ordered for today and patient is continued on Kefzol. Dosing Has Been Adjusted by Pharmacy. Patient is agreeable that she will stop smoking after she leaves the hospital. Patient has been afebrile, heart rate 84, blood pressure 111/67, pulse ox 92% on 3 L nasal cannula. Blood sugars have been on the lower side with lowest at 59, mostly in the 80s. Hemoglobin A1c came back at 7.9. Glimepiride was decreased to 1 mg daily. Local wound care is scant old. Anticipate need for IV antibiotics if bone scan is positive. BMP results are not available at 12 PM. REVIEW OF SYSTEMS Constitutional: No fever, no chills, no night sweats. No weight change. No weakness, fatigue or lethargy. No daytime sleepiness. Chronic pain. EENT: No headache. No blurred vision or double vision, no loss of vision. No loss of Hearing, no ringing in the ears, no dizziness. No nasal drainage or congestion. No epistaxis. No sore throat. Lungs: No shortness of breath, cough, no sputum production. No wheezing. Cardiovascular: No chest pain, no lower extremity edema. No palpitations. No paroxysmal nocturnal dyspnea. No orthopnea. No lightheadedness or dizziness. No syncopal episodes. Abdominal: No abdominal pain. No nausea, vomiting. No diarrhea. No constipation. No bloody or tarry stools.. No loss of appetite. Genitourinary: No dysuria, increased frequency, urgency. No urinary retention. Musculoskeletal: No myalgias. No muscle weakness, no gait dysfunction, no frequent falls. No back pain. No neck pain. Integumentary: Large ulcers to the left lower extremity with pain. No rash or pruritus. No unusual bruising. No change in hair or nails. Neurologic: No aphasia. No facial droop. No change in mentation. No head injury. No headache. No paralysis. No paresthesia. Psychiatric: No depression. No anxiety. No mood swings. Endocrine: No abnormal blood sugars. No weight change. PHYSICAL EXAMINATION Gen: This is a 55-year-old morbidly obese female. She is resting in bed and appears to be uncomfortable secondary to pain. HEENT: Head is atraumatic, normocephalic. Pupils equal, round. Sclerae is anicteric. NECK: Supple. No JVD. No lymphadenopathy. No thyromegaly. LUNGS: Clear to auscultation. No wheezes or rhonchi. No intercostal retractions. HEART: Regular rate and rhythm. No murmur. ABDOMEN: Soft. Bowel sounds are present. No masses. No tenderness. EXTREMITIES: No pedal edema. No calf tenderness. Dressing in place to the left lower extremity for pretibial ulcers. NEUROLOGICAL: Patient is awake, alert and oriented x3. Cranial nerves 2 through 12 are grossly intact. ASSESSMENT AND PLAN 1. Venous stasis ulcer, failed outpatient treatment. [facility] floor, consults with Wound Center, infectious disease, vascular surgery appreciated. Continue Kefzol 1 g IV piggyback every 12 hours and Flagyl 500 mg 3 times daily by infectious disease. Recent wound cultures MSSA. Continue local wound care with Santyl. 2. Acute kidney injury most likely secondary to vancomycin which has been discontinued. Metformin will be discontinued. Avoid nephrotoxic agents. Repea t BMP in the morning. 3. COPD, stable without exacerbation. Continue Singulair. 4. Hypertension. Continue Lopressor 12.5 mg daily, Aldactone 25 mg daily. 5. Peripheral vascular disease. Continue aspirin 81 mg daily, Lipitor 80 mg daily. 6. Diabetes mellitus type 2. Metformin discontinued, continue NovoLog scale before meals and at bedtime, A1c 7.9. 7. GI prophylaxis. Continue Protonix. 8. Hyperlipidemia. Continue Lipitor 80 mg at bedtime. 9. Chronic pain. Continue Zanaflex 4 mg twice daily as needed, [place] 10 3 times daily. 10. DVT prophylaxis. Heparin subcu. 10. COVID-19 testing negative. Patient has been hospitalized during a pandemic. DISCHARGE PLAN Home with [facility]. Wheelchair ordered. Impression and plan of care have been directed as dictated by the signing physician. Alayna Acosta nurse practitioner acting as scribe for signing physician. Objective - Vital Signs Vital signs: Vital Signs Temp 99.2 F 10/04/20 08:00 Pulse 84 10/04/20 08:00 Resp 20 10/04/20 08:00 BP 111/67 10/04/20 08:00 Pulse Ox 92 L 10/04/20 08:00 Intake & Output 10/03/20 10/04/20 10/04/20 18:59 06:59 18:59 Intake Total 410 290 Output Total 5 200 Balance 405 90 Weight 113.398 kg Intake: IV 200 Intake, IV Titration 210 290 Amount Lactated Ringers 1,000 ml 160 240 @ 20 mls/hr IV .Q24H [facility] Rx#:[id number] ceFAZolin 1,000 mg In 50 Sodium Chloride 0.9% 50 ml @ 100 mls/hr IVPB Q12HR [facility] Rx#:[id number] ceFAZolin 2 gm In Sodium 50 Chloride 0.9% 50 ml @ 100 mls/hr IVPB Q8HR [facility] Rx# :[id number] Output: Urine 200 Estimated Blood Loss 5 Other: Voiding Method Toilet # Voids 2 1 - Labs CBC & Chem 7: 10/01/20 18:38 10/03/20 07:13 Labs: Abnormal Lab Results - Last 24 Hours (Table) 10/03/20 10/03/20 10/04/20 Range/Units 07:13 07:13 07:20 ESR 40 H (0-30) mm/Hr POC Glucose (mg/dL) 59 L (75-99) mg/dL C-Reactive Protein 3.0 H (0.0-0.8) mg/dL 10/04/20 Range/Units 07:33 ESR (0-30) mm/Hr POC Glucose (mg/dL) 60 L (75-99) mg/dL C-Reactive Protein (0.0-0.8) mg/dL Microbiology - Last 24 Hours (Table) 10/01/20 18:38 Blood Culture - Preliminary Blood No Growth after 48 hours 10/01/20 18:38 Blood Culture - Preliminary Blood No Growth after 48 hours 10/01/20 18:38 Gram Stain - Final Leg - Left Wound Culture - Final Staphylococcus aureus
--- NOTE | 2020-10-04 12:50 | P.PN ---
Subjective Progress Note Date: 10/04/20 Principal diagnosis: Left Lower extremity infected wound Patient is seen and examined lying in bed. She has status postop day #1 for a left lower extremity wound debridement. She has resting with Vipul wrap and is clean dry and intact to left lower extremity. Capillary refill and mobility of toes. She currently getting a breathing treatment. She states her pain is better total lower extremity, denies any fevers or chills. Objective - Vital Signs Vital signs: Vital Signs Temp 99.2 F 10/04/20 08:00 Pulse 84 10/04/20 08:00 Resp 20 10/04/20 08:00 BP 111/67 10/04/20 08:00 Pulse Ox 92 L 10/04/20 08:00 Intake & Output 10/03/20 10/04/20 10/04/20 18:59 06:59 18:59 Intake Total 410 290 Output Total 5 200 Balance 405 90 Weight 113.398 kg Intake: IV 200 Intake, IV Titration 210 290 Amount Lactated Ringers 1,000 ml 160 240 @ 20 mls/hr IV .Q24H [facility] Rx#:[id number] ceFAZolin 1,000 mg In 50 Sodium Chloride 0.9% 50 ml @ 100 mls/hr IVPB Q12HR [facility] Rx#:[id number] ceFAZolin 2 gm In Sodium 50 Chloride 0.9% 50 ml @ 100 mls/hr IVPB Q8HR [facility] Rx# :[id number] Output: Urine 200 Estimated Blood Loss 5 Other: Voiding Method Toilet # Voids 2 1 - Exam General appearance: The patient is alert, oriented, in no acute distress. HET: Head is normocephalic and atraumatic. Extremities: Left lower extremity with dressing and Vipul wrap clean dry and intact. Good capillary refill. Patient is able to freely move wiggle her toes. Neurological: No focal deficits. Strength and sensation are grossly intact. - Labs CBC & Chem 7: 10/01/20 18:38 10/03/20 07:13 Labs: Abnormal Lab Results - Last 24 Hours (Table) 10/03/20 10/03/20 10/04/20 Range/Units 07:13 07:13 07:20 ESR 40 H (0-30) mm/Hr POC Glucose (mg/dL) 59 L (75-99) mg/dL C-Reactive Protein 3.0 H (0.0-0.8) mg/dL 10/04/20 Range/Units 07:33 ESR (0-30) mm/Hr POC Glucose (mg/dL) 60 L (75-99) mg/dL C-Reactive Protein (0.0-0.8) mg/dL Microbiology - Last 24 Hours (Table) 10/01/20 18:38 Blood Culture - Preliminary Blood No Growth after 48 hours 10/01/20 18:38 Blood Culture - Preliminary Blood No Growth after 48 hours 10/01/20 18:38 Gram Stain - Final Leg - Left Wound Culture - Final Staphylococcus aureus Assessment and Plan Assessment: 1. Stopped a #1 left lower extremity debridement with punch biopsy 2. Left lower extremity nonhealing wound 3. Venous insufficiency 4. Edema Plan: 1. Continue IV antibiotics as ordered per ID 2. Daily dressing change with Santyl to left lower extremity 3. Await biopsy results 4. Bone Scan ordered per infectious disease 5. Follow-up with wound care as scheduled Thank you for this consultation, we will continue to follow The impression and plan of care has been dictated as directed. Dr. Khalil I performed a history and examination of this patient, discussed the same with the dictator. I agree with the dictator's note ,documented as a scribe. Any additional findings or plans will be noted.
[2020-10-04 14:36] LABS: African American GFR (CKD) 12.2 (60.0-200.0); Anion Gap 10.2 mmol/L (4.00-12.00); BUN/Creat Ratio 4.77 Ratio (12.00-20.00); Calcium 8.9 mg/dL (8.7-10.3); Carbon Dioxide 21.8 mmol/L (21.6-31.8); Non-African American GFR(CKD) 10.5 (60.0-200.0); Potassium 4.1 mmol/L (3.5-5.5)
--- NOTE | 2020-10-04 15:17 | NM ---
EXAMINATION TYPE: NM bone 3 phase DATE OF EXAM: 10/04/2020 COMPARISON: Left tibia-fibula x-ray 3 days ago HISTORY: Nonhealing wound left leg, focal pain and swelling. Triple phase bone scintigraphy was performed following the injection of 23.1 mCi Tc 99m MDP. Immedia te images and 5 hours post injection images acquired. Imaging performed of the bilateral legs. FINDINGS: Dynamic arterial phase images show no suspicious increased radiotracer uptake to the left leg versus Dopplers the right leg. Similar findings noted on the soft tissue phase images. Delayed phase images show no suspicious increased radiotracer uptake to the lateral distal left leg at the area of X-ray c oncern. IMPRESSION: No three-phase increased radiotracer uptake to suggest acute osteomyelitis distal lateral left leg.
[2020-10-04 17:04] LABS: Glucose,Whole Blood 83 mg/dL (75-99)
[2020-10-04] MEDS: HYDROmorphone 0.5 MG/0.5 ML SYRINGE IVP PRN (19:38)
[2020-10-04 20:39] LABS: Glucose,Whole Blood 86 mg/dL (75-99)
[2020-10-04] MEDS: ATORVASTATIN 80 MG TAB PO SCH (22:11)
[2020-10-04] MEDS: MONTELUKAST 10 MG TAB PO SCH (22:11)
[2020-10-05] MEDS: HYDROcodone/APAP 10-325MG 1 EACH TAB PO SCH ×4 (00:47→21:08)
[2020-10-05] MEDS: HEPARIN SODIUM,PORCINE/PF 5,000 UNIT/0.5 ML SYRINGE SQ SCH ×3 (00:48→16:02)
--- NOTE | 2020-10-05 03:55 | PN ---
PROGRESS NOTE DATE OF SERVICE: 10/04/2020 REASON FOR FOLLOWUP: Left leg wound infection. INTERVAL HISTORY: The patient is afebrile. The patient is breathing comfortably. The patient denies having any chest pain. No shortness of breath or cough. No abdominal pain. Pain to the left leg is currently controlled. PHYSICAL EXAMINATION: Blood pressure 129/72 with a pulse of 81, temperature 98.6. She is 94% on 3 L nasal cannula. General description: The patient is a middle-aged female lying in bed in no distress. Respiratory system: Unlabored breathing, clear to auscultation anteriorly. Heart S1, S2. Regular rate and rhythm. ABDOMEN: Soft no tenderness. Left leg is currently dressed. No drainage on the dressing. DIAGNOSTIC IMPRESSION AND PLAN: Patient with left leg infected wound status post debridement. Culture with MSSA. Bone scan was negative for any osteo. The patient is covered with cefazolin. The patient did have significant worsening of her kidney function and may benefit from Nephrology evaluation and continue supportive care. MMODL / IJN: [id number] /
[2020-10-05 06:55] LABS: Glucose,Whole Blood 107 mg/dL (75-99)
[2020-10-05] MEDS: INSULIN ASPART (NovoLOG) 100 UNIT/ML VIAL SQ SCH ×4 (07:15→21:01)
[2020-10-05] MEDS: SPIRONOLACTONE 25 MG TAB PO SCH (07:30)
[2020-10-05] MEDS: ASPIRIN 81 MG PO SCH (07:30)
[2020-10-05] MEDS: METOPROLOL TARTRATE 12.5 MG TAB PO SCH (07:30)
[2020-10-05] MEDS: CHOLECALCIFEROL 25 MCG (1000 IU) TABLET PO SCH (07:30)
[2020-10-05] MEDS: metroNIDAZOLE 500 MG TAB PO SCH ×3 (07:30→21:08)
[2020-10-05] MEDS: GLIMEPIRIDE 1 MG TAB PO SCH (07:31)
[2020-10-05] MEDS: PANTOPRAZOLE 40 MG TABLET PO SCH (07:31)
[2020-10-05] MEDS: COLLAGENASE 250 UNIT/GM OINTMENT 30 GM TUBE TOPICAL SCH (07:31)
[2020-10-05] MEDS: NICOTINE 14MG/24HR PATCH TRANSDERM SCH (07:33)
[2020-10-05] MEDS: IPRATROPIUM-ALBUTEROL 3 ML NEB INHALATION SCH ×3 (08:29→20:22)
[2020-10-05] MEDS: PREGABALIN PO SCH ×2 (10:26→21:01)
[2020-10-05 11:30] LABS: African American GFR (CKD) 7.7 (60.0-200.0); Anion Gap 13.4 mmol/L (4.00-12.00); BUN/Creat Ratio 4.53 Ratio (12.00-20.00); Calcium 8.8 mg/dL (8.7-10.3); Carbon Dioxide 22.6 mmol/L (21.6-31.8); Non-African American GFR(CKD) 6.7 (60.0-200.0); Potassium 4.9 mmol/L (3.5-5.5)
[2020-10-05 11:41] LABS: HCT 39.4 % (34.0-46.0); HGB 12.2 gm/dL (11.4-16.0); Hypochromasia Slight; MCHC 30.9 g/dL (31.0-37.0); Macrocytosis Slight; Mean Platelet Volume 11.2; Platelet Count 237 k/uL (150-450); RBC 3.94 m/uL (3.80-5.40); RDW 14.7 % (11.5-15.5); WBC 9.6 k/uL (3.8-10.6)
[2020-10-05 12:08] LABS: Glucose,Whole Blood 110 mg/dL (75-99)
--- NOTE | 2020-10-05 12:53 | US ---
EXAMINATION TYPE: US kidneys/renal and bladder DATE OF EXAM: 10/05/2020 COMPARISON: CT 09/24/2018 CLINICAL HISTORY: DELFIN. EXAM MEASUREMENTS: Right Kidney: 13.7 x 5.5 x 6.2 cm Left Kidney: 13.3 x 5.9 x 7.2 cm Technically difficult study performed portable on patient with large body habitus. Right Kidney: No hydronephrosis or masses seen Left Kidney: No hydronephrosis or masses seen Bladder: wnl Bilateral Jets seen: No No hydronephrosis or large shadowing renal calculi. IMPRESSION: Suboptimal study due to patient's large body habitus. No definite renal or ureteral calculi. Ureteral jets are not visualized.
[2020-10-05] MEDS: LACTATED RINGERS 1,000 ML IV SCH (16:02)
[2020-10-05 17:38] LABS: Glucose,Whole Blood 90 mg/dL (75-99)
--- NOTE | 2020-10-05 17:51 | PN ---
PROGRESS NOTE DATE OF SERVICE: 10/05/2020 REASON FOR FOLLOWUP: Left leg wound infection. INTERVAL HISTORY: The patient is afebrile. The patient is breathing comfortably. Denies having any chest pain or shortness of breath or cough. No abdominal pain and no worsening pain to the left leg. PHYSICAL EXAMINATION: Blood pressure 153/69, pulse 82, temperature 97.8. She is 96% on 2 L nasal cannula. General description is a middle-aged female lying in bed in no distress. RESPIRATORY SYSTEM: Unlabored breathing. Clear to auscultation anteriorly. HEART: S1, S2. Regular rate and rhythm. ABDOMEN: Soft. No tenderness. Left leg is currently dressed. No obvious drainage on the dressing. LABS: Hemoglobin is 12.2, white count 9.6, BUN of 29, creatinine 6.4. DIAGNOSTIC IMPRESSION AND PLAN: Patient with left leg wound infection with secondary cellulitis. Bone scan was negative for osteomyelitis. Patient is covered with cefazolin and oral Flagyl with significant worsening of the kidney function. Nephrology has been consulted. Will await that recommendation. Continue with supportive care. MMODL / IJN: [id number] /
[2020-10-05 20:18] LABS: Glucose,Whole Blood 97 mg/dL (75-99)
[2020-10-05] MEDS: MONTELUKAST 10 MG TAB PO SCH (21:08)
[2020-10-05] MEDS: ATORVASTATIN 80 MG TAB PO SCH (21:08)
--- NOTE | 2020-10-05 21:45 | P.PN ---
Subjective Progress Note Date: 10/05/20 HISTORY OF PRESENT ILLNESS This is a 55 year old female patient of Dr. Noble with past medical history of COPD, fibromyalgia, hypertension, hyperlipidemia, diabetes mellitus type 2, gastroesophageal reflux disease, generalized osteoarthritis, peripheral vascular disease. Patient had bypass surgery of the left lower extremity done approximately 10-12 years ago with basilar surgery at [facility]. Due to complications to the surgery, patient was transferred to [facility] where she underwent a second surgery and nearly needed amputation of the left lower extremity. Patient has a chronic wound to the pretibial area has been following in the wound healing center with Melani Chahal DNP on a weekly basis. She is normally seen there on Thursday. She has completed a recent course of antibiotics according to the patient. Patient was concerned that she had increased pain and odor from the wound. She had contacted the wound center was unable to get appointment yesterday and was instructed to come in the hospital for further evaluation. Recent wound culture was positive for MSSA. Patient denies having any fever or chills. Patient presented to [facility] emergency center and found to be afebrile, heart rate 75, blood pressure 163/79, pulse ox 96% on room air. CBC was unremarkable. Electrolytes unremarkable. Creatinine 0.59. Blood sugar 63. Liver function tests were normal. Tib-fib x-ray revealed large wound on th e lateral expect of the lower fibula. No sign of osteomyelitis. No fracture. [facility] but seen today in the ER waiting for a bed. Consult in place for Wound Center, infectious disease and vascular surgery. 10/03: Patient has been seen by vascular surgery and is scheduled for I&D today. Wound culture is in progress. Patient is complaining of soreness to the left l ower leg. She has on the phone with Dr. Tirado's office regarding pain medication issue. Discussed nicotine patch and patient is agreeable to try using a patch here and will continue after discharge. Patient has been afebrile, heart rate 66, blood pressure 131/81, pulse ox 92% on room air. Crea tinine is 2.38 which is significantly higher today from yesterday of 0.59. This may be secondary to vancomycin which is been discontinued. Metformin will be discontinued. A1C 7.9. Wheelchair will be ordered by registered nurse hh case manager because patient requires a wheelchair to complete ADLs which is unable to be done with a cane or walker because of venous stasis ulcer to the left lower leg and peripheral vascular disease. 10/04: The patient is status post a Brightman of the wound to the left lower extremity done by Dr. Khalil yesterday. Patient stated a very painful but she has received Dilaudid and [place]. She does seem to have some increased shortness of breath and wheezing for which nebulizer treatments will be started. Patient has been seen by Dr. Dunn and a bone scan has been ordered for today and patient is continued on Kefzol. Dosing Has Been Adjusted by Pharmacy. Patient is agreeable that she will stop smoking after she leaves the hospital. Patient has been afebrile, heart rate 84, blood pressure 111/67, pulse ox 92% on 3 L nasal cannula. Blood sugars have been on the lower side with lowest at 59, mostly in the 80s. Hemoglobin A1c came back at 7.9. Glimepiride was decreased to 1 mg daily. Local wound care is scant old. Anticipate need for IV antibiotics if bone scan is positive. BMP results are not available at 12 PM. 10/05: Patient is doing slightly but better, had her procedure with vascular had quite bit pain and discomfort with the debridement, still on 1 care, antibiotic was changed to Kefzol. Culture came back positive for staph aureus susceptible patient be continued Kefzol for now and probably oral eventually. Patient need more help and assistance also had slight increased shortness of breath require IV Lasix along with updraft treatment and more oxygen. Continue to watch symptoms closely and see if there is any further complication especially if there is any change hemodynamically. REVIEW OF SYSTEMS Constitutional: No fever, no chills, no night sweats. No weight change. No weakness, fatigue or lethargy. No daytime sleepiness. Chronic pain. EENT: No headache. No blurred vision or double vision, no loss of vision. No loss of Hearing, no ringing in the ears, no dizziness. No nasal drainage or congestion. No epistaxis. No sore throat. Lungs: No shortness of breath, cough, no sputum production. No wheezing. Cardiovascular: No chest pain, no lower extremity edema. No palpitations. No paroxysmal nocturnal dyspnea. No orthopnea. No lightheadedness or dizziness. No syncopal episodes. Abdominal: No abdominal pain. No nausea, vomiting. No diarrhea. No constipation. No bloody or tarry stools.. No loss of appetite. Genitourinary: No dysuria, increased frequency, urgency. No urinary retention. Musculoskeletal: No myalgias. No muscle weakness, no gait dysfunction, no frequent falls. No back pain. No neck pain. Integumentary: Large ulcers to the left lower extremity with pain. No rash or pruritus. No unusual bruising. No change in hair or nails. Neurologic: No aphasia. No facial droop. No change in mentation. No head injury. No headache. No paralysis. No paresthesia. Psychiatric: No depression. No anxiety. No mood swings. Endocrine: No abnormal blood sugars. No weight change. PHYSICAL EXAMINATION Gen: This is a 55-year-old morbidly obese female. She is resting in bed and appears to be uncomfortable secondary to pain. HEENT: Head is atraumatic, normocephalic. Pupils equal, round. Sclerae is anicteric. NECK: Supple. No JVD. No lymphadenopathy. No thyromegaly. LUNGS: Clear to auscultation. No wheezes or rhonchi. No intercostal retracti ons. HEART: Regular rate and rhythm. No murmur. ABDOMEN: Soft. Bowel sounds are present. No masses. No tenderness. EXTREMITIES: No pedal edema. No calf tenderness. Dressing in place to the left lower extremity for pretibial ulcers. NEUROLOGICAL: Patient is awake, alert and oriented x3. Cranial nerves 2 through 12 are grossly intact. ASSESSMENT AND PLAN 1. Venous stasis ulcer, failed outpatient treatment. post debridement by vascular, continue Kefzol and continue wound care as well. 2. Acute kidney injury most likely secondary to vancomycin which has been disc ontinued. Metformin will be discontinued. Avoid nephrotoxic agents. Repeat BMP in the morning. 3. COPD, slightly red worsening symptoms, continue O2 between 2-3 L along with updraft treatment on regular basis. 4. Hypertension. Continue Lopressor 12.5 mg daily, Aldactone 25 mg daily. 5. Peripheral vascular disease. Continue aspirin 81 mg daily, Lipitor 80 mg daily. 6. Diabetes mellitus type 2. Metformin discontinued, continue NovoLog scale before meals and at bedtime, A1c 7.9. 7. GI prophylaxis. Continue Protonix. 8. Hyperlipidemia. Continue Lipitor 80 mg at bedtime. 9. Chronic pain. Continue Zanaflex 4 mg twice daily as needed, [place] 10 3 times daily. CODE STATUS: Full code. Discharge planning: Hopefully patient be able to go home or might need help to go to subacute for a week to 2 specially when patient is more stable maybe around Thursday. Objective - Vital Signs Vital signs: Vital Signs Temp 98.0 F 10/05/20 08:00 Pulse 77 10/05/20 08:40 Resp 16 10/05/20 08:00 BP 145/73 10/05/20 08:00 Pulse Ox 94 L 10/05/20 08:00 Intake & Output 10/04/20 10/05/20 10/05/20 18:59 06:59 18:59 Intake Total 490 120 Balance 490 120 Intake: Intake, IV Titration 50 Amount ceFAZolin 1,000 mg In 50 Sodium Chloride 0.9% 50 ml @ 100 mls/hr IVPB Q12HR [facility] Rx#:[id number] Oral 440 120 Other: Voiding Method Bedside Commode Bedside Commode # Voids 1 - Labs CBC & Chem 7: 10/05/20 05:57 10/05/20 05:57 Labs: Abnormal Lab Results - Last 24 Hours (Table) 10/04/20 10/04/20 10/05/20 Range/Units 06:43 11:55 06:54 Chloride 112 H (96-109) mmol/L Creatinine 4.4 H (0.6-1.5) mg/dL Est GFR (CKD-EPI)AfAm 12.2 L (60.0-200.0) Est GFR (CKD-EPI)NonAf 10.5 L (60.0-200.0) BUN/Creatinine Ratio 4.77 L (12.00-20.00) Ratio Glucose 64 L (70-110) mg/dL POC Glucose (mg/dL) 119 H 107 H (75-99) mg/dL Microbiology - Last 24 Hours (Table) 10/01/20 18:38 Blood Culture - Preliminary Blood No Growth after 72 hours 10/01/20 18:38 Blood Culture - Preliminary Blood No Growth after 72 hours
[2020-10-06] MEDS: HEPARIN SODIUM,PORCINE/PF 5,000 UNIT/0.5 ML SYRINGE SQ SCH ×4 (00:32→23:49)
[2020-10-06 06:35] LABS: Glucose,Whole Blood 87 mg/dL (75-99)
[2020-10-06] MEDS: LACTATED RINGERS 1,000 ML IV SCH ×2 (06:36→18:51)
[2020-10-06 06:51] LABS: HCT 36.4 % (34.0-46.0); HGB 12.3 gm/dL (11.4-16.0); MCH 32.2 pg (25.0-35.0); MCHC 33.7 g/dL (31.0-37.0); MCV 95.5 fL (80.0-100.0); Mean Platelet Volume 8.4; Platelet Count 251 k/uL (150-450); RBC 3.81 m/uL (3.80-5.40); RDW 14.4 % (11.5-15.5); WBC 7.3 k/uL (3.8-10.6)
[2020-10-06 06:57] LABS: ALT <6 U/L (4-34); AST 30 U/L (14-36); Albumin 3.4 g/dL (3.5-5.0); Alkaline Phosphatase 78 U/L (38-126); Anion Gap 10 mmol/L; Blood Urea Nitrogen 37 mg/dL (7-17); Calcium 9.1 mg/dL (8.4-10.2); Carbon Dioxide 21 mmol/L (22-30); Chloride 111 mmol/L (98-107); Glucose 87 mg/dL (74-99); Non-African American GFR(CKD) 6 (>60 ml/min/1.73 sqM); Potassium 4.6 mmol/L (3.5-5.1); Sodium 142 mmol/L (137-145); Total Bilirubin 0.4 mg/dL (0.2-1.3); Total Protein 5.7 g/dL (6.3-8.2)
[2020-10-06 07:02] LABS: African American GFR (CKD) 6 (>60 ml/min/1.73 sqM)
[2020-10-06] MEDS: IPRATROPIUM-ALBUTEROL 3 ML NEB INHALATION SCH ×3 (08:31→21:00)
[2020-10-06] MEDS: INSULIN ASPART (NovoLOG) 100 UNIT/ML VIAL SQ SCH ×4 (09:10→20:47)
[2020-10-06] MEDS: GLIMEPIRIDE 1 MG TAB PO SCH (09:20)
[2020-10-06] MEDS: PREGABALIN PO SCH (09:22)
[2020-10-06] MEDS: SPIRONOLACTONE 25 MG TAB PO SCH (09:55)
[2020-10-06] MEDS: CHOLECALCIFEROL 25 MCG (1000 IU) TABLET PO SCH (10:29)
[2020-10-06] MEDS: ASPIRIN 81 MG PO SCH (10:29)
[2020-10-06] MEDS: HYDROcodone/APAP 10-325MG 1 EACH TAB PO SCH ×3 (10:30→21:16)
[2020-10-06] MEDS: COLLAGENASE 250 UNIT/GM OINTMENT 30 GM TUBE TOPICAL SCH (10:30)
[2020-10-06] MEDS: PANTOPRAZOLE 40 MG TABLET PO SCH (10:31)
[2020-10-06] MEDS: metroNIDAZOLE 500 MG TAB PO SCH ×3 (10:31→21:16)
[2020-10-06] MEDS: NICOTINE 14MG/24HR PATCH TRANSDERM SCH (10:31)
[2020-10-06] MEDS: METOPROLOL TARTRATE 12.5 MG TAB PO SCH (10:31)
--- NOTE | 2020-10-06 10:33 | XR ---
EXAMINATION TYPE: XR chest 1V portable DATE OF EXAM: 10/06/2020 COMPARISON: Chest x-ray 10/03/2020 HISTORY: Shortness of breath TECHNIQUE: Single frontal view of the chest is obtained. FINDINGS: Technique is somewhat apical lordotic. The heart remains enlarged. There is no evident pne umothorax or pleural effusion. Technique is somewhat limited. No definite airspace disease. Question perihilar vascular indistinctness, prominence of the central vascularity. IMPRESSION: Cardiomegaly. Follow-up PA and lateral chest x-ray for better evaluation as indicated. C orrelate for possible early interstitial edema.
[2020-10-06 12:45] LABS: Glucose,Whole Blood 94 mg/dL (75-99)
--- NOTE | 2020-10-06 15:17 | CONS ---
CONSULTATION REASON FOR CONSULT: Renal failure. HISTORY OF PRESENT ILLNESS: Patient is a 55-year-old female who was admitted to the hospital on 10/01/2020 with complaints of left lower extremity wound, status post recent intervention and follows with Vascular Surgery. She has had a nonhealing wound for some time now. At this time patient is unclear as to what antibiotics she was receiving at home. She denies any prior history of kidney diseases. Serum creatinine was 0.59 on 10/01/2020. It has increased to 7.39 today. The patient's blood pressure is has not been low with one reading noted at 94 on 10/04/2020. It appears that patient had been on vancomycin, but I do not see any previous labs available for comparison. No level was available as well. The patient is currently voiding. It appears that for 24 hours, I see only about 100 mL of urine charted. Patient has been using Motrin for pain prior to admission. At this time she denies any significant nausea or vomiting, although she states that she does not feel like eating much. PAST MEDICAL HISTORY: Type 2 diabetes, COPD, history of [place], chronic left leg wound. PAST SURGICAL HISTORY: Appendectomy, tubal ligation, vascular bypass lower extremity. SOCIAL HISTORY: Positive for smoking. No history of drug abuse or alcohol abuse. MEDICATIONS: Prior to admission included aspirin, Singulair, vitamin B, Lipitor, Lasix, Santyl, Amaryl, Motrin, Lopressor, Lyrica, spironolactone, Glucophage. ALLERGIES: Include OXYCODONE, TOMATOES. PHYSICAL EXAMINATION: Patient is comfortable, awake, not in any acute distress. Blood pressure was 162/84, heart rate 81 per minute, she is afebrile. Examination of the heart S1, S2. Examination of the lungs, bilateral breath sounds are heard. Abdomen is soft, nontender. Examination of the lower extremities shows left foot currently wrapped, no significant edema noted right leg. AERIAL SURVEY TECHNICIAN exam grossly intact. LAB: Show sodium 142, potassium 4.6, chloride 111, CO2 is 21, BUN 37, creatinine 7.39, hemoglobin 12.3 g/dL. ASSESSMENT: 1. Acute progressive renal failure with significant increase in creatinine post admission. The patient was using nonsteroidal anti-inflammatory agents prior to admission. However, creatinine was 0.59 on initial admission. She had been maintained on vancomycin, although I did not see a level of vancomycin. Last dose of vancomycin noted to be the . Blood pressure was low on one occasion, otherwise mostly systolic above 100. The patient did not receive any Motrin post hospitalization. I will check a urinalysis. There is no evidence of obstruction noted on the ultrasound of the kidneys. IV fluids are currently on hold. They were at 75 mL an hour and decreased to 20. I will check a chest x-ray. Continue with decreased IV fluids for now. Monitor urine output accurately. Check a vancomycin level, although it will not be accurate since patient has not received any since the 03 of October. The patient is advised that if her renal function continues to worsen, she will likely need a couple of treatments of dialysis. She is currently nonoliguric. I will check her urinalysis and repeat labs in a.m. 2. Mild volume overload. Check chest x-ray. 3. Left leg cellulitis and wound infection. Maintained on cefazolin and Flagyl. PLAN: Check urinalysis. Check vancomycin level. Avoid hypotension. Avoid any other nephrotoxic agents. Based on the urinalysis, we will order serologies if indicated. Continue with minimal IV fluids for now. Consider holding proton pump inhibitors based on the urinalysis. Thank you for this consultation. Will continue to follow the patient with you during her hospitalization. MMODL / IJN: [id number] /
--- NOTE | 2020-10-06 15:19 | P.PN ---
Subjective Progress Note Date: 10/06/20 HISTORY OF PRESENT ILLNESS This is a 55 year old female patient of Dr. Noble with past medical history of COPD, fibromyalgia, hypertension, hyperlipidemia, diabetes mellitus type 2, g astroesophageal reflux disease, generalized osteoarthritis, peripheral vascular disease. Patient had bypass surgery of the left lower extremity done approximately 10-12 years ago with basilar surgery at [facility]. Due to complications to the surgery, patient was transferred to [facility] where she underwent a second surgery and nearly needed amputation of the left lower extremity. Patient has a chronic wound to the pretibial area has been following in the wound healing center with Melani Chahal DNP on a weekly basis. She is normally seen there on Thursday. She has completed a recent course of antibiotics according to the patient. Patient was concerned that she had increased pain and odor from the wound. She had contacted the wound center was unable to get appointment yesterday and was instructed to come in the hospital for further evaluation. Recent wound culture was positive for MSSA. Patient denies having any fever or chills. Patient presented to [facility] emergency center and found to be afebrile, heart rate 75, blood pressure 163/79, pulse ox 96% on room air. CBC was unremarkable. Electrolytes unremarkable. Creatinine 0.59. Blood sugar 63. Liver function tests were normal. Tib-fib x-ray revealed large wound on the lateral expect of the lower fibula. No sign of osteomyelitis. No fracture. Patient admitted to the [facility] floor but seen today in the ER waiting for a bed. Consult in place for Wound Center, infectious disease and vascular surgery. 10/03: Patient has been seen by vascular surgery and is scheduled for I&D today. Wound culture is in progress. Patient is complaining of soreness to the left lo wer leg. She has on the phone with Dr. Tirado's office regarding pain medication issue. Discussed nicotine patch and patient is agreeable to try using a patch here and will continue after discharge. Patient has been afebrile, heart rate 66, blood pressure 131/81, pulse ox 92% on room air. Creat inine is 2.38 which is significantly higher today from yesterday of 0.59. This may be secondary to vancomycin which is been discontinued. Metformin will be discontinued. A1C 7.9. Wheelchair will be ordered by family caseworker because patient requires a wheelchair to complete ADLs which is unable to be done with a cane or walker because of venous stasis ulcer to the left lower leg and peripheral vascular disease. 10/04: The patient is status post a Brightman of the wound to the left lower extremity done by Dr. Khalil yesterday. Patient stated a very painful but she has received Dilaudid and Lazbuddie. She does seem to have some increased shortness of breath and wheezing for which nebulizer treatments will be started. Patient has been seen by Dr. Dunn and a bone scan has been ordered for today and patient is continued on Kefzol. Dosing Has Been Adjusted by Pharmacy. Patient is agreeable that she will stop smoking after she leaves the hospital. Patient has been afebrile, heart rate 84, blood pressure 111/67, pulse ox 92% on 3 L nasal cannula. Blood sugars have been on the lower side with lowest at 59, mostly in the 80s. Hemoglobin A1c came back at 7.9. Glimepiride was decreased to 1 mg daily. Local wound care is scant old. Anticipate need for IV antibiotics if bone scan is positive. BMP results are not available at 12 PM. 10/05: Patient is doing slightly but better, had her procedure with vascular had quite bit pain and discomfort with the debridement, still on 1 care, antibiotic was changed to Kefzol. Culture came back positive for staph aureus susceptible patient be continued Kefzol for now and probably oral eventually. Patient need more help and assistance also had slight increased shortness of breath require IV Lasix along with updraft treatment and more oxygen. Continue to watch symptoms closely and see if there is any further complication especially if there is any change hemodynamically. 10/06 denies any urinary complaints at this point. She does endorse going to the bathroom too often. She is here admitted for the distal atrophy left leg. Wound culture positive for MSSA. Patient is noted to have worsening kidney function with her creatinine 7.39 today. BUN 37 chloride 111. Potassium 4.6. Lyrica discontinued. Patient is currently not on any nephrotoxic agents. Continues to be cefazolin and oral flagyl. We'll continue to watch patient's creatinine for the next 24 hours REVIEW OF SYSTEMS Constitutional: No fever, no chills, no night sweats. No weight change. No weakness, fatigue or lethargy. No daytime sleepiness. Chronic pain. EENT: No headache. No blurred vision or double vision, no loss of vision. No loss of Hearing, no ringing in the ears, no dizziness. No nasal drainage or congestion. No epistaxis. No sore throat. Lungs: No shortness of breath, cough, no sputum production. No wheezing. Cardiovascular: No chest pain, no lower extremity edema. No palpitations. No paroxysmal nocturnal dyspnea. No orthopnea. No lightheadedness or dizziness. No syncopal episodes. Abdominal: No abdominal pain. No nausea, vomiting. No diarrhea. No constipation. No bloody or tarry stools.. No loss of appetite. Genitourinary: No dysuria, increased frequency, urgency. No urinary retention. Musculoskeletal: No myalgias. No muscle weakness, no gait dysfunction, no frequent falls. No back pain. No neck pain. Integumentary: Large ulcers to the left lower extremity with pain. No rash or pruritus. No unusual bruising. No change in hair or nails. Neurologic: No aphasia. No facial droop. No change in mentation. No head injury. No headache. No paralysis. No paresthesia. Psychiatric: No depression. No anxiety. No mood swings. Endocrine: No abnormal blood sugars. No weight change. Objective - Vital Signs Vital signs: Vital Signs Temp 97.9 F 10/06/20 14:25 Pulse 71 10/06/20 14:25 Resp 18 10/06/20 14:25 BP 155/70 10/06/20 14:25 Pulse Ox 95 10/06/20 14:25 Intake & Output 10/05/20 10/06/20 10/06/20 18:59 06:59 18:59 Intake Total 120 900 Output Total 100 375 Balance 20 900 -375 Weight 113.398 kg Intake: Intake, IV Titration 900 Amount Lactated Ringers 1,000 ml 900 @ 20 mls/hr IV .Q24H [facility] Rx#:[id number] Oral 120 Output: Urine 100 375 Other: Voiding Method Bedside Commode Bedside Commode Bedside Commode # Voids 1 4 1 - Exam Gen: This is a 55-year-old morbidly obese female. She is resting in bed and appears to be uncomfortable secondary to pain. HEENT: Head is atraumatic, normocephalic. Pupils equal, round. Sclerae is anicteric. NECK: Supple. No JVD. No lymphadenopathy. No thyromegaly. LUNGS: Clear to auscultation. No wheezes or rhonchi. No intercostal retractions. HEART: Regular rate and rhythm. No murmur. ABDOMEN: Soft. Bowel sounds are present. No masses. No tenderness. EXTREMITIES: No pedal edema. No calf tenderness. Dressing in place to the left lower extremity for pretibial ulcers. NEUROLOGICAL: Patient is awake, alert and oriented x3. Cranial nerves 2 through 12 are grossly intact. - Labs CBC & Chem 7: 10/06/20 06:24 10/06/20 06:24 Labs: Abnormal Lab Results - Last 24 Hours (Table) 10/06/20 Range/Units 06:24 Chloride 111 H (98-107) mmol/L Carbon Dioxide 21 L (22-30) mmol/L BUN 37 H (7-17) mg/dL Creatinine 7.39 H* (0.52-1.04) mg/dL Total Protein 5.7 L (6.3-8.2) g/dL Albumin 3.4 L (3.5-5.0) g/dL Microbiology - Last 24 Hours (Table) 10/01/20 18:38 Blood Culture - Preliminary Blood No Growth after 96 hours 10/01/20 18:38 Blood Culture - Preliminary Blood No Growth after 96 hours Assessment and Plan Plan: 1. Venous stasis ulcer with cellulitis, failed outpatient treatment. Wound culture positive for MSSA status post debridement on by vascular, continue Kefzol and oral Flagyl and continue wound care as well. Bone scan negative for osteomyelitis 2. Acute kidney injury most likely secondary to vancomycin which has been discontinued. Metformin discontinued. Patient did not get a dose of metformin or Lyrica that she was in the hospital. She did receive 1 dose of vancomycin which was discontinued on admission. Avoid nephrotoxic agents. Repeat BMP in the morning. Possible dialysis per nephrology 3. COPD, slightly red worsening symptoms, continue O2 between 2-3 L along with updraft treatment on regular basis. 4. Hypertension. Continue Lopressor 12.5 mg daily, Aldactone 25 mg daily. 5. Peripheral vascular disease. Continue aspirin 81 mg daily, Lipitor 80 mg daily. 6. Diabetes mellitus type 2. Metformin discontinued, continue NovoLog scale before meals and at bedtime, A1c 7.9. 7. GI prophylaxis. Continue Protonix. 8. Hyperlipidemia. Continue Lipitor 80 mg at bedtime. 9. Chronic pain. Continue Zanaflex 4 mg twice daily as needed, Lazbuddie 10 3 times daily. CODE STATUS: Full code.
[2020-10-06 15:46] LABS: Appearance,Urine Cloudy (Clear); Bilirubin,Urine Negative (Negative); Blood,Urine Small (Negative); Color,Urine Yellow; Glucose,Urine (UA) Negative (Negative); Ketones,Urine Trace (Negative); Leukocyte Esterase,Urine Negative (Negative); Nitrite,Urine Negative (Negative); PH, Urine 5.5 (5.0-8.0); Protein,Urine 1+ (Negative); RBC,Urine 6 /hpf (0-5); Specific Gravity,Urine 1.011 (1.001-1.035); Squamous Epithelial Cell,Urine 6 /hpf (0-4); Urobilinogen,Urine <2.0 mg/dL (<2.0); WBC,Urine 3 /hpf (0-5)
[2020-10-06 17:49] LABS: Glucose,Whole Blood 86 mg/dL (75-99)
[2020-10-06 20:13] LABS: Glucose,Whole Blood 95 mg/dL (75-99)
[2020-10-06] MEDS ORDERED: PREGABALIN 75 MG PO SCH (21:00)
[2020-10-06] MEDS: MONTELUKAST 10 MG TAB PO SCH (21:16)
[2020-10-06] MEDS: ATORVASTATIN 80 MG TAB PO SCH (21:16)
--- NOTE | 2020-10-06 22:40 | P.PN ---
Progress Note - Text Progress Note Date: 10/06/20 Patient seen and examined. Left lower extremity dressing was changed at the bedside without complications. She is to continue her Santyl to the wound bed daily. Continue pain control. Discussed with nursing changing daily which they state they will perform.
--- NOTE | 2020-10-07 00:06 | PN ---
PROGRESS NOTE DATE OF SERVICE: 10/06/2020 REASON FOR FOLLOWUP: Left lower extremity wound and cellulitis. INTERVAL HISTORY: Patient is currently afebrile. The patient is breathing comfortably. Denies having any chest pain. No shortness of breath. No cough. No abdominal pain. Pain to the left leg is currently controlled. Making a good amount of urine. PHYSICAL EXAMINATION: Blood pressure 151/77, pulse of 83, temperature is 97.2. She is 97% on 1 L nasal cannula. General description is a middle-aged female lying in in no distress. Respiratory system: Unlabored breathing, clear to auscultation anteriorly. Heart S1, S2. Regular rate and rhythm. ABDOMEN: Soft, no tenderness. Left leg is currently dressed up. No obvious drainage on the dressing. LABS: White count 7.3, creatinine 7.39. DIAGNOSTIC IMPRESSION AND PLAN: Patient with left leg wound with secondary cellulitis. Culture positive for MSSA. The patient is covered cefazolin and Flagyl. Local care to continue as ordered with worsening of the kidney function. Nephrology following the patient. MMODL / IJN: [id number] /
[2020-10-07 05:57] LABS: Glucose,Whole Blood 89 mg/dL (75-99)
[2020-10-07] MEDS: INSULIN ASPART (NovoLOG) 100 UNIT/ML VIAL SQ SCH ×4 (06:06→20:50)
[2020-10-07 06:09] LABS: Basophils % (A) 1 %; Eosinophils # (A) 0.4 k/uL (0-0.7); Eosinophils % (A) 5 %; HCT 35.7 % (34.0-46.0); Lymphocytes # (A) 0.9 k/uL (1.0-4.8); Lymphocytes % (A) 11 %; MCH 31.9 pg (25.0-35.0); MCHC 33.5 g/dL (31.0-37.0); MCV 95.3 fL (80.0-100.0); Mean Platelet Volume 8.5; Monocytes # (A) 0.7 k/uL (0-1.0); Monocytes % (A) 9 %; Neutrophils # (A) 5.5 k/uL (1.3-7.7); Neutrophils % (A) 72 %; Platelet Count 271 k/uL (150-450); RBC 3.75 m/uL (3.80-5.40); RDW 14.4 % (11.5-15.5); WBC 7.6 k/uL (3.8-10.6)
[2020-10-07 06:22] LABS: ALT <6 U/L (4-34); AST 27 U/L (14-36); African American GFR (CKD) 7 (>60 ml/min/1.73 sqM); Albumin 3.3 g/dL (3.5-5.0); Alkaline Phosphatase 82 U/L (38-126); Anion Gap 11 mmol/L; Blood Urea Nitrogen 42 mg/dL (7-17); Calcium 9.4 mg/dL (8.4-10.2); Carbon Dioxide 24 mmol/L (22-30); Chloride 110 mmol/L (98-107); Glucose 77 mg/dL (74-99); Non-African American GFR(CKD) 6 (>60 ml/min/1.73 sqM); Potassium 4.5 mmol/L (3.5-5.1); Sodium 145 mmol/L (137-145); Total Bilirubin 0.3 mg/dL (0.2-1.3); Total Protein 5.6 g/dL (6.3-8.2)
[2020-10-07] MEDS: IPRATROPIUM-ALBUTEROL 3 ML NEB INHALATION SCH ×3 (07:22→20:09)
[2020-10-07] MEDS: HEPARIN SODIUM,PORCINE/PF 5,000 UNIT/0.5 ML SYRINGE SQ SCH ×3 (08:31→23:41)
[2020-10-07] MEDS: HYDROcodone/APAP 10-325MG 1 EACH TAB PO SCH ×3 (08:31→23:40)
[2020-10-07] MEDS: metroNIDAZOLE 500 MG TAB PO SCH ×3 (08:31→21:30)
[2020-10-07] MEDS: NICOTINE 14MG/24HR PATCH TRANSDERM SCH (08:32)
[2020-10-07] MEDS: ASPIRIN 81 MG PO SCH (08:32)
[2020-10-07] MEDS: CHOLECALCIFEROL 25 MCG (1000 IU) TABLET PO SCH (08:32)
[2020-10-07] MEDS: GLIMEPIRIDE 1 MG TAB PO SCH (08:32)
[2020-10-07] MEDS: PANTOPRAZOLE 40 MG TABLET PO SCH (08:32)
[2020-10-07] MEDS: METOPROLOL TARTRATE 12.5 MG TAB PO SCH (08:32)
[2020-10-07] MEDS: COLLAGENASE 250 UNIT/GM OINTMENT 30 GM TUBE TOPICAL SCH (08:32)
[2020-10-07] MEDS ORDERED: PREGABALIN 25 MG PO SCH (09:00)
--- NOTE | 2020-10-07 11:56 | P.PN ---
Subjective Progress Note Date: 10/07/20 HISTORY OF PRESENT ILLNESS This is a 55 year old female patient of Dr. Noble with past medical history of COPD, fibromyalgia, hypertension, hyperlipidemia, diabetes mellitus type 2, g astroesophageal reflux disease, generalized osteoarthritis, peripheral vascular disease. Patient had bypass surgery of the left lower extremity done approximately 10-12 years ago with basilar surgery at [facility]. Due to complications to the surgery, patient was transferred to [facility] where she underwent a second surgery and nearly needed amputation of the left lower extremity. Patient has a chronic wound to the pretibial area has been following in the wound healing center with Melani Chahal DNP on a weekly basis. She is normally seen there on Thursday. She has completed a recent course of antibiotics according to the patient. Patient was concerned that she had increased pain and odor from the wound. She had contacted the wound center was unable to get appointment yesterday and was instructed to come in the hospital for further evaluation. Recent wound culture was positive for MSSA. Patient denies having any fever or chills. Patient presented to [facility] emergency center and found to be afebrile, heart rate 75, blood pressure 163/79, pulse ox 96% on room air. CBC was unremarkable. Electrolytes unremarkable. Creatinine 0.59. Blood sugar 63. Liver function tests were normal. Tib-fib x-ray revealed large wound on the lateral expect of the lower fibula. No sign of osteomyelitis. No fracture. Patient admitted to the [facility] floor but seen today in the ER waiting for a bed. Consult in place for Wound Center, infectious disease and vascular surgery. 10/03: Patient has been seen by vascular surgery and is scheduled for I&D today. Wound culture is in progress. Patient is complaining of soreness to the left lo wer leg. She has on the phone with Dr. Tirado's office regarding pain medication issue. Discussed nicotine patch and patient is agreeable to try using a patch here and will continue after discharge. Patient has been afebrile, heart rate 66, blood pressure 131/81, pulse ox 92% on room air. Creat inine is 2.38 which is significantly higher today from yesterday of 0.59. This may be secondary to vancomycin which is been discontinued. Metformin will be discontinued. A1C 7.9. Wheelchair will be ordered by case management director because patient requires a wheelchair to complete ADLs which is unable to be done with a cane or walker because of venous stasis ulcer to the left lower leg and peripheral vascular disease. 10/04: The patient is status post a [place] of the wound to the left lower extremity done by Dr. Khalil yesterday. Patient stated a very painful but she has received Dilaudid and [place]. She does seem to have some increased shortness of breath and wheezing for which nebulizer treatments will be started. Patient has been seen by Dr. Dunn and a bone scan has been ordered for today and patient is continued on Kefzol. Dosing Has Been Adjusted by Pharmacy. Patient is agreeable that she will stop smoking after she leaves the hospital. Patient has been afebrile, heart rate 84, blood pressure 111/67, pulse ox 92% on 3 L nasal cannula. Blood sugars have been on the lower side with lowest at 59, mostly in the 80s. Hemoglobin A1c came back at 7.9. Glimepiride was decreased to 1 mg daily. Local wound care is scant old. Anticipate need for IV antibiotics if bone scan is positive. BMP results are not available at 12 PM. 10/05: Patient is doing slightly but better, had her procedure with vascular had quite bit pain and discomfort with the debridement, still on 1 care, antibiotic was changed to Kefzol. Culture came back positive for staph aureus susceptible patient be continued Kefzol for now and probably oral eventually. Patient need more help and assistance also had slight increased shortness of breath require IV Lasix along with updraft treatment and more oxygen. Continue to watch symptoms closely and see if there is any further complication especially if there is any change hemodynamically. 10/06 denies any urinary complaints at this point. She does endorse going to the bathroom too often. She is here admitted for the distal atrophy left leg. Wound culture positive for MSSA. Patient is noted to have worsening kidney function with her creatinine 7.39 today. BUN 37 chloride 111. Potassium 4.6. Lyrica discontinued. Patient is currently not on any nephrotoxic agents. Continues to be cefazolin and oral flagyl. We'll continue to watch patient's creatinine for the next 24 hours 10/07 patient examined bedside. Denies any new complaints. She is currently on 1 L of nasal cannula temp of 97.3 pulse 88 respiratory rate 18 blood pressure 169/94 subclasses. WBC 7.6 platelet 271 hemoglobin 12. Creatinine is improved slightly to 7.28 BUN still high at 42 chloride 110 sodium 145. Nephrology has evaluated the patient and. Fluids discontinued. Continue to monitor for another 24 hour with plan to possible dialyse the patient if no improvement is made. Patient's blood pressure continues to be high we will increase patient's metoprolol to 25 3 times a day REVIEW OF SYSTEMS Constitutional: No fever, no chills, no night sweats. No weight change. No weakness, fatigue or lethargy. No daytime sleepiness. Chronic pain. EENT: No headache. No blurred vision or double vision, no loss of vision. No loss of Hearing, no ringing in the ears, no dizziness. No nasal drainage or congestion. No epistaxis. No sore throat. Lungs: No shortness of breath, cough, no sputum production. No wheezing. Cardiovascular: No chest pain, no lower extremity edema. No palpitations. No paroxysmal nocturnal dyspnea. No orthopnea. No lightheadedness or dizziness. No syncopal episodes. Abdominal: No abdominal pain. No nausea, vomiting. No diarrhea. No constipation. No bloody or tarry stools.. No loss of appetite. Genitourinary: No dysuria, increased frequency, urgency. No urinary retention. Musculoskeletal: No myalgias. No muscle weakness, no gait dysfunction, no frequent falls. No back pain. No neck pain. Integumentary: Large ulcers to the left lower extremity with pain. No rash or pruritus. No unusual bruising. No change in hair or nails. Neurologic: No aphasia. No facial droop. No change in mentation. No head injury. No headache. No paralysis. No paresthesia. Psychiatric: No depression. No anxiety. No mood swings. Endocrine: No abnormal blood sugars. No weight change. Objective - Vital Signs Vital signs: Vital Signs Temp 97.6 F 10/07/20 08:34 Pulse 82 10/07/20 08:08 Resp 18 10/07/20 08:08 BP 169/94 10/07/20 08:08 Pulse Ox 95 10/07/20 08:08 Intake & Output 10/06/20 10/07/20 10/07/20 18:59 06:59 18:59 Intake Total 270 240 Output Total 500 830 425 Balance -500 -560 -185 Intake: Intake, IV Titration 220 Amount Lactated Ringers 1,000 ml 220 @ 20 mls/hr IV .Q24H [facility] Rx#:[id number] Oral 50 240 Output: Urine 500 830 425 Other: Voiding Method Bedside Commode Bedside Commode # Voids 1 1 1 - Exam Gen: This is a 55-year-old morbidly obese female. She is resting in bed and appears to be uncomfortable secondary to pain. HEENT: Head is atraumatic, normocephalic. Pupils equal, round. Sclerae is anicteric. NECK: Supple. No JVD. No lymphadenopathy. No thyromegaly. LUNGS: Clear to auscultation. No wheezes or rhonchi. No intercostal retraction s. HEART: Regular rate and rhythm. No murmur. ABDOMEN: Soft. Bowel sounds are present. No masses. No tenderness. EXTREMITIES: No pedal edema. No calf tenderness. Dressing in place to the left lower extremity for pretibial ulcers. NEUROLOGICAL: Patient is awake, alert and oriented x3. Cranial nerves 2 through 12 are grossly intact. - Labs CBC & Chem 7: 10/07/20 05:08 10/07/20 05:08 Labs: Abnormal Lab Results - Last 24 Hours (Table) 10/06/20 10/07/20 10/07/20 Range/Units 15:30 05:08 05:08 RBC 3.75 L (3.80-5.40) m/uL Lymphocytes # 0.9 L (1.0-4.8) k/uL Chloride 110 H (98-107) mmol/L BUN 42 H (7-17) mg/dL Creatinine 7.28 H* (0.52-1.04) mg/dL Total Protein 5.6 L (6.3-8.2) g/dL Albumin 3.3 L (3.5-5.0) g/dL Urine Appearance Cloudy H (Clear) Urine Protein 1+ H (Negative) Urine Ketones Trace H (Negative) Urine Blood Small H (Negative) Urine RBC 6 H (0-5) /hpf Ur Squamous Epith Cells 6 H (0-4) /hpf Microbiology - Last 24 Hours (Table) 10/01/20 18:38 Blood Culture - Preliminary Blood No Growth after 120 hours 10/01/20 18:38 Blood Culture - Preliminary Blood No Growth after 120 hours Assessment and Plan Plan: 1. Venous stasis ulcer with cellulitis, failed outpatient treatment. Wound culture positive for MSSA status post debridement on by vascular, continue Kefzol and oral Flagyl and continue wound care as well. Bone scan negative for osteomyelitis 2. Acute kidney injury most likely secondary to vancomycin which has been discontinued. Metformin discontinued. Patient did not get a dose of metformin or Lyrica while in the hospital. She did receive 1 dose of vancomycin which was discontinued on admission. Avoid nephrotoxic agents. Repeat BMP in the morning. Possible dialysis per nephrology 3. COPD, slightly red worsening symptoms, continue O2 between 2-3 L along with updraft treatment on regular basis. 4. Hypertension. Lopressor increased to 25 3 times a day, Aldactone discontinued due to worsening kidney function 5. Peripheral vascular disease. Continue aspirin 81 mg daily, Lipitor 80 mg daily. 6. Diabetes mellitus type 2. Metformin discontinued, continue NovoLog scale before meals and at bedtime, A1c 7.9. 7. GI prophylaxis. Continue Protonix. 8. Hyperlipidemia. Continue Lipitor 80 mg at bedtime. 9. Chronic pain. Continue Zanaflex 4 mg twice daily as needed, Florissant 10 3 times daily. CODE STATUS: Full code.
--- NOTE | 2020-10-07 12:17 | P.PN ---
Subjective Progress Note Date: 10/07/20 Principal diagnosis: left lower extremity wounds Patient seen and examined. Doing well this morning. Pain controlled. Dressings changed last night. No fevers, chills, chest pain or shortness of breath. Objective - Vital Signs Vital signs: Vital Signs Temp 97.6 F 10/07/20 08:34 Pulse 82 10/07/20 08:08 Resp 18 10/07/20 08:08 BP 169/94 10/07/20 08:08 Pulse Ox 95 10/07/20 08:08 Intake & Output 10/06/20 10/07/20 10/07/20 18:59 06:59 18:59 Intake Total 270 240 Output Total 500 830 425 Balance -500 -560 -185 Intake: Intake, IV Titration 220 Amount Lactated Ringers 1,000 ml 220 @ 20 mls/hr IV .Q24H [facility] Rx#:[id number] Oral 50 240 Output: Urine 500 830 425 Other: Voiding Method Bedside Commode Bedside Commode # Voids 1 1 1 - Exam left lower extremity wounds with dressings in place. Some drainage noted. +tenderness to palpation. - Constitutional General appearance: Present: morbidly obese - EENT Eyes: Present: PERRLA - Respiratory Respiratory: bilateral: CTA - Cardiovascular Rhythm: regular - Psychiatric Psychiatric: Present: A&O x's 3 - Labs CBC & Chem 7: 10/07/20 05:08 10/07/20 05:08 Labs: Abnormal Lab Results - Last 24 Hours (Table) 10/06/20 10/07/20 10/07/20 Range/Units 15:30 05:08 05:08 RBC 3.75 L (3.80-5.40) m/uL Lymphocytes # 0.9 L (1.0-4.8) k/uL Chloride 110 H (98-107) mmol/L BUN 42 H (7-17) mg/dL Creatinine 7.28 H* (0.52-1.04) mg/dL Total Protein 5.6 L (6.3-8.2) g/dL Albumin 3.3 L (3.5-5.0) g/dL Urine Appearance Cloudy H (Clear) Urine Protein 1+ H (Negative) Urine Ketones Trace H (Negative) Urine Blood Small H (Negative) Urine RBC 6 H (0-5) /hpf Ur Squamous Epith Cells 6 H (0-4) /hpf Microbiology - Last 24 Hours (Table) 10/01/20 18:38 Blood Culture - Preliminary Blood No Growth after 120 hours 10/01/20 18:38 Blood Culture - Preliminary Blood No Growth after 120 hours Assessment and Plan Assessment: 1. Chronic venous insufficiency with left lower extremity ulceration 2. Nonpressure chronic ulcer of left calf with fat layer exposure s/p debridement 3. Type 2 diabetes with other skin ulcer 4. Morbid Obesity Plan: Continue local wound care with daily dressing changes with Santyl. Elevate lower extremity and recommend lacy wraps over dressings if able to tolerate. Wound care to follow. No further surgical intervention at this time.
[2020-10-07 12:27] LABS: Glucose,Whole Blood 98 mg/dL (75-99)
[2020-10-07] MEDS: METOPROLOL TARTRATE 25 MG TAB PO SCH ×3 (12:43→21:30)
--- NOTE | 2020-10-07 14:00 | PN ---
PROGRESS NOTE The patient is seen for followup for acute kidney injury. Her renal function has rapidly deteriorated with creatinine up to 7.39 yesterday from 0.59 on initial admission. The patient was on vancomycin although a level was not obtained when she was on it. The level from yesterday was not elevated but patient had been off of vancomycin for about 2-3 days. There was no evidence of obstruction on the ultrasound. Patient has been voiding fairly well. She is currently maintained on IV fluids. PHYSICAL EXAMINATION: On examination today, blood pressure 169/94, heart rate 82 per minute, patient is afebrile. Examination of the heart S1, S2. Examination of the lungs, decreased breath sounds at bases. Abdomen is soft, nontender. Examination of lower extremities shows no significant edema. Left foot is currently wrapped. LAB: Show sodium 145, potassium 4.5, BUN 42, creatinine 7.28, hemoglobin 12.0 g/dL. UA shows 1+ protein, small blood noted, WBCs 3. ASSESSMENT: 1. Acute kidney injury, most likely acute tubular necrosis, possibly related to vancomycin although a level was not obtained when patient was on it. The patient is currently nonoliguric with good urine output. There may be some improvement in renal function. We will repeat labs in a.m. No indication for renal replacement therapy at this time. Given her mild proteinuria and hematuria I will obtain serologies to rule out underlying glomerulonephritis, although this is unlikely. 2. Left leg cellulitis and wound infection, maintained on cefazolin and Flagyl currently status post vancomycin. PLAN: Repeat labs in a.m. Avoid any other nephrotoxic agents. Continue off IV fluids. Encourage increased oral intake. MMODL / IJN: [id number] /
[2020-10-07 16:45] LABS: Hepatitis B Surface AB- Quant <3.5 mIU/mL; Hepatitis B Surface Antibody Non-Reactive (Non-Reactive); Hepatitis B Surface Antigen Non-Reactive (Non-Reactive); Hepatitis C IgG Antibody Non-Reactive (Non-Reactive)
[2020-10-07 17:37] LABS: Glucose,Whole Blood 76 mg/dL (75-99)
--- NOTE | 2020-10-07 19:12 | PN ---
PROGRESS NOTE DATE OF SERVICE: 10/07/2020 REASON FOR FOLLOWUP: Left lower extremity infected wound and cellulitis. INTERVAL HISTORY: The patient is currently afebrile. The patient is breathing comfortably. Denies having any chest pain. No shortness of breath or cough. No nausea, vomiting, abdominal pain, or any worsening pain in the left leg wound area. PHYSICAL EXAMINATION: Blood pressure 130/67, pulse of 73, temperature is 98.6. General description is a middle-aged female lying in in no distress. Respiratory system: Unlabored breathing, clear to auscultation anteriorly. Heart S1, S2 regular rate and rhythm. Abdomen soft, no tenderness. Left leg wound is currently dressed. No obvious drainage on the dressing. LABS: Hemoglobin is 12.7, white count 7.7, BUN of 42, creatinine 7.28. DIAGNOSTIC IMPRESSION AND PLAN: Patient with MSSA left leg wound and secondary cellulitis. Culture positive for MSSA. Previous culture positive for anaerobes. Patient is covered with cefazolin and Flagyl. Local care to continue with Santyl and monitor clinical course closely. MMODL / IJN: [id number] /
[2020-10-07 20:13] LABS: Glucose,Whole Blood 114 mg/dL (75-99)
[2020-10-07] MEDS: MONTELUKAST 10 MG TAB PO SCH (21:30)
[2020-10-07] MEDS: ATORVASTATIN 80 MG TAB PO SCH (21:30)
[2020-10-07] MEDS: LACTATED RINGERS 1,000 ML IV SCH (21:32)
[2020-10-08 06:08] LABS: Glucose,Whole Blood 73 mg/dL (75-99)
[2020-10-08] MEDS: INSULIN ASPART (NovoLOG) 100 UNIT/ML VIAL SQ SCH ×4 (06:10→20:40)
[2020-10-08 07:13] LABS: Glucose,Whole Blood 82 mg/dL (75-99)
[2020-10-08] MEDS: NICOTINE 14MG/24HR PATCH TRANSDERM SCH (08:23)
[2020-10-08] MEDS: HYDROcodone/APAP 10-325MG 1 EACH TAB PO SCH ×3 (08:23→21:43)
[2020-10-08] MEDS: HEPARIN SODIUM,PORCINE/PF 5,000 UNIT/0.5 ML SYRINGE SQ SCH ×3 (08:23→23:31)
[2020-10-08] MEDS: CHOLECALCIFEROL 25 MCG (1000 IU) TABLET PO SCH (08:23)
[2020-10-08] MEDS: ASPIRIN 81 MG PO SCH (08:23)
[2020-10-08] MEDS: METOPROLOL TARTRATE 25 MG TAB PO SCH ×3 (08:23→22:31)
[2020-10-08] MEDS: GLIMEPIRIDE 1 MG TAB PO SCH (08:24)
[2020-10-08] MEDS: metroNIDAZOLE 500 MG TAB PO SCH ×3 (08:24→21:43)
[2020-10-08] MEDS: PANTOPRAZOLE 40 MG TABLET PO SCH (08:24)
[2020-10-08] MEDS: IPRATROPIUM-ALBUTEROL 3 ML NEB INHALATION SCH ×3 (08:33→20:54)
[2020-10-08] MEDS: COLLAGENASE 250 UNIT/GM OINTMENT 30 GM TUBE TOPICAL SCH (09:30)
[2020-10-08 09:35] LABS: Calcium 9.7 mg/dL (8.4-10.2); Potassium 4.2 mmol/L (3.5-5.1)
[2020-10-08] MEDS ORDERED: FLUTICASONE 50MCG/SPRAY NASAL 16GM EA NOSTRIL PRN (12:33)
[2020-10-08 13:21] LABS: Glucose,Whole Blood 73 mg/dL (75-99)
--- NOTE | 2020-10-08 13:27 | PN ---
PROGRESS NOTE Patient is seen for followup for acute kidney injury. She is currently feeling better. Patient has had good urine output. Serum creatinine is finally decreasing. It is down to 5.5 mg/dL today. PHYSICAL EXAMINATION: Blood pressure 158/88, heart rate 76 per minute. Patient is afebrile. Examination of the heart S1, S2. Examination of the lungs, bilateral breath sounds are heard. ABDOMEN: Soft. Obese. Exam of lower extremities shows edema trace bilaterally. LAB: Show sodium of 144, potassium 4.2, chloride 108, BUN 53, creatinine 5.5. ASSESSMENT: 1. Acute kidney injury acute tubular necrosis, possibly secondary to vancomycin toxicity as well currently improving. 2. Left leg cellulitis and wound infection maintained on antibiotics. 3. Dyslipidemia. 4. Obesity. PLAN: Okay to continue with oral Lasix, minimize IV fluids. Increase oral intake. Repeat labs in a.m. Avoid any nephrotoxic agents. MMODL / IJN: [id number] /
--- NOTE | 2020-10-08 14:33 | P.PN ---
Subjective Progress Note Date: 10/08/20 HISTORY OF PRESENT ILLNESS This is a 55 year old female patient of Dr. Noble with past medical history of COPD, fibromyalgia, hypertension, hyperlipidemia, diabetes mellitus type 2, g astroesophageal reflux disease, generalized osteoarthritis, peripheral vascular disease. Patient had bypass surgery of the left lower extremity done approximately 10-12 years ago with basilar surgery at [facility]. Due to complications to the surgery, patient was transferred to [facility] where she underwent a second surgery and nearly needed amputation of the left lower extremity. Patient has a chronic wound to the pretibial area has been following in the wound healing center with Melani Chahal DNP on a weekly basis. She is normally seen there on Thursday. She has completed a recent course of antibiotics according to the patient. Patient was concerned that she had increased pain and odor from the wound. She had contacted the wound center was unable to get appointment yesterday and was instructed to come in the hospital for further evaluation. Recent wound culture was positive for MSSA. Patient denies having any fever or chills. Patient presented to [facility] emergency center and found to be afebrile, heart rate 75, blood pressure 163/79, pulse ox 96% on room air. CBC was unremarkable. Electrolytes unremarkable. Creatinine 0.59. Blood sugar 63. Liver function tests were normal. Tib-fib x-ray revealed large wound on the lateral expect of the lower fibula. No sign of osteomyelitis. No fracture. Patient admitted to the [facility] floor but seen today in the ER waiting for a bed. Consult in place for Wound Center, infectious disease and vascular surgery. 10/03: Patient has been seen by vascular surgery and is scheduled for I&D today. Wound culture is in progress. Patient is complaining of soreness to the left lo wer leg. She has on the phone with Dr. Tirado's office regarding pain medication issue. Discussed nicotine patch and patient is agreeable to try using a patch here and will continue after discharge. Patient has been afebrile, heart rate 66, blood pressure 131/81, pulse ox 92% on room air. Creat inine is 2.38 which is significantly higher today from yesterday of 0.59. This may be secondary to vancomycin which is been discontinued. Metformin will be discontinued. A1C 7.9. Wheelchair will be ordered by medical case worker because patient requires a wheelchair to complete ADLs which is unable to be done with a cane or walker because of venous stasis ulcer to the left lower leg and peripheral vascular disease. 10/04: The patient is status post a [place] of the wound to the left lower extremity done by Dr. Khalil yesterday. Patient stated a very painful but she has received Dilaudid and [place]. She does seem to have some increased shortness of breath and wheezing for which nebulizer treatments will be started. Patient has been seen by Dr. Dunn and a bone scan has been ordered for today and patient is continued on Kefzol. Dosing Has Been Adjusted by Pharmacy. Patient is agreeable that she will stop smoking after she leaves the hospital. Patient has been afebrile, heart rate 84, blood pressure 111/67, pulse ox 92% on 3 L nasal cannula. Blood sugars have been on the lower side with lowest at 59, mostly in the 80s. Hemoglobin A1c came back at 7.9. Glimepiride was decreased to 1 mg daily. Local wound care is scant old. Anticipate need for IV antibiotics if bone scan is positive. BMP results are not available at 12 PM. 10/05: Patient is doing slightly but better, had her procedure with vascular had quite bit pain and discomfort with the debridement, still on 1 care, antibiotic was changed to Kefzol. Culture came back positive for staph aureus susceptible patient be continued Kefzol for now and probably oral eventually. Patient need more help and assistance also had slight increased shortness of breath require IV Lasix along with updraft treatment and more oxygen. Continue to watch symptoms closely and see if there is any further complication especially if there is any change hemodynamically. 10/06 denies any urinary complaints at this point. She does endorse going to the bathroom too often. She is here admitted for the distal atrophy left leg. Wound culture positive for MSSA. Patient is noted to have worsening kidney function with her creatinine 7.39 today. BUN 37 chloride 111. Potassium 4.6. Lyrica discontinued. Patient is currently not on any nephrotoxic agents. Continues to be cefazolin and oral flagyl. We'll continue to watch patient's creatinine for the next 24 hours 10/07 patient examined bedside. Denies any new complaints. She is currently on 1 L of nasal cannula temp of 97.3 pulse 88 respiratory rate 18 blood pressure 169/94 subclasses. WBC 7.6 platelet 271 hemoglobin 12. Creatinine is improved slightly to 7.28 BUN still high at 42 chloride 110 sodium 145. Nephrology has evaluated the patient and. Fluids discontinued. Continue to monitor for another 24 hour with plan to possible dialyse the patient if no improvement is made. Patient's blood pressure continues to be high we will increase patient's metoprolol to 25 3 times a day 10/08 patient examined at bedside. Feeling better since. Continues to require 2 L of oxygen and saturating at 94%. Patient continues to have high blood pressure systolic blood pressure 158 this clinic She denies any shortness of br eath or chest pain or GI discomfort. Patient does feel congested this morning and is unable to take a deep breath. Labs reviewed patient's creatinine has improved to 5.5 BUN is elevated at 53 chloride of 108 sodium 144 patient was hypoglycemic this morning at 60. Amaryl discontinued. Norvasc initiated at 5 mg daily REVIEW OF SYSTEMS Constitutional: No fever, no chills, no night sweats. No weight change. No weakness, fatigue or lethargy. No daytime sleepiness. Chronic pain. EENT: No headache. No blurred vision or double vision, no loss of vision. No loss of Hearing, no ringing in the ears, no dizziness. No nasal drainage or congestion. No epistaxis. No sore throat. Lungs: No shortness of breath, cough, no sputum production. No wheezing. Cardiovascular: No chest pain, no lower extremity edema. No palpitations. No paroxysmal nocturnal dyspnea. No orthopnea. No lightheadedness or dizziness. No syncopal episodes. Abdominal: No abdominal pain. No nausea, vomiting. No diarrhea. No constipation. No bloody or tarry stools.. No loss of appetite. Genitourinary: No dysuria, increased frequency, urgency. No urinary retention. Musculoskeletal: No myalgias. No muscle weakness, no gait dysfunction, no frequent falls. No back pain. No neck pain. Integumentary: Large ulcers to the left lower extremity with pain. No rash or pruritus. No unusual bruising. No change in hair or nails. Neurologic: No aphasia. No facial droop. No change in mentation. No head injury. No headache. No paralysis. No paresthesia. Psychiatric: No depression. No anxiety. No mood swings. Endocrine: No abnormal blood sugars. No weight change. Objective - Vital Signs Vital signs: Vital Signs Temp 97.8 F 10/08/20 01:49 Pulse 77 10/08/20 12:11 Resp 18 10/08/20 08:45 BP 158/88 10/08/20 08:45 Pulse Ox 94 L 10/08/20 08:45 Intake & Output 10/07/20 10/08/20 10/08/20 18:59 06:59 18:59 Intake Total 970 120 Output Total 575 1175 600 Balance 395 -4004 -600 Intake: Intake, IV Titration 250 Amount Lactated Ringers 1,000 ml 200 @ 20 mls/hr IV .Q24H [facility] Rx#:[id number] ceFAZolin 1,000 mg In 50 Sodium Chloride 0.9% 50 ml @ 100 mls/hr IVPB DAILY [facility] Rx#:[id number] Oral 720 120 Output: Urine 575 1175 600 Other: Voiding Method Bedside Commode # Voids 1 1 1 # Bowel Movements 1 1 - Exam Gen: This is a 55-year-old morbidly obese female. She is resting in bed and appears to be uncomfortable secondary to pain. HEENT: Head is atraumatic, normocephalic. Pupils equal, round. Sclerae is anicteric. NECK: Supple. No JVD. No lymphadenopathy. No thyromegaly. LUNGS: Clear to auscultation. No wheezes or rhonchi. No intercostal retractions. HEART: Regular rate and rhythm. No murmur. ABDOMEN: Soft. Bowel sounds are present. No masses. No tenderness. EXTREMITIES: No pedal edema. No calf tenderness. Dressing in place to the left lower extremity for pretibial ulcers. NEUROLOGICAL: Patient is awake, alert and oriented x3. Cranial nerves 2 through 12 are grossly intact. - Labs CBC & Chem 7: 10/07/20 05:08 10/08/20 08:51 Labs: Abnormal Lab Results - Last 24 Hours (Table) 10/07/20 10/08/20 10/08/20 Range/Units 20:11 06:07 08:51 Chloride 108 H (98-107) mmol/L BUN 53 H (7-17) mg/dL Creatinine 5.55 H (0.52-1.04) mg/dL Glucose 60 L (74-99) mg/dL POC Glucose (mg/dL) 114 H 73 L (75-99) mg/dL 10/08/20 Range/Units 13:20 Chloride (98-107) mmol/L BUN (7-17) mg/dL Creatinine (0.52-1.04) mg/dL Glucose (74-99) mg/dL POC Glucose (mg/dL) 73 L (75-99) mg/dL Microbiology - Last 24 Hours (Table) 10/01/20 18:38 Blood Culture - Final Blood No Growth after 144 hours 10/01/20 18:38 Blood Culture - Final Blood No Growth after 144 hours Assessment and Plan Plan: 1. Venous stasis ulcer with cellulitis, failed outpatient treatment. Wound culture positive for MSSA status post debridement on by vascular, continue Kefzol and oral Flagyl and continue wound care as well. Bone scan negative for osteomyelitis 2. Acute kidney injury most likely secondary to vancomycin which has been discontinued. Metformin discontinued. Patient did not get a dose of metformin or Lyrica while in the hospital. She did receive 1 dose of vancomycin which was discontinued on admission. Avoid nephrotoxic agents. Repeat BMP in the morning. Possible dialysis per nephrology 3. COPD, slightly red worsening symptoms, continue O2 between 2-3 L along with updraft treatment on regular basis. 4. Hypertension. Lopressor increased to 25 3 times a day, Aldactone discontinued due to worsening kidney function was getting at 5 mg daily 5. Peripheral vascular disease. Continue aspirin 81 mg daily, Lipitor 80 mg daily. 6. Diabetes mellitus type 2. Metformin discontinued, Amaryl discontinued due to hypoglycemia continue NovoLog scale before meals and at bedtime, A1c 7.9. 7. GI prophylaxis. Continue Protonix. 8. Hyperlipidemia. Continue Lipitor 80 mg at bedtime. 9. Chronic pain. Continue Zanaflex 4 mg twice daily as needed, [place] 10 3 times daily. CODE STATUS: Full code.
[2020-10-08] MEDS: amLODIPine 5 MG TAB PO SCH (14:48)
[2020-10-08] MEDS: LACTATED RINGERS 1,000 ML IV SCH (16:11)
--- NOTE | 2020-10-08 16:56 | P.PN ---
Subjective Progress Note Date: 10/08/20 Principal diagnosis: left lower extremity wounds Patient seen and examined. Doing well. Pain controlled. Dressings changed last night. No fevers, chills, chest pain or shortness of breath. Objective - Vital Signs Vital signs: Vital Signs Temp 98.1 F 10/08/20 14:20 Pulse 73 10/08/20 14:20 Resp 16 10/08/20 14:20 BP 154/84 10/08/20 14:20 Pulse Ox 94 L 10/08/20 14:20 Intake & Output 10/07/20 10/08/20 10/08/20 18:59 06:59 18:59 Intake Total 970 120 Output Total 575 1175 600 Balance 395 -1055 -600 Intake: Intake, IV Titration 250 Amount Lactated Ringers 1,000 ml 200 @ 20 mls/hr IV .Q24H [facility] Rx#:[id number] ceFAZolin 1,000 mg In 50 Sodium Chloride 0.9% 50 ml @ 100 mls/hr IVPB DAILY [facility] Rx#:[id number] Oral 720 120 Output: Urine 575 1175 600 Other: Voiding Method Bedside Commode # Voids 1 1 2 # Bowel Movements 1 1 - Exam left lower extremity wounds with dressings in place. Some drainage noted. - Constitutional General appearance: Present: morbidly obese, no acute distress - Respiratory Respiratory: bilateral: CTA - Cardiovascular Rhythm: regular - Psychiatric Psychiatric: Present: appropriate affect - Labs CBC & Chem 7: 10/07/20 05:08 10/08/20 08:51 Labs: Abnormal Lab Results - Last 24 Hours (Table) 10/07/20 10/08/20 10/08/20 Range/Units 20:11 06:07 08:51 Chloride 108 H (98-107) mmol/L BUN 53 H (7-17) mg/dL Creatinine 5.55 H (0.52-1.04) mg/dL Glucose 60 L (74-99) mg/dL POC Glucose (mg/dL) 114 H 73 L (75-99) mg/dL 10/08/20 Range/Units 13:20 Chloride (98-107) mmol/L BUN (7-17) mg/dL Creatinine (0.52-1.04) mg/dL Glucose (74-99) mg/dL POC Glucose (mg/dL) 73 L (75-99) mg/dL Microbiology - Last 24 Hours (Table) 10/01/20 18:38 Blood Culture - Final Blood No Growth after 144 hours 10/01/20 18:38 Blood Culture - Final Blood No Growth after 144 hours Assessment and Plan Assessment: 1. Chronic venous insufficiency with left lower extremity ulceration 2. Nonpressure chronic ulcer of left calf with fat layer exposure s/p debridement 3. Type 2 diabetes with other skin ulcer 4. Morbid Obesity Plan: Continue local wound care with daily dressing changes with Santyl. Elevate lower extremity and recommend lacy wraps over dressings if able to tolerate. Wound care to follow. No further surgical intervention at this time.
[2020-10-08 17:49] LABS: Glucose,Whole Blood 60 mg/dL (75-99)
[2020-10-08 18:01] LABS: Glucose,Whole Blood 83 mg/dL (75-99)
[2020-10-08 18:40] LABS: Glucose,Whole Blood 96 mg/dL (75-99)
[2020-10-08 20:26] LABS: Glucose,Whole Blood 78 mg/dL (75-99)
--- NOTE | 2020-10-08 21:17 | PN ---
PROGRESS NOTE DATE OF SERVICE: 10/08/2020 REASON FOR FOLLOWUP: Left leg wound infection. INTERVAL HISTORY: The patient is afebrile. The patient is breathing ( ). Denies any chest pain, shortness of breath. No cough. No abdominal pain. Pain to the left leg is currently controlled. PHYSICAL EXAMINATION: Blood pressure 154/84, pulse of 73, temperature 98.1. She is 94% on 2 L nasal cannula. General description is a middle-aged female lying in in no distress. Respiratory system: Unlabored breathing, clear to auscultation anteriorly. Heart S1, S2. Regular rate and rhythm. Abdomen soft, no tenderness. Left leg is currently dressed up. No obvious drainage on the dressing. LABS: BUN of 53, creatinine 5.5. DIAGNOSTIC IMPRESSION AND PLAN: Patient with left leg wound with secondary cellulitis, culture positive for MSSA, covered with cefazolin. Local care with Santyl. Continue supportive care. MMODL / IJN: [id number] /
[2020-10-08] MEDS: ATORVASTATIN 80 MG TAB PO SCH (21:43)
[2020-10-08] MEDS: MONTELUKAST 10 MG TAB PO SCH (21:43)
[2020-10-08 22:38] LABS: Glucose,Whole Blood 86 mg/dL (75-99)
[2020-10-09] MEDS: LACTATED RINGERS 1,000 ML IV SCH (01:30)
[2020-10-09 01:37] LABS: Glucose,Whole Blood 72 mg/dL (75-99)
[2020-10-09 05:33] LABS: Glucose,Whole Blood 125 mg/dL (75-99)
[2020-10-09 06:18] LABS: Glucose,Whole Blood 122 mg/dL (75-99)
[2020-10-09] MEDS: INSULIN ASPART (NovoLOG) 100 UNIT/ML VIAL SQ SCH ×4 (06:20→20:39)
[2020-10-09] MEDS: IPRATROPIUM-ALBUTEROL 3 ML NEB INHALATION SCH ×3 (08:51→19:43)
[2020-10-09] MEDS: HEPARIN SODIUM,PORCINE/PF 5,000 UNIT/0.5 ML SYRINGE SQ SCH ×3 (09:08→23:59)
[2020-10-09] MEDS: ASPIRIN 81 MG PO SCH (09:14)
[2020-10-09] MEDS: METOPROLOL TARTRATE 25 MG TAB PO SCH ×3 (09:14→21:30)
[2020-10-09] MEDS: PANTOPRAZOLE 40 MG TABLET PO SCH (09:14)
[2020-10-09] MEDS: HYDROcodone/APAP 10-325MG 1 EACH TAB PO SCH ×3 (09:15→21:30)
[2020-10-09] MEDS: CHOLECALCIFEROL 25 MCG (1000 IU) TABLET PO SCH (09:17)
[2020-10-09] MEDS: metroNIDAZOLE 500 MG TAB PO SCH ×3 (09:17→21:31)
[2020-10-09] MEDS: NICOTINE 14MG/24HR PATCH TRANSDERM SCH (09:19)
[2020-10-09] MEDS: amLODIPine 5 MG TAB PO SCH (09:21)
[2020-10-09 10:42] LABS: Calcium 9.6 mg/dL (8.4-10.2)
[2020-10-09 10:49] LABS: Potassium 4.4 mmol/L (3.5-5.1)
[2020-10-09] MEDS: OXYMETAZOLINE 0.05% NASL SPRAY 1 SPRAY BOTTLE NASAL SCH ×2 (12:30→20:27)
[2020-10-09 12:46] LABS: Glucose,Whole Blood 144 mg/dL (75-99)
--- NOTE | 2020-10-09 14:08 | P.PN ---
Subjective Progress Note Date: 10/09/20 HISTORY OF PRESENT ILLNESS This is a 55 year old female patient of Dr. Noble with past medical history of COPD, fibromyalgia, hypertension, hyperlipidemia, diabetes mellitus type 2, g astroesophageal reflux disease, generalized osteoarthritis, peripheral vascular disease. Patient had bypass surgery of the left lower extremity done approximately 10-12 years ago with basilar surgery at [facility]. Due to complications to the surgery, patient was transferred to [facility] where she underwent a second surgery and nearly needed amputation of the left lower extremity. Patient has a chronic wound to the pretibial area has been following in the wound healing center with Melani Chahal DNP on a weekly basis. She is normally seen there on Thursday. She has completed a recent course of antibiotics according to the patient. Patient was concerned that she had increased pain and odor from the wound. She had contacted the wound center was unable to get appointment yesterday and was instructed to come in the hospital for further evaluation. Recent wound culture was positive for MSSA. Patient denies having any fever or chills. Patient presented to [facility] emergency center and found to be afebrile, heart rate 75, blood pressure 163/79, pulse ox 96% on room air. CBC was unremarkable. Electrolytes unremarkable. Creatinine 0.59. Blood sugar 63. Liver function tests were normal. Tib-fib x-ray revealed large wound on the lateral expect of the lower fibula. No sign of osteomyelitis. No fracture. Patient admitted to the [facility] floor but seen today in the ER waiting for a bed. Consult in place for Wound Center, infectious disease and vascular surgery. 10/03: Patient has been seen by vascular surgery and is scheduled for I&D today. Wound culture is in progress. Patient is complaining of soreness to the left lo wer leg. She has on the phone with Dr. Tirado's office regarding pain medication issue. Discussed nicotine patch and patient is agreeable to try using a patch here and will continue after discharge. Patient has been afebrile, heart rate 66, blood pressure 131/81, pulse ox 92% on room air. Creat inine is 2.38 which is significantly higher today from yesterday of 0.59. This may be secondary to vancomycin which is been discontinued. Metformin will be discontinued. A1C 7.9. Wheelchair will be ordered by director case because patient requires a wheelchair to complete ADLs which is unable to be done with a cane or walker because of venous stasis ulcer to the left lower leg and peripheral vascular disease. 10/04: The patient is status post debridement of the wound to the left lower extremity done by Dr. Khalil yesterday. Patient stated a very painful but she has received Dilaudid and Belden. She does seem to have some increased shortness of breath and wheezing for which nebulizer treatments will be started. Patient has been seen by Dr. Dunn and a bone scan has been ordered for today and patient is continued on Kefzol. Dosing Has Been Adjusted by Pharmacy. Patient is agreeable that she will stop smoking after she leaves the hospital. Patient has been afebrile, heart rate 84, blood pressure 111/67, pulse ox 92% on 3 L nasal cannula. Blood sugars have been on the lower side with lowest at 59, mostly in the 80s. Hemoglobin A1c came back at 7.9. Glimepiride was decreased to 1 mg daily. Local wound care is scant old. Anticipate need for IV antibiotics if bone scan is positive. BMP results are not available at 12 PM. 10/05: Patient is doing slightly but better, had her procedure with vascular had quite bit pain and discomfort with the debridement, still on 1 care, antibiotic was changed to Kefzol. Culture came back positive for staph aureus susceptible patient be continued Kefzol for now and probably oral eventually. Patient need more help and assistance also had slight increased shortness of breath require IV Lasix along with updraft treatment and more oxygen. Continue to watch symptoms closely and see if there is any further complication especially if there is any change hemodynamically. 10/06 denies any urinary complaints at this point. She does endorse going to the bathroom too often. She is here admitted for the distal atrophy left leg. Wound culture positive for MSSA. Patient is noted to have worsening kidney function with her creatinine 7.39 today. BUN 37 chloride 111. Potassium 4.6. Lyrica discontinued. Patient is currently not on any nephrotoxic agents. Continues to be cefazolin and oral flagyl. We'll continue to watch patient's creatinine for the next 24 hours 10/07 patient examined bedside. Denies any new complaints. She is currently on 1 L of nasal cannula temp of 97.3 pulse 88 respiratory rate 18 blood pressure 169/94 subclasses. WBC 7.6 platelet 271 hemoglobin 12. Creatinine is improved slightly to 7.28 BUN still high at 42 chloride 110 sodium 145. Nephrology has evaluated the patient and. Fluids discontinued. Continue to monitor for another 24 hour with plan to possible dialyse the patient if no improvement is made. Patient's blood pressure continues to be high we will increase patient's metoprolol to 25 3 times a day 10/08 patient examined at bedside. Feeling better since. Continues to require 2 L of oxygen and saturating at 94%. Patient continues to have high blood pressure systolic blood pressure 158 this clinic She denies any shortness of galen ath or chest pain or GI discomfort. Patient does feel congested this morning and is unable to take a deep breath. Labs reviewed patient's creatinine has improved to 5.5 BUN is elevated at 53 chloride of 108 sodium 144 patient was hypoglycemic this morning at 60. Amaryl discontinued. Norvasc initiated at 5 mg daily 10/09: The patient states that she is having occasional nosebleeds and Flonase did not seem to help. Afrin added instead. She is having a little cough with sputum production and slight wheezing. Chest x-ray ordered. She has been afebrile, heart rate 77, blood pressure 164/82, pulse ox 95% on 2 L nasal cannula. Repeat blood work reveals sodium 143, potassium 4.4, chloride 108, CO2 25, BUN 55 and creatinine 3.71. Blood sugars are running between 122 and 162. Noted that renal function is significantly improved from yesterday. Dr. Dunn is planning for oral antibiotics at the time of discharge. Patient is followed by PT and OT. Plan is for discharge to [facility] most likely tomorrow if renal function continues to improve. REVIEW OF SYSTEMS Constitutional: No fever, no chills, no night sweats. No weight change. No weakness, fatigue or lethargy. No daytime sleepiness. Chronic pain. EENT: No headache. No blurred vision or double vision, no loss of vision. No loss of Hearing, no ringing in the ears, no dizziness. No nasal drainage or congestion. Reports epistaxis. No sore throat. Lungs: No shortness of breath, cough, no sputum production. No wheezing. Cardiovascular: No chest pain, no lower extremity edema. No palpitations. No paroxysmal nocturnal dyspnea. No orthopnea. No lightheadedness or dizziness. No syncopal episodes. Abdominal: No abdominal pain. No nausea, vomiting. No diarrhea. No constipation. No bloody or tarry stools.. No loss of appetite. Genitourinary: No dysuria, increased frequency, urgency. No urinary retention. Musculoskeletal: No myalgias. No muscle weakness, no gait dysfunction, no freq uent falls. No back pain. No neck pain. Integumentary: Large ulcers to the left lower extremity with pain. No rash or pruritus. No unusual bruising. No change in hair or nails. Neurologic: No aphasia. No facial droop. No change in mentation. No head injury. No headache. No paralysis. No paresthesia. Psychiatric: No depression. No anxiety. No mood swings. Endocrine: No abnormal blood sugars. No weight change. PHYSICAL EXAMINATION Gen: This is a 55-year-old morbidly obese female. She is resting in bed and appears to be comfortable. HEENT: Head is atraumatic, normocephalic. Pupils equal, round. Sclerae is anicteric. NECK: Supple. No JVD. No lymphadenopathy. No thyromegaly. LUNGS: Clear to auscultation. No wheezes or rhonchi. No intercostal re tractions. HEART: Regular rate and rhythm. No murmur. ABDOMEN: Soft. Bowel sounds are present. No masses. No tenderness. EXTREMITIES: No pedal edema. No calf tenderness. Dressing in place to the left lower extremity for pretibial ulcers. NEUROLOGICAL: Patient is awake, alert and oriented x3. Cranial nerves 2 through 12 are grossly intact. ASSESSMENT AND PLAN 1. Venous stasis and diabetic ulcer, failed outpatient treatment. [facility], consults with Wound Center, infectious disease, vascular surgery appreciated. Continue Kefzol 1 g IV piggyback every 12 hours and Flagyl 500 mg 3 times daily by infectious disease. Recent wound cultures MSSA. Continue local wound care with Santyl. 2. Acute kidney injury most likely secondary to vancomycin which has been discontinued. Metformin will be discontinued. Avoid nephrotoxic agents. Repeat BMP in the morning. Nephrology consult appreciated. 3. COPD, stable without exacerbation. Continue Singulair. 4. Hypertension. Continue Lopressor increased to 25mg three times daily, s tarted amlodipine 5 mg daily. Aldactone discondinuted due to renal function. 5. Peripheral vascular disease. Continue aspirin 81 mg daily, Lipitor 80 mg daily. 6. Diabetes mellitus type 2. Metformin discontinued, Amaryl discontinued due to hypoglycemia. Continue NovoLog scale before meals and at bedtime, A1c 7.9. 7. GI prophylaxis. Continue Protonix. 8. Hyperlipidemia. Continue Lipitor 80 mg at bedtime. 9. Chronic pain. Continue Zanaflex 4 mg twice daily as needed, Belden 10 3 time s daily. 10. DVT prophylaxis. Heparin subcu. 10. COVID-19 testing negative. Patient has been hospitalized during a pandemic. DISCHARGE PLAN [facility] in the next 24-48 hours. Impression and plan of care have been directed as dictated by the signing physician. Alayna Acosta nurse practitioner acting as scribe for signing physician. Objective - Vital Signs Vital signs: Vital Signs Temp 97.9 F 10/09/20 08:10 Pulse 77 10/09/20 09:03 Resp 18 10/09/20 08:10 BP 164/82 10/09/20 08:10 Pulse Ox 96 10/09/20 08:51 Intake & Output 10/08/20 10/09/20 10/09/20 18:59 06:59 18:59 Intake Total 1000 360 Output Total 900 700 Balance 100 -340 Intake: Intake, IV Titration 250 Amount Lactated Ringers 1,000 ml 200 @ 20 mls/hr IV .Q24H RIGO Rx#:[id number] ceFAZolin 1,000 mg In 50 Sodium Chloride 0.9% 50 ml @ 100 mls/hr IVPB DAILY [facility]IGO Rx#:[id number] Oral 750 360 Output: Urine 900 700 Other: Voiding Method Bedside Commode # Voids 1 1 # Bowel Movements 1 1 - Labs CBC & Chem 7: 10/07/20 05:08 10/09/20 09:34 Labs: Abnormal Lab Results - Last 24 Hours (Table) 10/08/20 10/08/20 10/09/20 Range/Units 13:20 17:44 01:36 POC Glucose (mg/dL) 73 L 60 L 72 L (75-99) mg/dL 10/09/20 10/09/20 Range/Units 05:31 06:17 POC Glucose (mg/dL) 125 H 122 H (75-99) mg/dL
[2020-10-09] MEDS: COLLAGENASE 250 UNIT/GM OINTMENT 30 GM TUBE TOPICAL SCH (14:30)
[2020-10-09] MEDS ORDERED: FUROSEMIDE 10 MG/ML 4 ML VIAL IV STA (14:44)
[2020-10-09 15:52] LABS: Anti-DNA, DS unit <1.0 IU/mL; DNA Double-Stranded NEGATIVE (NEGATIVE)
--- NOTE | 2020-10-09 17:27 | XR ---
EXAMINATION TYPE: XR chest 2V DATE OF EXAM: 10/09/2020 COMPARISON: Chest x-ray 10/06/2020 HISTORY: Wheezing, productive cough TECHNIQUE: Frontal and lateral views of the chest are obtained. FINDINGS: The heart appears enlarged as on prior. There is no evident pneumothorax or pleural effusi on. Suspect there is bronchial wall thickening. Interstitium is mildly increased. IMPRESSION: Findings are similar to prior exam. Correlate for reactive airways disease or bronchioli tis, there is cardiomegaly, consider interstitial pneumonia or edema, exam somewhat limited technical ly due to patient body habitus
[2020-10-09 17:38] LABS: Glucose,Whole Blood 119 mg/dL (75-99)
--- NOTE | 2020-10-09 18:08 | PN ---
PROGRESS NOTE Patient is seen for followup for acute kidney injury. Her renal function continues to improve. Serum creatinine is down to 3.7 today. This morning patient is complaining of some puffiness in the hands and legs. She denies any shortness of breath. PHYSICAL EXAMINATION: On examination today, blood pressure 159/85, heart rate 80 per minute, she is afebrile. Examination of the heart S1, S2. Examination of the lungs, bilateral breath sounds are heard. Abdomen is soft, nontender, obese. Examination of lower extremities shows 1+ edema mainly in the left lower extremity. LAB: Show sodium 143, potassium 4.4, chloride 108, BUN 55, creatinine 3.7. ASSESSMENT: 1. Acute kidney injury, acute tubular necrosis versus vancomycin toxicity, currently improving with improving renal function as well. 2. Volume overload. I will give her a dose of IV Lasix today. 3. Left leg cellulitis and wound infection, maintained on antibiotics. 4. Dyslipidemia. 5. Obesity. PLAN: IV Lasix x1 today. Continue off IV fluids. MMODL / IJN: [id number] /
[2020-10-09] MEDS: ATORVASTATIN 80 MG TAB PO SCH (20:27)
[2020-10-09] MEDS: MONTELUKAST 10 MG TAB PO SCH (20:27)
--- NOTE | 2020-10-09 20:29 | PN ---
PROGRESS NOTE DATE OF SERVICE: 10/09/2020 REASON FOR FOLLOWUP: Left leg infected wound and cellulitis. INTERVAL HISTORY: Patient is afebrile. The patient is breathing comfortably. Patient denies having any chest pain. No shortness of breath or cough. No nausea. No abdominal pain. Pain to the left leg is currently controlled. PHYSICAL EXAMINATION: Blood pressure 159/85, pulse of 80, temperature 100.9. She is 95% on 2 L nasal cannula. General description is a middle-aged female lying in in no distress. Respiratory system: Unlabored breathing, clear to auscultation anteriorly. Heart S1, S2. Regular rate and rhythm. Abdomen soft, no tenderness. Left leg is currently dressed, no obvious drainage on the dressing. LABS: BUN 55, creatinine 3.71. DIAGNOSTIC IMPRESSION AND PLAN: Patient with left leg wound with secondary cellulitis. Culture positive for MSSA. The patient is on Cefazolin. Plan is to finish therapy with oral Keflex for 10 days. Local care to continue with Santyl. Plan of care was discussed with the admitting physician. MMODL / IJN: [id number] /
[2020-10-09 20:37] LABS: Glucose,Whole Blood 149 mg/dL (75-99)
[2020-10-10 06:15] LABS: Glucose,Whole Blood 103 mg/dL (75-99)
[2020-10-10] MEDS: INSULIN ASPART (NovoLOG) 100 UNIT/ML VIAL SQ SCH ×2 (06:16→12:29)
[2020-10-10 06:47] LABS: Calcium 9.1 mg/dL (8.4-10.2); Potassium 3.5 mmol/L (3.5-5.1)
[2020-10-10] MEDS: IPRATROPIUM-ALBUTEROL 3 ML NEB INHALATION SCH ×2 (08:51→12:18)
[2020-10-10] MEDS: amLODIPine 5 MG TAB PO SCH (09:05)
[2020-10-10] MEDS: HEPARIN SODIUM,PORCINE/PF 5,000 UNIT/0.5 ML SYRINGE SQ SCH (09:05)
[2020-10-10 09:06] VITALS: TEMP 98
[2020-10-10] MEDS: PANTOPRAZOLE 40 MG TABLET PO SCH (09:06)
[2020-10-10] MEDS: ASPIRIN 81 MG PO SCH (09:06)
[2020-10-10] MEDS: HYDROcodone/APAP 10-325MG 1 EACH TAB PO SCH (09:06)
[2020-10-10] MEDS: CHOLECALCIFEROL 25 MCG (1000 IU) TABLET PO SCH (09:06)
[2020-10-10] MEDS: OXYMETAZOLINE 0.05% NASL SPRAY 1 SPRAY BOTTLE NASAL SCH (09:08)
[2020-10-10] MEDS: NICOTINE 14MG/24HR PATCH TRANSDERM SCH (09:08)
[2020-10-10] MEDS: metroNIDAZOLE 500 MG TAB PO SCH (09:13)
[2020-10-10] MEDS: METOPROLOL TARTRATE 25 MG TAB PO SCH (09:13)
--- NOTE | 2020-10-10 10:28 | P.DS ---
Providers Date of admission: 10/02/20 09:10 Expected date of discharge: 10/10/20 Attending physician: Jim Nolasco Consults: 10/01/20 20:21 Consult Physician Urgent Consulting Provider: Ramiro Dunn Consult Reason/Comments: Leg wound Do you want consulting provider notified?: Yes 10/02/20 08:42 Consult Physician Routine Consulting Provider: Genet Khalil Consult Reason/Comments: vascular disease, chronic wound L pretib Do you want consulting provider notified?: Yes 10/05/20 11:18 Consult Physician Routine Consulting Provider: Anthony Vanegas Consult Reason/Comments: AKF Do you want consulting provider notified?: Yes Primary care physician: Aryan Noble [facility] Course: HISTORY OF PRESENT ILLNESS This is a 55 year old female patient of Dr. Noble with past medical history of COPD, fibromyalgia, hypertension, hyperlipidemia, diabetes mellitus type 2, gastroesophageal reflux disease, generalized osteoarthritis, peripheral vascular disease. Patient had bypass surgery of the left lower extremity done approximately 10-12 years ago with basilar surgery at [facility]. Due to complications to the surgery, patient was transferred to [facility] where she underwent a second surgery and nearly needed amputation of the left lower extremity. Patient has a chronic wound to the pretibial area has been following in the wound healing center with Melani Chahal DNP on a weekly basis. She is normally seen there on Thursday. She has completed a recent course of antibiotics according to the patient. Patient was concerned that she had increased pain and odor from the wound. She had contacted the wound center was unable to get appointment yesterday and was instructed to come in the hospital for further evaluation. Recent wound culture was positive for MSSA. Patient denies having any fever or chills. Patient presented to [facility] emergency center and found to be afebrile, heart rate 75, blood pressure 163/79, pulse ox 96% on room air. CBC was unremarkable. Electrolytes unremarkable. Creatinine 0.59. Blood sugar 63. Liver function tests were normal. Tib-fib x-ray revealed large wound on the lateral expect of the lower fibula. No sign of osteomyelitis. No fracture. Patient admitted to the [facility] floor but seen today in the ER waiting for a bed. Consult in place for Wound Center, infectious disease and vascular surgery. 10/03: Patient has been seen by vascular surgery and is scheduled for I&D today. Wound culture is in progress. Patient is complaining of soreness to the left lower leg. She has on the phone with Dr. Tirado's office regarding pain medication issue. Discussed nicotine patch and patient is agreeable to try using a patch here and will continue after discharge. Patient has been afebrile, heart rate 66, blood pressure 131/81, pulse ox 92% on room air. Creatinine is 2.38 which is significantly higher today from yesterday of 0.59. This may be secondary to vancomycin which is been discontinued. Metformin will be discontinued. A1C 7.9. Wheelchair will be ordered by director of casework services because patient requires a wheelchair to complete ADLs which is unable to be done with a cane or walker because of venous stasis ulcer to the left lower leg and peripheral vascular disease. 10/04: The patient is status post debridement of the wound to the left lower extremity done by Dr. Khalil yesterday. Patient stated a very painful but she has received Dilaudid and Mio. She does seem to have some increased shortness of breath and wheezing for which nebulizer treatments will be started. Patient has been seen by Dr. Dunn and a bone scan has been ordered for today and patient is continued on Kefzol. Dosing Has Been Adjusted by Pharmacy. Patient is agreeable that she will stop smoking after she leaves the hospital. Patient has been afebrile, heart rate 84, blood pressure 111/67, pulse ox 92% on 3 L nasal cannula. Blood sugars have been on the lower side with lowest at 59, mostly in the 80s. Hemoglobin A1c came back at 7.9. Glimepiride was decreased to 1 mg daily. Local wound care is scant old. Anticipate need for IV antibiotics if bone scan is positive. BMP results are not available at 12 PM. 10/05: Patient is doing slightly but better, had her procedure with vascular had quite bit pain and discomfort with the debridement, still on 1 care, antibiotic was changed to Kefzol. Culture came back positive for staph aureus susceptible patient be continued Kefzol for now and probably oral eventually. Patient need more help and assistance also had slight increased shortness of breath require IV Lasix along with updraft treatment and more oxygen. Continue to watch symptoms closely and see if there is any further complication e specially if there is any change hemodynamically. 10/06 denies any urinary complaints at this point. She does endorse going to the bathroom too often. She is here admitted for the distal atrophy left leg. Wound culture positive for MSSA. Patient is noted to have worsening kidney function with her creatinine 7.39 today. BUN 37 chloride 111. Potassium 4.6. Lyrica discontinued. Patient is currently not on any nephrotoxic agents. Continues to be cefazolin and oral flagyl. We'll continue to watch patient's creatinine for the next 24 hours 10/07 patient examined bedside. Denies any new complaints. She is currently on 1 L of nasal cannula temp of 97.3 pulse 88 respiratory rate 18 blood pressure 169/94 subclasses. WBC 7.6 platelet 271 hemoglobin 12. Creatinine is improved slightly to 7.28 BUN still high at 42 chloride 110 sodium 145. Nephrology has evaluated the patient and. Fluids discontinued. Continue to monitor for another 24 hour with plan to possible dialyse the patient if no improvement is made. Patient's blood pressure continues to be high we will increase patient's metoprolol to 25 3 times a day 10/08 patient examined at bedside. Feeling better since. Continues to require 2 L of oxygen and saturating at 94%. Patient continues to have high blood pressure systolic blood pressure 158 this clinic She denies any shortness of breath or chest pain or GI discomfort. Patient does feel congested this morning and is unable to take a deep breath. Labs reviewed patient's creatinine has improved to 5.5 BUN is elevated at 53 chloride of 108 sodium 144 patient was hypoglycemic this morning at 60. Amaryl discontinued. Norvasc initiated at 5 mg daily 10/09: The patient states that she is having occasional nosebleeds and Flonase did not seem to help. Afrin added instead. She is having a little cough with sputum production and slight wheezing. Chest x-ray ordered. She has been afebrile, heart rate 77, blood pressure 164/82, pulse ox 95% on 2 L nasal cannula. Repeat blood work reveals sodium 143, potassium 4.4, chloride 108, CO2 25, BUN 55 and creatinine 3.71. Blood sugars are running between 122 and 162. Noted that renal function is significantly improved from yesterday. Dr. Dunn is planning for oral antibiotics at the time of discharge. Patient is followed by PT and OT. Plan is for discharge to [facility] most likely tomorrow if renal function continues to improve. 10/10: Patient denies any complaints today. Pain controlled. Patient has been afebrile, heart rate 80, blood pressure 158/95. Previous blood pressure 115/72, pulse ox 87% on room air with activity. Patient will require home oxygen therapy to manage her COPD. Repeat blood work reveals normal electrolytes, BUN 58 and creatinine 2.47. Blood sugars are running between 103 and 171. Wound culture positive for MSSA. Dr. Dunn has recommended Keflex for 10 day course and continue Santyl for local wound care. Repeat chest x-ray reveals findings similar to prior exam. Correlate for reactive airway disease or bronchiolitis. There is cardiomegaly, consider interstitial pneumonia or edema, exam limited due to technique and body habitus. Patient states that she is going home and does not require home care. She is not interested in subacute rehab. Patient will will be discharged home today in stable condition. Repeat blood work on Thursday. ASSESSMENT AND PLAN 1. Venous stasis and diabetic ulcer, failed outpatient treatment. 2. Acute kidney injury most likely secondary to vancomycin which has been discontinued. 3. COPD, stable without exacerbation. 4. Hypertension. 5. Peripheral vascular disease. 6. Diabetes mellitus type 2. 7. Interstital pneumonitis and bronchitis 8. Hyperlipidemia. 9. Chronic pain. 10. Possible obstructive sleep apnea. Recommend OP sleep study. 11. Hypoxic respiratory failure requiring home oxygen therapy. DISCHARGE PLAN Home with [facility] Impression and plan of care have been directed as dictated by the signing physician. Alayna Acosta nurse practitioner acting as scribe for signing physician. Sit Patient Condition at Discharge: Good Plan - Discharge Summary Discharge Rx Participant: No New Discharge Prescriptions: New Cephalexin [Keflex] 500 mg PO Q8HR 10 Days #30 cap Metoprolol Tartrate [Lopressor] 25 mg PO TID #90 tab Oxymetazoline 0.05% Nasl [place] [Afrin 0.05% Nasal [place]] 2 spray NASAL BID #1 bottle Nicotine 14Mg/24Hr Patch [Habitrol] 1 patch TRANSDERM DAILY #30 patch amLODIPine [Norvasc] 5 mg PO DAILY #30 tab Continue Montelukast [Singulair] 10 mg PO HS Aspirin 81 mg PO DAILY Cholecalciferol (Vitamin D3) [Vitamin D3] 2,000 unit PO DAILY Vitamin B Complex 1 cap PO DAILY Atorvastatin [Lipitor] 80 mg PO HS #30 tab tiZANidine [Zanaflex] 4 mg PO BID PRN PRN Reason: Pain HYDROcodone/APAP 10-325MG [Mio 10-325] 1 tab PO TID Collagenase [Santyl] 1 applic TOPICAL DAILY Glimepiride [Amaryl] 2 mg PO DAILY Omeprazole 20 mg PO DAILY Discontinued Pregabalin [Lyrica CR] 165 mg PO BID Ibuprofen [Motrin] 800 mg PO Q8H PRN PRN Reason: Pain Metoprolol Tartrate [Lopressor] 12.5 mg PO DAILY Spironolactone 25 mg PO DAILY Furosemide [Lasix] 20 mg PO DAILY PRN PRN Reason: Edema metFORMIN HCL [Glucophage] 500 mg PO BID Discharge Medication List Aspirin 81 mg PO DAILY 04/08/15 [History] Montelukast [Singulair] 10 mg PO HS 04/08/15 [History] Cholecalciferol (Vitamin D3) [Vitamin D3] 2,000 unit PO DAILY 07/05/17 [History] Vitamin B Complex 1 cap PO DAILY 07/05/17 [History] Atorvastatin [Lipitor] 80 mg PO HS #30 tab 07/08/17 [Rx] Collagenase [Santyl] 1 applic TOPICAL DAILY 10/01/20 [History] Glimepiride [Amaryl] 2 mg PO DAILY 10/01/20 [History] HYDROcodone/APAP 10-325MG [Mio 10-325] 1 tab PO TID 10/01/20 [History] Omeprazole 20 mg PO DAILY 10/01/20 [History] tiZANidine [Zanaflex] 4 mg PO BID PRN 10/01/20 [History] Cephalexin [Keflex] 500 mg PO Q8HR 10 Days #30 cap 10/10/20 [Rx] Metoprolol Tartrate [Lopressor] 25 mg PO TID #90 tab 10/10/20 [Rx] Nicotine 14Mg/24Hr Patch [Habitrol] 1 patch TRANSDERM DAILY #30 patch 10/10/20 [Rx] Oxymetazoline 0.05% Nasl [place] [Afrin 0.05% Nasal [place]] 2 spray NASAL BID #1 bottle 10/10/20 [Rx] amLODIPine [Norvasc] 5 mg PO DAILY #30 tab 10/10/20 [Rx] Follow up Appointment(s)/Referral(s): Kassy Sapp MD [STAFF PHYSICIAN] - 1 Week [facility], [NON-STAFF] - 1-2 Days Aryan Noble MD [Primary Care Provider] - 1-2 days Ramiro Dunn MD [STAFF PHYSICIAN] - 1 Week Ambulatory/Diagnostic Orders: Basic Metabolic Panel [LAB.AMB] Location: None Selected Complete Blood Count w/diff [LAB.AMB] Location: None Selected Activity/Diet/Wound Care/Special Instructions: Wound Center with Melani. Discharge Disposition: HOME SELF-CARE
[2020-10-10 11:49] VITALS: RESP 18
[2020-10-10 12:09] LABS: Glucose,Whole Blood 171 mg/dL (75-99)
--- NOTE | 2020-10-10 13:11 | PN ---
PROGRESS NOTE DATE OF SERVICE: 10/10/2020 REASON FOR FOLLOWUP: Left leg wound and cellulitis. INTERVAL HISTORY: The patient is currently afebrile. The patient is breathing comfortably. Patient denies having any chest pain. No shortness of breath or cough. Left neck pain is currently controlled. No vomiting or diarrhea. PHYSICAL EXAMINATION: Blood pressure is 158/95 with a pulse of 96. Temperature 98. She is 94% on 2 L nasal cannula. General description: The patient is a middle-aged female up in the room in no distress. Respiratory system: Unlabored breathing, clear to auscultation anteriorly. Heart S1, S2. Regular rate and rhythm. Abdomen soft, no tenderness. The left leg is currently dressed up. No obvious drainage on the dressing. LABORATORY DATA: The patient did have overall improvement in the creatinine. DIAGNOSTIC IMPRESSION AND PLAN: Patient with left leg wound with secondary cellulitis. Overall improvement. The patient to finish therapy with oral Keflex, local wound care with Santyl and close outpatient followup. MMODL / IJN: [id number] /
[2020-10-10 14:37] LABS: C-ANCA <1:20 Titer (<1:20)
[2020-10-10 14:57] VITALS: BP 150/83; PULSE 82
--- NOTE | 2020-10-10 16:27 | PN ---
PROGRESS NOTE Patient is seen for followup for acute kidney injury. Her renal function has been improving. Patient denies any significant complaints today. Her creatinine is down to 2.47 mg/dL. PHYSICAL EXAMINATION: On examination today, blood pressure was 158/95, heart rate of 76 per minute, she is afebrile. Examination of the heart S1, S2. Examination of the lungs, bilateral breath sounds are heard. Abdomen is soft, nontender. Examination of lower extremities shows chronic skin changes, trace edema noted bilaterally. LIQUOR TESTER exam grossly intact. Left foot is currently wrapped. LAB: Show sodium of 142, potassium 3.5, chloride 104, BUN 50, creatinine 2.47. ASSESSMENT: 1. Acute kidney injury, acute tubular necrosis versus secondary to vancomycin toxicity, currently improving. 2. Volume overload, currently improved. 3. Left foot wound and cellulitis status post I and D, maintained on antibiotics. 4. Dyslipidemia. 5. Obesity. PLAN: Patient can be discharged from nephrology standpoint. She is advised to avoid nonsteroidal anti-inflammatory agents. We may need to use loop diuretics if her volume status worsens as outpatient. MMODL / IJN: [id number] /
== END 2020-10-10 16:05 | disposition home or self-care (01) | DRG 622 ==
LOC: EC 17:47 → 6NMEDSUR 20:21 → OBSVTOIN 10-02 09:10 → 4SSUR 10-02 09:49 → 6PED 10-05 16:39
PROVIDERS: ADMIT Internal Medicine Geriatric Medicine; ATTEND Internal Medicine Geriatric Medicine
PROC: 0KBT0ZZ Excision of Left Lower Leg Muscle, Open Approach (ICD-10-PCS; principal; 2020-10-03 15:45)
DX: E11.622 Type 2 diabetes mellitus with other skin ulcer (principal); J96.91 Respiratory failure, unspecified with hypoxia; Z68.41 Body mass index [BMI] 40.0-44.9, adult; I87.332 Chronic venous hypertension (idiopathic) with ulcer and inflammation of left lower extremity; L03.116 Cellulitis of left lower limb; L97.222 Non-pressure chronic ulcer of left calf with fat layer exposed; E11.51 Type 2 diabetes mellitus with diabetic peripheral angiopathy without gangrene; N17.0 Acute kidney failure with tubular necrosis; I70.248 Atherosclerosis of native arteries of left leg with ulceration of other part of lower leg; Z79.84 Long term (current) use of oral hypoglycemic drugs; E11.649 Type 2 diabetes mellitus with hypoglycemia without coma; E66.01 Morbid (severe) obesity due to excess calories; B95.61 Methicillin susceptible Staphylococcus aureus infection as the cause of diseases classified elsewhere; E78.5 Hyperlipidemia, unspecified; E87.70 Fluid overload, unspecified; F17.210 Nicotine dependence, cigarettes, uncomplicated; F32.9 Major depressive disorder, single episode, unspecified; G89.29 Other chronic pain; I87.2 Venous insufficiency (chronic) (peripheral); I87.8 Other specified disorders of veins; Z20.822 Contact with and (suspected) exposure to COVID-19; I10 Essential (primary) hypertension; I25.2 Old myocardial infarction; J84.89 Other specified interstitial pulmonary diseases; J44.9 Chronic obstructive pulmonary disease, unspecified; M15.9 Polyosteoarthritis, unspecified; M79.7 Fibromyalgia; T36.8X5A Adverse effect of other systemic antibiotics, initial encounter; Z79.02 Long term (current) use of antithrombotics/antiplatelets; Z79.82 Long term (current) use of aspirin; Z79.899 Other long term (current) drug therapy; Z79.1 Long term (current) use of non-steroidal anti-inflammatories (NSAID); Z82.49 Family history of ischemic heart disease and other diseases of the circulatory system; Z83.3 Family history of diabetes mellitus; Z88.5 Allergy status to narcotic agent; Z98.51 Tubal ligation status; Z90.49 Acquired absence of other specified parts of digestive tract; Z82.0 Family history of epilepsy and other diseases of the nervous system
CPT/HCPCS: 36415; 71045; 71046; 76770; 78315; 80048; 80053; 80202; 81001; 82565; 83036; 85025; 85027; 85652; 86038; 86140; 86225; 86255; 86334; 86335; 86706; 86803; 87040; 87070; 87077; 87186; 87205; 87340; 88305; 93005; 94640; 94760; 96374; 96376; 99285

== ENCOUNTER → 2020-10-16 | Outpatient (CLI) | payer OTHER ==
[2020-10-16 13:29] LABS: Basophils # (A) 0.1 k/uL (0-0.2); Basophils % (A) 1 %; Eosinophils # (A) 0.2 k/uL (0-0.7); Eosinophils % (A) 3 %; HCT 38.1 % (34.0-46.0); HGB 12.9 gm/dL (11.4-16.0); Lymphocytes # (A) 1.6 k/uL (1.0-4.8); Lymphocytes % (A) 22 %; MCH 31.8 pg (25.0-35.0); MCHC 33.7 g/dL (31.0-37.0); MCV 94.2 fL (80.0-100.0); Mean Platelet Volume 9.2; Monocytes # (A) 0.5 k/uL (0-1.0); Monocytes % (A) 7 %; Neutrophils # (A) 4.6 k/uL (1.3-7.7); Neutrophils % (A) 64 %; Platelet Count 274 k/uL (150-450); RBC 4.05 m/uL (3.80-5.40); RDW 13.8 % (11.5-15.5); WBC 7.2 k/uL (3.8-10.6)
[2020-10-16 13:45] LABS: African American GFR (CKD) >90 (>60 ml/min/1.73 sqM); Anion Gap 7 mmol/L; Blood Urea Nitrogen 12 mg/dL (7-17); Calcium 9.1 mg/dL (8.4-10.2); Carbon Dioxide 31 mmol/L (22-30); Chloride 106 mmol/L (98-107); Glucose 84 mg/dL (74-99); Non-African American GFR(CKD) 83 (>60 ml/min/1.73 sqM); Potassium 3.4 mmol/L (3.5-5.1); Sodium 144 mmol/L (137-145)
== END | disposition home or self-care (01) ==
LOC: LABWHC1 13:13
PROVIDERS: ATTEND Nurse Practitioner Family
DX: N17.9 Acute kidney failure, unspecified (principal)
CPT/HCPCS: 36415; 80048; 85025

== ENCOUNTER → 2021-01-29 | Outpatient (CLI) | payer OTHER ==
--- NOTE | 2021-01-29 12:40 | XR ---
EXAMINATION TYPE: XR chest 2V DATE OF EXAM: 01/29/2021 COMPARISON: Prior chest x-ray October 09, 2020 HISTORY: Shortness of breath. TECHNIQUE: Frontal and lateral views of the chest are obtained. FINDINGS: There is no suspicious new focal air space opacity, pleural effusion, or pneumothorax seen . Stable cardiomegaly. The osseous structures are intact. IMPRESSION: Cardiomegaly without acute pulmonary process currently.
== END | disposition home or self-care (01) ==
LOC: RADXRMAIN 11:35
PROVIDERS: ATTEND Internal Medicine Pulmonary Disease
DX: I51.7 Cardiomegaly (principal)
CPT/HCPCS: 71046

== ENCOUNTER → 2022-08-18 | Outpatient (CLI) | payer OTHER ==
[2022-08-18 16:48] LABS: ALT 27 U/L (8-44); AST 14 U/L (13-35); African American GFR (CKD) 110.7 (60.0-200.0); Albumin 4.1 g/dL (3.8-4.9); Albumin/Globulin Ratio 1.78 (1.60-3.17); Alkaline Phosphatase 125 U/L (41-126); Blood Urea Nitrogen 9.8 mg/dL (9.0-27.0); Calcium 9.4 mg/dL (8.7-10.3); Carbon Dioxide 28.8 mmol/L (20.0-27.5); Chloride 104 mmol/L (96-109); Chol/HDL Ratio 4.31 Ratio; Globulin 2.3 g/dL (1.6-3.3); Glucose 211 mg/dL (70-110); LDL Cholesterol,Calculated 81.9 mg/dL (0.0-131.0); Non-African American GFR(CKD) 95.5 (60.0-200.0); Potassium 4.6 mmol/L (3.5-5.5); Sodium 141 mmol/L (135-145); Total Protein 6.4 g/dL (6.2-8.2)
[2022-08-18 18:03] LABS: Basophils # (A) 0.06 X 10*3/uL (0.00-0.10); Basophils % (A) 0.6 %; Eosinophils # (A) 0.17 X 10*3/uL (0.04-0.35); Eosinophils % (A) 1.6 %; HCT 47.5 % (37.2-46.3); HGB 15.6 g/dL (12.0-15.0); Immature Grans, Automated 0.5 %; Lymphocytes # (A) 2.59 X 10*3/uL (0.90-5.00); Lymphocytes % (A) 24.1 %; MCHC 32.8 g/dL (32.0-37.0); MCV 97.3 fL (80.0-97.0); Mean Platelet Volume 13.6 fL (9.5-12.2); Monocytes # (A) 0.65 X 10*3/uL (0.20-1.00); Monocytes % (A) 6.1 %; NRBC Per 100 WBC 0 /100 WBCS (0.0-0.0); Neutrophils # (A) 7.21 X 10*3/uL (1.80-7.70); Neutrophils % (A) 67.1 %; Platelet Count 195 X 10*3/uL (140-440); RBC 4.88 X 10*6/uL (4.10-5.20); RDW 13.7 % (11.5-14.5); WBC 10.73 X 10*3/uL (4.50-10.00)
[2022-08-18 18:31] LABS: Microalbumin Creatinine Ratio <30 mg/g Creat (0-30); Urine Creatinine 92.8 mg/dL (28.0-217.0)
== END | disposition home or self-care (01) ==
LOC: LABWHC1 09:11
PROVIDERS: ATTEND Psychiatry & Neurology Neurology
DX: E11.65 Type 2 diabetes mellitus with hyperglycemia (principal); E78.5 Hyperlipidemia, unspecified; E55.9 Vitamin D deficiency, unspecified; E53.9 Vitamin B deficiency, unspecified; M79.7 Fibromyalgia; G43.909 Migraine, unspecified, not intractable, without status migrainosus; M19.90 Unspecified osteoarthritis, unspecified site
CPT/HCPCS: 36415; 80053; 80061; 82043; 82306; 82570; 82607; 83036; 84207; 85025; 93005

== ENCOUNTER → 2023-05-08 | Outpatient (CLI) | payer OTHER | END | disposition home or self-care (01) | LOC: LABWHC1 09:34 | PROVIDERS: ATTEND Psychiatry & Neurology Neurology | DX: I49.9 Cardiac arrhythmia, unspecified (principal) | CPT/HCPCS: 36415; 93005 ==